=== PATIENT | male | born 1950 | race Two or more races ===

== ENCOUNTER → 2017-07-25 | Outpatient (CLI) | payer MEDICARE, BC ==
--- NOTE | 2017-07-25 09:05 | US ---
EXAMINATION TYPE: US abdomen limited DATE OF EXAM: 07/25/2017 COMPARISON: US 07/22/2008, CT 07/21/2015 CLINICAL HISTORY: R74.8 ABN Levels Of Other Serum Enzymes. Difficult and limited exam due to overlyin g bowel gas and patient body habitus EXAM MEASUREMENTS: Liver Length: 13.6 cm Gallbladder Wall: 0.2 cm CBD: 0.4 cm Right Kidney: 12.3 x 5.5 x 4.9 cm Pancreas: Obscured by bowel gas Liver: Limited visualization due to overlying bowel gas. Visualized portions are heterogeneous Gallbladder: wnl Evidence for sonographic Ferrara's sign: No CBD: wnl as visualized, distal portion obscured by bowel gas Right Kidney: No hydronephrosis or masses seen IMPRESSION: 1. Visualized right upper quadrant ultrasound is unremarkable. There is some limitation due to bowel gas and body habitus.
== END | disposition home or self-care (01) ==
LOC: RADUSWWP 08:16
PROVIDERS: ATTEND Family Medicine
DX: R74.8 Abnormal levels of other serum enzymes (principal)
CPT/HCPCS: 76705

== ENCOUNTER 2018-11-01 20:29 | Emergency (ER) | payer BC, MEDICARE ==
[2018-11-01] MEDS ORDERED: DEXAMETHASONE SOD PHOSPHATE 10 MG/ML 1 ML VIAL IM STA (21:55)
--- NOTE | 2018-11-01 22:20 | ED ---
General Adult HPI - General Source: patient, EMS, RN notes reviewed, old records reviewed Mode of arrival: EMS <Alejo Araujo - Last Filed: 11/01/18 23:21> <Iris Gaines - Last Filed: 11/02/18 21:18> - General Chief complaint: Weakness Stated complaint: Weakness Time Seen by Provider: 11/01/18 21:47 - History of Present Illness Initial comments: 67-year-old male patient with no pertinent past history presents ED chief complaint of back strain and decreased sensation and strength in lower extremities. Patient reports that he is very active today, moved a heavy stove. Denies any falls or trauma. Patient was that he was having back pain earlier. Patient reports that he sat down, and then experienced bouts of left paralumbar back pain. Patient now reports that he has loss of sensation in lower extremities, general region, significant weakness in his left lower extremity, moderate weakness in his right lower extremity. Patient denies any loss of bowel or bladder control. Patient denies any other complaints at this time. Systemic: Pt denies fatigue, fever/chills, rash. Pt denies weakness, night sweats, weight loss. Neuro: Pt denies headache, visual disturbances, syncope or pre-syncope. HEENT: Pt denies ocular discharge or irritation, otalgia, rhinorrhea, pharyngitis or notable lymphadenopathy. Cardiopulmonary: Pt denies chest pain, SOB, heart palpitations, dyspnea on exertion. Abdominal/GI: Pt denies abdominal pain, n/v/d. : Pt denies dysuria, burning w/ urination, frequency/urgency. Denies new onset urinary or bowel incontinence. MSK: Pt denies myalgia Neuro: Pt denies new onset weakness. (Alejo Araujo) - Related Data Home Medications Medication Instructions Recorded Confirmed Doxazosin Mesylate 4 mg PO HS 12/11/15 11/01/18 Felodipine [Felodipine ER] 10 mg PO DAILY 12/11/15 11/01/18 Hydrochlorothiazide 25 mg PO DAILY 12/11/15 11/01/18 Losartan Potassium 100 mg PO DAILY 12/11/15 11/01/18 Potassium Chloride ER [K-Dur 10] 10 meq PO DAILY 12/11/15 11/01/18 Allergies Allergy/AdvReac Type Severity Reaction Status Date / Time No Known Allergies Allergy Verified 11/01/18 21:43 Review of Systems ROS Other: All systems not noted in ROS Statement are negative. <Alejo Araujo - Last Filed: 11/01/18 23:21> ROS Other: All systems not noted in ROS Statement are negative. <Iris Gaines Lj - Last Filed: 11/02/18 21:18> ROS Statement: Those systems with pertinent positive or pertinent negative responses have been documented in the HPI. Past Medical History Past Medical History: Hypertension 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 Past Surgical History: No Surgical Hx Reported Past Psychological History: No Psychological Hx Reported Smoking Status: Never smoker Past Alcohol Use History: None Reported Past Drug Use History: None Reported <Alejo Araujo - Last Filed: 11/01/18 23:21> General Exam <Alejo Araujo - Last Filed: 11/01/18 23:21> - General Exam Comments Initial Comments: Constitutional: NAD, AOX3, Pt has pleasant affect. HEENT: NC/AT, trachea midline, neck supple, no lymphadenopathy. Posterior pharynx non erythematous, without exudates. External ears appear normal, without discharge. Mucous membranes moist. Eyes PERRLA, EOM intact. There is no scleral icterus. No pallor noted. Cardiopulmonary: RRR, no murmurs, rubs or gallops, no JVD noted. Lungs CTAB in anterior and posterior moore. No peripheral edema. Abdominal exam: Abdomen soft and non-distended. Abdomen non-tender to palpation in all 4 quadrants. Bowel sounds active in LLQ. No hepatosplenomegaly. No ecchymosis Neuro: CN II-XII grossly intact. No nuchal rigidity. No raccon eyes, no green sign, no hemotympanum. No cervical spinal tenderness. MSK: Significant decreased strength range of motion in lower extremities bilaterally. Sensation intact. 2/5 bilaterally. Rectal: Rectal tone diminished (Alejo Araujo) Course Vital Signs 11/01/18 11/01/18 11/01/18 20:52 22:28 23:31 Temperature 97.1 F L 98 F Pulse Rate 76 62 82 Respiratory 16 18 18 Rate Blood Pressure 143/90 124/94 153/95 O2 Sat by Pulse 98 96 98 Oximetry 11/02/18 00:06 Temperature Pulse Rate 82 Respiratory 17 Rate Blood Pressure 142/92 O2 Sat by Pulse 96 Oximetry Medical Decision Making - Lab Data Result diagrams: 11/01/18 22:05 11/01/18 22:05 <Alejo Araujo - Last Filed: 11/01/18 23:21> - Lab Data Result diagrams: 11/01/18 22:05 11/01/18 22:05 <Iris Gaines - Last Filed: 11/02/18 21:18> - Medical Decision Making 67-year-old male patient with no pertinent past history presents ED chief complaint of back strain and decreased sensation and strength in lower extremities. Patient reports that he is very active today, moved a heavy stove. Denies any falls or trauma. Patient was that he was having back pain earlier. Patient reports that he sat down, and then experienced bouts of left paralumbar back pain. Patient now reports that he has loss of sensation in lower extremities, general region, significant weakness in his left lower extremity, moderate weakness in his right lower extremity. Patient denies any loss of bowel or bladder control. Patient denies any other complaints at this time. Pt VSS, afebrile. Physical exam displayed: Significant decreased strength range of motion in lower extremities bilaterally. 2/5 bilaterally. Sensation intact. Rectal tone diminished. CT lumbar spine did not display process. Patient labs investigations unremarkable. Patient administered 10 mg Decadron. Bladder scan displayed >500, straight catheter performed. Patient will be transferred to [facility] for emergent MRI and neurosurgery. Case discussed and pt seen by Dr. Gaines. (Alejo Araujo) I personally saw and evaluated this patient. This is a 67-year-old gentleman who is ambulating in helping move a stove earlier today, sat down and became weak in his lower extremities. At this time the patient has decreased sensation in his bilateral lower extremities, near complete paralysis of his left lower extremity, he is able to move his right hip but paralysis distal to the knee. In addition the patient has acute urinary retention and reports loss of sensatio n in his groin and testicles. At this time I feel the patient requires further workup with an emergent MRI and consultation with neurosurgery. Patient care was discussed with transfer team at [facility], patient was accepted to the ER as a transfer by Dr. Lutz. (Iris Gaines) - Lab Data Lab Results 11/01/18 11/01/18 Range/Units 22:05 22:05 WBC 8.2 (3.8-10.6) k/uL RBC 4.71 (4.30-5.90) m/uL Hgb 14.7 (13.0-17.5) gm/dL Hct 43.5 (39.0-53.0) % MCV 92.4 (80.0-100.0) fL MCH 31.2 (25.0-35.0) pg MCHC 33.7 (31.0-37.0) g/dL RDW 14.5 (11.5-15.5) % Plt Count 233 (150-450) k/uL Neutrophils % 84 % Lymphocytes % 10 % Monocytes % 4 % Eosinophils % 1 % Basophils % 0 % Neutrophils # 6.9 (1.3-7.7) k/uL Lymphocytes # 0.9 L (1.0-4.8) k/uL Monocytes # 0.3 (0-1.0) k/uL Eosinophils # 0.1 (0-0.7) k/uL Basophils # 0.0 (0-0.2) k/uL Sodium 139 (137-145) mmol/L Potassium 3.3 L (3.5-5.1) mmol/L Chloride 102 (98-107) mmol/L Carbon Dioxide 26 (22-30) mmol/L Anion Gap 11 mmol/L BUN 17 (9-20) mg/dL Creatinine 0.61 L (0.66-1.25) mg/dL Est GFR (CKD-EPI)AfAm >90 (>60 ml/min/1.73 sqM) Est GFR (CKD-EPI)NonAf >90 (>60 ml/min/1.73 sqM) Glucose 125 H (74-99) mg/dL Calcium 9.8 (8.4-10.2) mg/dL Total Bilirubin 0.5 (0.2-1.3) mg/dL AST 41 (17-59) U/L ALT 57 (21-72) U/L Alkaline Phosphatase 100 (38-126) U/L Total Protein 7.7 (6.3-8.2) g/dL Albumin 4.5 (3.5-5.0) g/dL Disposition Is patient prescribed a controlled substance at d/c from ED?: No - Out of Hospital Transfer - Req. Specs Out of Hospital Transfer - Requested Specifics: Other Emergency Center ([facility]) <Alejo Araujo - Last Filed: 11/01/18 23:21> <Iris Gaines - Last Filed: 11/02/18 21:18> Clinical Impression: Lower extremity weakness Disposition: OTHER INSTITUTION NOT DEFINED Condition: Serious Referrals: Rip Baez DO [Primary Care Provider] - 1-2 days
[2018-11-01] MEDS ORDERED: ONDANSETRON 4 MG/2 ML VIAL IVP STA (22:31)
[2018-11-01 22:35] LABS: Basophils % (A) 0 %; Eosinophils # (A) 0.1 k/uL (0-0.7); Eosinophils % (A) 1 %; HCT 43.5 % (39.0-53.0); HGB 14.7 gm/dL (13.0-17.5); Lymphocytes # (A) 0.9 k/uL (1.0-4.8); Lymphocytes % (A) 10 %; MCH 31.2 pg (25.0-35.0); MCHC 33.7 g/dL (31.0-37.0); MCV 92.4 fL (80.0-100.0); Mean Platelet Volume 7.3; Monocytes # (A) 0.3 k/uL (0-1.0); Monocytes % (A) 4 %; Neutrophils # (A) 6.9 k/uL (1.3-7.7); Neutrophils % (A) 84 %; Platelet Count 233 k/uL (150-450); RBC 4.71 m/uL (4.30-5.90); RDW 14.5 % (11.5-15.5); WBC 8.2 k/uL (3.8-10.6)
[2018-11-01 22:52] LABS: ALT 57 U/L (21-72); AST 41 U/L (17-59); African American GFR (CKD) >90 (>60 ml/min/1.73 sqM); Albumin 4.5 g/dL (3.5-5.0); Alkaline Phosphatase 100 U/L (38-126); Anion Gap 11 mmol/L; Blood Urea Nitrogen 17 mg/dL (9-20); Calcium 9.8 mg/dL (8.4-10.2); Carbon Dioxide 26 mmol/L (22-30); Chloride 102 mmol/L (98-107); Glucose 125 mg/dL (74-99); Potassium 3.3 mmol/L (3.5-5.1); Sodium 139 mmol/L (137-145); Total Bilirubin 0.5 mg/dL (0.2-1.3); Total Protein 7.7 g/dL (6.3-8.2)
--- NOTE | 2018-11-01 23:03 | CT ---
EXAM: CT Lumbar Spine Without Intravenous Contrast CLINICAL HISTORY: Low back pain after moving appliances. TECHNIQUE: Axial computed tomography images of the lumbar spine without intravenous contrast. DLP is 1238 mGy-cm. This CT exam was performed using one or more of the following dose reduction techniques: automated exposure control, adjustment of the mA and/or kV according to patient size, and/or use of iterative reconstruction technique. Coronal and sagittal reconstructions are performed COMPARISON: No relevant prior studies available. FINDINGS: Vertebrae: Normal alignment. No fracture. Discs/spinal canal/neural foramina: Moderate degenerative disc disease, characterized by disc space narrowing, circumferential disc bulge/osteophyte complex, ligamentum flavum thickening, and hypertrophic facet arthropathy, causing various degrees of mild thecal sac compression and mild to moderate neural foraminal narrowing, worse in lower lumbar spine especially on the right. Soft tissues: Unremarkable. Kidneys and ureters: 3 mm nonobstructing midpole right renal stone. IMPRESSION: No acute findings. Moderate degenerative disc disease
[2018-11-01 23:32] VITALS: PULSE 82; TEMP 98
[2018-11-01] MEDS ORDERED: KETOROLAC 30 MG/ML 1 ML VIAL IVP STA (23:46)
[2018-11-02 00:07] VITALS: BP 142/92; RESP 17
== END 2018-11-02 00:10 | disposition short-term general hospital (02) ==
LOC: EC 20:29
DX: R29.898 Other symptoms and signs involving the musculoskeletal system (principal); K62.89 Other specified diseases of anus and rectum; G83.14 Monoplegia of lower limb affecting left nondominant side; G83.11 Monoplegia of lower limb affecting right dominant side; R33.9 Retention of urine, unspecified; N50.89 Other specified disorders of the male genital organs; M54.5 Low back pain; I10 Essential (primary) hypertension; Z79.899 Other long term (current) drug therapy; X50.0XXA Overexertion from strenuous movement or load, initial encounter
CPT/HCPCS: 99285; 51701; 96374; 96375; 96372; 36415; 80053; 85025; 72131; J1100; J2405; J1885

== ENCOUNTER 2019-01-05 12:25 | Emergency (ER) | payer MEDICARE, BC ==
[2019-01-05 12:41] VITALS: RESP 18; TEMP 98.4
--- NOTE | 2019-01-05 13:57 | ED ---
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 He has to straight cath himself and is incontinent of stool. Patient reports that he has of yesterday evening into today started at 7 hematuria, lower pelvic pain and pressure. He reports that when he Himself he noticed some bloody urine. He also states that he's been having irregular stools and has had a hard time with bowel "training". - Related Data Home Medications Medication Instructions Recorded Confirmed Doxazosin Mesylate 4 mg PO HS 12/11/15 11/01/18 Felodipine [Felodipine ER] 10 mg PO DAILY 12/11/15 11/01/18 Hydrochlorothiazide 25 mg PO DAILY 12/11/15 11/01/18 Losartan Potassium 100 mg PO DAILY 12/11/15 11/01/18 Potassium Chloride ER [K-Dur 10] 10 meq PO DAILY 12/11/15 11/01/18 Previous Rx's Medication Instructions Recorded Ciprofloxacin HCl [Cipro] 500 mg PO Q12HR 10 Days #20 tab 01/05/19 Allergies Allergy/AdvReac Type Severity Reaction Status Date / Time No Known Allergies Allergy Verified 01/05/19 12:41 Review of Systems ROS Statement: Those systems with pertinent positive or pertinent negative responses have been documented in the HPI. ROS Other: All systems not noted in ROS Statement are negative. Past Medical History Past Medical History: CVA/TIA, Hypertension 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 Past Surgical History: No Surgical Hx Reported Past Psychological History: No Psychological Hx Reported Smoking Status: Never smoker Past Alcohol Use History: None Reported Past Drug Use History: None Reported General Exam Limitations: physical limitation General appearance: alert, in no apparent distress Head exam: Present: atraumatic, normocephalic, normal inspection Eye exam: Present: normal appearance, PERRL, EOMI. Absent: scleral icterus, conjunctival injection, periorbital swelling ENT exam: Present: normal exam, mucous membranes moist Neck exam: Present: normal inspection. Absent: tenderness, meningismus, lymphadenopathy Respiratory exam: Present: normal lung sounds bilaterally. Absent: respiratory distress, wheezes, rales, rhonchi, stridor Cardiovascular Exam: Present: regular rate, normal rhythm, normal heart sounds. Absent: systolic murmur, diastolic murmur, rubs, gallop, clicks GI/Abdominal exam: Present: soft, tenderness (suprapubic), normal bowel sounds. Absent: distended, guarding, rebound, rigid Extremities exam: Present: normal inspection, full ROM, normal capillary refill, other (paralysis lower extremity). Absent: tenderness, pedal edema, joint swelling, calf tenderness Back exam: Present: normal inspection Neurological exam: Present: alert, oriented X3, CN II-XII intact Course Vital Signs 01/05/19 01/05/19 12:37 15:59 Temperature 98.4 F Pulse Rate 77 74 Respiratory 18 18 Rate Blood Pressure 158/98 143/98 O2 Sat by Pulse 98 97 Oximetry Medical Decision Making - Medical Decision Making 60-year-old male presents today with a history of paralysis and lower sternum is due to spinal cord stroke. He has a straight cath himself. Patient complains of some hematuria, lower pelvic pressure. At this time patient's labwork was reviewed to show evidence of a urinary tract infection. Patient was given 1 dose of IV Rocephin, and urine culture completed. We'll put the Patient on Cipro for discharge. Discussed the importance of sterile technique with straight cathing. Discussed return parameters. - Lab Data Result diagrams: 01/05/19 14:24 01/05/19 14:24 Lab Results 01/05/19 01/05/19 01/05/19 Range/Units 14:10 14:24 14:24 WBC 5.1 (3.8-10.6) k/uL RBC 4.46 (4.30-5.90) m/uL Hgb 14.2 (13.0-17.5) gm/dL Hct 41.8 (39.0-53.0) % MCV 93.8 (80.0-100.0) fL MCH 31.9 (25.0-35.0) pg MCHC 34.1 (31.0-37.0) g/dL RDW 13.6 (11.5-15.5) % Plt Count 279 (150-450) k/uL Neutrophils % 59 % Lymphocytes % 20 % Monocytes % 11 % Eosinophils % 5 % Basophils % 1 % Neutrophils # 3.0 (1.3-7.7) k/uL Lymphocytes # 1.0 (1.0-4.8) k/uL Monocytes # 0.6 (0-1.0) k/uL Eosinophils # 0.3 (0-0.7) k/uL Basophils # 0.1 (0-0.2) k/uL Sodium 139 (137-145) mmol/L Potassium 4.1 (3.5-5.1) mmol/L Chloride 105 (98-107) mmol/L Carbon Dioxide 27 (22-30) mmol/L Anion Gap 7 mmol/L BUN 16 (9-20) mg/dL Creatinine 0.52 L (0.66-1.25) mg/dL Est GFR (CKD-EPI)AfAm >90 (>60 ml/min/1.73 sqM) Est GFR (CKD-EPI)NonAf >90 (>60 ml/min/1.73 sqM) Glucose 111 H (74-99) mg/dL Calcium 9.3 (8.4-10.2) mg/dL Total Bilirubin 0.4 (0.2-1.3) mg/dL AST 19 (17-59) U/L ALT 24 (21-72) U/L Alkaline Phosphatase 108 (38-126) U/L Total Protein 6.4 (6.3-8.2) g/dL Albumin 3.6 (3.5-5.0) g/dL Urine Color Yellow Urine Appearance Turbid (Clear) Urine pH 6.0 (5.0-8.0) Ur Specific [place] 1.019 (1.001-1.035) Urine Protein 1+ H (Negative) Urine Glucose (UA) Negative (Negative) Urine Ketones Negative (Negative) Urine Blood Moderate H (Negative) Urine Nitrite Positive (Negative) Urine Bilirubin Negative (Negative) Urine Urobilinogen <2.0 (<2.0) mg/dL Ur Leukocyte Esterase Large H (Negative) Urine RBC 70 H (0-5) /hpf Urine WBC >182 H (0-5) /hpf Urine WBC Clumps Many H (None) /hpf Urine Bacteria Few H (None) /hpf Disposition Clinical Impression: UTI (urinary tract infection), Cystitis Disposition: HOME SELF-CARE Condition: Good Instructions (If sedation given, give patient instructions): Catheter- associated Urinary Tract Infection (ED) Additional Instructions: Patient advised to take antibiotics as prescribed. Patient should use proper technique with self cathing. Return to the emergency department if any alarming signs or symptoms occur. Prescriptions: Ciprofloxacin HCl [Cipro] 500 mg PO Q12HR 10 Days #20 tab Is patient prescribed a controlled substance at d/c from ED?: No Referrals: Rip Baez DO [Primary Care Provider] - 1-2 days Time of Disposition: 15:12
[2019-01-05 14:40] LABS: Appearance,Urine Turbid (Clear); Bacteria,Urine Few /hpf; Bilirubin,Urine Negative (Negative); Blood,Urine Moderate (Negative); Color,Urine Yellow; Glucose,Urine (UA) Negative (Negative); Ketones,Urine Negative (Negative); Leukocyte Esterase,Urine Large (Negative); Nitrite,Urine Positive (Negative); Protein,Urine 1+ (Negative); RBC,Urine 70 /hpf (0-5); Specific Gravity,Urine 1.019 (1.001-1.035); Urobilinogen,Urine <2.0 mg/dL (<2.0)
[2019-01-05 14:48] LABS: ALT 24 U/L (21-72); AST 19 U/L (17-59); African American GFR (CKD) >90 (>60 ml/min/1.73 sqM); Albumin 3.6 g/dL (3.5-5.0); Alkaline Phosphatase 108 U/L (38-126); Anion Gap 7 mmol/L; Blood Urea Nitrogen 16 mg/dL (9-20); Calcium 9.3 mg/dL (8.4-10.2); Carbon Dioxide 27 mmol/L (22-30); Chloride 105 mmol/L (98-107); Glucose 111 mg/dL (74-99); Potassium 4.1 mmol/L (3.5-5.1); Sodium 139 mmol/L (137-145); Total Bilirubin 0.4 mg/dL (0.2-1.3); Total Protein 6.4 g/dL (6.3-8.2)
[2019-01-05 14:58] LABS: Basophils # (A) 0.1 k/uL (0-0.2); Basophils % (A) 1 %; Eosinophils # (A) 0.3 k/uL (0-0.7); Eosinophils % (A) 5 %; HCT 41.8 % (39.0-53.0); HGB 14.2 gm/dL (13.0-17.5); Lymphocytes % (A) 20 %; MCH 31.9 pg (25.0-35.0); MCHC 34.1 g/dL (31.0-37.0); MCV 93.8 fL (80.0-100.0); Mean Platelet Volume 5.9; Monocytes # (A) 0.6 k/uL (0-1.0); Monocytes % (A) 11 %; Neutrophils % (A) 59 %; Platelet Count 279 k/uL (150-450); RBC 4.46 m/uL (4.30-5.90); RDW 13.6 % (11.5-15.5); WBC 5.1 k/uL (3.8-10.6)
[2019-01-05 16:00] VITALS: BP 143/98; PULSE 74
== END 2019-01-05 16:13 | disposition home or self-care (01) ==
LOC: EC 12:25
DX: N30.91 Cystitis, unspecified with hematuria (principal); G83.89 Other specified paralytic syndromes; R15.9 Full incontinence of feces; I10 Essential (primary) hypertension; Z79.899 Other long term (current) drug therapy; Z86.73 Personal history of transient ischemic attack (TIA), and cerebral infarction without residual deficits
CPT/HCPCS: 36415; 80053; 85025; 81001; 87086; 99284; 51701; 96365; J0696; 87077; 87186

== ENCOUNTER 2019-01-18 07:34 | Emergency (ER) | payer MEDICARE, BC ==
[2019-01-18 07:40] VITALS: TEMP 97.9
--- NOTE | 2019-01-18 08:22 | ED ---
Male Urogenital HPI - General Chief complaint: Urogenital Stated complaint: catheter problems Time Seen by Provider: 01/18/19 07:42 Source: patient Mode of arrival: wheelchair Limitations: physical limitation - History of Present Illness Initial comments: 68-year-old male with history of spinal stroke presents emergency department for chief complaint of inability to pass catheter.patient states he recently had a spinal stroke and was at a rehabilitation center, where he was taught how to self catheterize due to urinary retention from residual spinal injury. Patient states today around 5:30 AM he was unable to pass the catheter fully into his bladder. He states he is unable to get urinary return. Patient states he feels like he is blocked by in origin. Patient denies any significant abdominal pain elicited by pressure. Patient denies any chest pain, testicular pain or shortness of breath, headache dizziness. Patient states he has an appointment tomorrow to address elevated BP reading with PCP. Pt states he recently was being treated with ABX for UTI. Denies urologic care. Denies fevers. Remaining ROS (-). Upon arrival bP elevated, pt afebrile. Wheel care bound appears nontoxic/well. No distress. - Related Data Home Medications Medication Instructions Recorded Confirmed Doxazosin Mesylate 4 mg PO HS 12/11/15 11/01/18 Felodipine [Felodipine ER] 10 mg PO DAILY 12/11/15 11/01/18 Hydrochlorothiazide 25 mg PO DAILY 12/11/15 11/01/18 Losartan Potassium 100 mg PO DAILY 12/11/15 11/01/18 Potassium Chloride ER [K-Dur 10] 10 meq PO DAILY 12/11/15 11/01/18 Previous Rx's Medication Instructions Recorded Ciprofloxacin HCl [Cipro] 500 mg PO Q12HR 10 Days #20 tab 01/05/19 Allergies Allergy/AdvReac Type Severity Reaction Status Date / Time No Known Allergies Allergy Verified 01/18/19 07:35 Review of Systems ROS Statement: Those systems with pertinent positive or pertinent negative responses have been documented in the HPI. ROS Other: All systems not noted in ROS Statement are negative. Past Medical History Past Medical History: CVA/TIA, Hypertension 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 Past Surgical History: No Surgical Hx Reported Past Psychological History: No Psychological Hx Reported Smoking Status: Never smoker Past Alcohol Use History: None Reported Past Drug Use History: None Reported General Exam - General Exam Comments Initial Comments: General: The patient is awake and alert, in no distress, and does not appear acutely ill. Eye: +3 mm pupils are equal, round and reactive to light, extra-ocular movements are intact. No nystagmus. There is normal conjunctiva bilaterally. No signs of icterus. Cardiovascular: There is a regular rate and rhythm. No murmur, rub or gallop is appreciated. Respiratory: Lungs are clear to auscultation, respirations are non-labored, breath sounds are equal. No wheezes, stridor, rales, or rhonchi. Gastrointestinal: Soft, non-distended, non-tender abdomen without masses or organomegaly noted. There is no rebound or guarding present. Musculoskeletal: Normal ROM, no tenderness. Strength 5/5. Sensation intact. Radidal pulses equal bilaterally 2+. Neurological: A&O x 3. CN II-XII intact grossly, wheelchair bound. Coordination appears grossly intact. Speech is normal. Skin: Skin is warm and dry and no rashes or lesions are noted. Psychiatric: Cooperative, appropriate mood & affect, normal judgment. Limitations: physical limitation Course Vital Signs 01/18/19 07:35 Temperature 97.9 F Pulse Rate 74 Respiratory 18 Rate Blood Pressure 186/104 O2 Sat by Pulse 98 Oximetry Medical Decision Making - Medical Decision Making 68-year-old male presenting to the emergency department for evaluation of unable to pass self-catheterization. No fevers no flank pain. Abdominal exam benign.Urinary catheter was placed without difficulty. Urinalysis unremarkable for infection. Patient's catheter was left in place. Patient has primary care provider appointment tomorrow where I recommended attempt at removal. Patient given urological f/u. Return parameters discussed, pateint discharged appearing well. case discussed with attending provider who is agreeable care plan discharge at this time. Patient was agreeable. - Lab Data Lab Results 01/18/19 Range/Units 08:25 Urine Color Yellow Urine Appearance Clear (Clear) Urine pH 6.5 (5.0-8.0) Ur Specific [place] 1.014 (1.001-1.035) Urine Protein Negative (Negative) Urine Glucose (UA) Negative (Negative) Urine Ketones Negative (Negative) Urine Blood Negative (Negative) Urine Nitrite Negative (Negative) Urine Bilirubin Negative (Negative) Urine Urobilinogen <2.0 (<2.0) mg/dL Ur Leukocyte Esterase Small H (Negative) Disposition Clinical Impression: Urinary retention Disposition: HOME SELF-CARE Condition: Good Additional Instructions: Please use medication as discussed. Please follow-up with family doctor in the next 2 days, and urology as discussed. Can attempt catheter removal with PCP tomorrow. Please return to emergency room if the symptoms increase or worsen or for any other concerns-fevers. Is patient prescribed a controlled substance at d/c from ED?: No Referrals: Rip Baez DO [Primary Care Provider] - 1-2 days Eb Kelley MD [STAFF PHYSICIAN] - 1-2 days Time of Disposition: 08:37
[2019-01-18 09:01] LABS: Appearance,Urine Clear (Clear); Bilirubin,Urine Negative (Negative); Blood,Urine Negative (Negative); Color,Urine Yellow; Glucose,Urine (UA) Negative (Negative); Ketones,Urine Negative (Negative); Leukocyte Esterase,Urine Small (Negative); Nitrite,Urine Negative (Negative); PH, Urine 6.5 (5.0-8.0); Protein,Urine Negative (Negative); Specific Gravity,Urine 1.014 (1.001-1.035); Urobilinogen,Urine <2.0 mg/dL (<2.0)
[2019-01-18 09:05] VITALS: BP 180/88; PULSE 70; RESP 16
[2019-01-18 09:50] LABS: Amorphous Sediment,Urine Few /hpf
== END 2019-01-18 08:41 | disposition home or self-care (01) ==
LOC: EC 07:34
DX: R33.9 Retention of urine, unspecified (principal); I10 Essential (primary) hypertension; Z79.899 Other long term (current) drug therapy; Z99.3 Dependence on wheelchair; Z86.73 Personal history of transient ischemic attack (TIA), and cerebral infarction without residual deficits
CPT/HCPCS: 51702; 81001; 99283

== ENCOUNTER 2019-02-12 16:44 | Emergency (ER) | payer MEDICARE ==
--- NOTE | 2019-02-12 17:25 | ED ---
Male Urogenital HPI - General Chief complaint: Urogenital Stated complaint: UTI Time Seen by Provider: 02/12/19 17:05 Source: patient Mode of arrival: wheelchair Limitations: physical limitation - History of Present Illness Initial comments: patient is a 68-year-old male presenting to the emergency department with a chief complaint of testicular tenderness or swelling. Patient reports he developed some swelling over the last few days. 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 He went to his primary care who present to come to the ED for further evaluation. Patient reports testicular tenderness and swelling particularly on the right side. Patient has a nausea vomiting diarrhea abdominal pain. Denies taking any medication to alleviate the symptoms. - Related Data Home Medications Medication Instructions Recorded Confirmed Doxazosin Mesylate 4 mg PO HS 12/11/15 11/01/18 Felodipine [Felodipine ER] 10 mg PO DAILY 12/11/15 11/01/18 Hydrochlorothiazide 25 mg PO DAILY 12/11/15 11/01/18 Losartan Potassium 100 mg PO DAILY 12/11/15 11/01/18 Potassium Chloride ER [K-Dur 10] 10 meq PO DAILY 12/11/15 11/01/18 Previous Rx's Medication Instructions Recorded Ciprofloxacin HCl [Cipro] 500 mg PO Q12HR 10 Days #20 tab 01/05/19 Ciprofloxacin HCl [Cipro] 500 mg PO Q12HR #28 tablet 02/12/19 Allergies Allergy/AdvReac Type Severity Reaction Status Date / Time No Known Allergies Allergy Verified 02/12/19 17:04 Review of Systems ROS Statement: Those systems with pertinent positive or pertinent negative responses have been documented in the HPI. ROS Other: All systems not noted in ROS Statement are negative. Past Medical History Past Medical History: CVA/TIA, Hypertension 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 Past Surgical History: No Surgical Hx Reported Past Psychological History: No Psychological Hx Reported Smoking Status: Never smoker Past Alcohol Use History: None Reported Past Drug Use History: None Reported General Exam Limitations: physical limitation General appearance: alert, in no apparent distress Head exam: Present: atraumatic, normocephalic, normal inspection Eye exam: Present: normal appearance Pupils: Present: normal accommodation ENT exam: Present: normal exam, mucous membranes moist Neck exam: Present: normal inspection Respiratory exam: Present: normal lung sounds bilaterally Cardiovascular Exam: Present: regular rate, normal rhythm, normal heart sounds exam: Present: testicular tenderness (right-sided), scrotal swelling (right- sided). Absent: urethral discharge, vertical testicular lie, circumcision Extremities exam: Present: normal inspection Back exam: Present: normal inspection Neurological exam: Present: alert, oriented X3 Psychiatric exam: Present: normal affect, normal mood Skin exam: Present: warm, dry, intact, normal color Course Vital Signs 02/12/19 02/12/19 17:01 18:46 Temperature 99.2 F 98.1 F Pulse Rate 102 H 82 Respiratory 16 18 Rate Blood Pressure 134/85 139/86 O2 Sat by Pulse 99 97 Oximetry Medical Decision Making - Medical Decision Making patient is 68-year-old female resenting to the emergency department with a chief complaint of testicular pain. Patient history Himself because he is paralyzed below the pelvis. He is prone to frequent UTIs. Urine shows no sign of acute urinary tract infection at this time. Scrotal ultrasound shows orchitis and epididymitis. Patient does have positive cremasterics reflex. Patient will be treated with a single dose of Cipro in the ED and discharged with a 14 day course of the medication. Patient was about the possible side effects of the medication. Should return parameters were thoroughly discussed with patient was understanding and agreeable. Case discussed with physician. - Lab Data Lab Results 02/12/19 Range/Units 17:35 Urine Color Yellow Urine Appearance Clear (Clear) Urine pH 6.5 (5.0-8.0) Ur Specific [place] 1.023 (1.001-1.035) Urine Protein 1+ H (Negative) Urine Glucose (UA) Negative (Negative) Urine Ketones Negative (Negative) Urine Blood Negative (Negative) Urine Nitrite Negative (Negative) Urine Bilirubin Negative (Negative) Urine Urobilinogen 3.0 (<2.0) mg/dL Ur Leukocyte Esterase Small H (Negative) Urine RBC 2 (0-5) /hpf Urine WBC 13 H (0-5) /hpf Ur Squamous Epith Cells <1 (0-4) /hpf Urine Bacteria Occasional H (None) /hpf Urine Mucus Rare H (None) /hpf Disposition Clinical Impression: Orchitis and epididymitis Disposition: HOME SELF-CARE Condition: Stable Instructions (If sedation given, give patient instructions): Epididymo-Orchitis (ED) Additional Instructions: Please take prescribed medication as directed. Please follow with urology. Please return to emergency department if symptoms worsen. Prescriptions: Ciprofloxacin HCl [Cipro] 500 mg PO Q12HR #28 tablet Is patient prescribed a controlled substance at d/c from ED?: No Referrals: Rip Baez DO [Primary Care Provider] - 1-2 days Time of Disposition: 19:07
--- NOTE | 2019-02-12 18:42 | US ---
EXAMINATION TYPE: US scrotum with doppler. Grayscale and color Doppler Duplex imaging performed of t he scrotum. DATE OF EXAM: 02/12/2019 COMPARISON: NONE CLINICAL HISTORY: testicular pain. UTI, patient has h/o spinal stroke in Nov 2018, swelling in right testicle today EXAM MEASUREMENTS: TESTICLES: Right Testicle: 5.1 x 4.7 x 3.5 cm Left Testicle: 4.9 x 2.4 x 3.0 cm EPIDIDYMIS HEAD: Right Epididymis: 0.9 cm Left Epididymis: 0.6 cm Doppler performed to assess for testicular vascularity; good bilateral color flow and waveforms are s een. There is no evidence of testicular torsion. 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 No testicular torsion or m ass.
[2019-02-12 18:49] VITALS: BP 139/86; PULSE 82; RESP 18; TEMP 98.1
[2019-02-12 18:55] LABS: Appearance,Urine Clear (Clear); Bacteria,Urine Occasional /hpf; Bilirubin,Urine Negative (Negative); Blood,Urine Negative (Negative); Color,Urine Yellow; Glucose,Urine (UA) Negative (Negative); Ketones,Urine Negative (Negative); Leukocyte Esterase,Urine Small (Negative); Mucus,Urine Rare /hpf; Nitrite,Urine Negative (Negative); PH, Urine 6.5 (5.0-8.0); Protein,Urine 1+ (Negative); RBC,Urine 2 /hpf (0-5); Specific Gravity,Urine 1.023 (1.001-1.035); Squamous Epithelial Cell,Urine <1 /hpf (0-4)
[2019-02-12] MEDS ORDERED: LEVOFLOXACIN 500 MG TAB PO STA (19:00)
[2019-02-12] MEDS ORDERED: CIPROFLOXACIN HCL 500 MG TAB PO STA (19:01)
== END 2019-02-12 19:24 | disposition home or self-care (01) ==
LOC: EC 16:44
DX: N45.3 Epididymo-orchitis (principal); I10 Essential (primary) hypertension; Z79.899 Other long term (current) drug therapy; Z86.73 Personal history of transient ischemic attack (TIA), and cerebral infarction without residual deficits
CPT/HCPCS: 76870; 81001; 93975; 99284

== ENCOUNTER 2019-12-08 17:27 | Inpatient (IN) | payer BC, MEDICARE ==
[2019-12-08] MEDS ORDERED: ACETAMINOPHEN TAB 500 MG TAB PO STA (18:06)
--- NOTE | 2019-12-08 18:17 | ED ---
General Adult HPI - General Chief complaint: Fever Stated complaint: fever Time Seen by Provider: 12/08/19 18:04 Source: patient, family, RN notes reviewed Mode of arrival: wheelchair Limitations: physical limitation - History of Present Illness Initial comments: Patient is a pleasant 60-year-old male presenting to the emergency department with fever. Patient has history of 2 recent urinary tract infections. Patient has been on antibiotics twice, one time was Cipro, unclear the other time. Patient did follow-up with his urologist and had x-ray and ultrasound done today. Ultrasound was concerning for kidney stone and hydronephrosis. Patient then developed fever following those tests. Patient has no flank pain at this time however was having flank pain previously. No abdominal pain. No cough or dyspnea. No leg pain or leg swelling. Patient is wheelchair bound secondary to history of spinal stroke. - Related Data Home Medications Medication Instructions Recorded Confirmed Doxazosin Mesylate 4 mg PO HS 12/11/15 11/01/18 Felodipine [Felodipine ER] 10 mg PO DAILY 12/11/15 11/01/18 Hydrochlorothiazide 25 mg PO DAILY 12/11/15 11/01/18 Losartan Potassium 100 mg PO DAILY 12/11/15 11/01/18 Potassium Chloride ER [K-Dur 10] 10 meq PO DAILY 12/11/15 11/01/18 Previous Rx's Medication Instructions Recorded Ciprofloxacin HCl [Cipro] 500 mg PO Q12HR 10 Days #20 tab 01/05/19 Ciprofloxacin HCl [Cipro] 500 mg PO Q12HR #28 tablet 02/12/19 Allergies Allergy/AdvReac Type Severity Reaction Status Date / Time morphine AdvReac Nausea & Verified 12/08/19 17:55 Vomiting Review of Systems ROS Statement: Those systems with pertinent positive or pertinent negative responses have been documented in the HPI. ROS Other: All systems not noted in ROS Statement are negative. Constitutional: Denies: fever Eyes: Denies: eye pain ENT: Denies: ear pain Respiratory: Denies: cough, dyspnea Cardiovascular: Denies: chest pain Endocrine: Reports: fatigue Gastrointestinal: Reports: as per HPI Genitourinary: Reports: other (Patient does self catheterize) Musculoskeletal: Denies: back pain Skin: Denies: rash Neurological: Reports: as per HPI (Chronic, no acute changes) Past Medical History Past Medical History: CVA/TIA, Hypertension 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 Past Surgical History: No Surgical Hx Reported Past Psychological History: No Psychological Hx Reported Smoking Status: Never smoker Past Alcohol Use History: None Reported Past Drug Use History: None Reported General Exam Limitations: physical limitation General appearance: alert, in no apparent distress Head exam: Present: normocephalic Eye exam: Present: normal appearance Neck exam: Present: normal inspection Respiratory exam: Present: normal lung sounds bilaterally Cardiovascular Exam: Present: regular rate, normal rhythm GI/Abdominal exam: Present: soft. Absent: tenderness Extremities exam: Present: normal inspection Neurological exam: Present: alert Psychiatric exam: Present: normal affect, normal mood Skin exam: Present: normal color Course Vital Signs 12/08/19 12/08/19 17:51 20:07 Temperature 101.9 F H Pulse Rate 108 H 88 Respiratory 20 18 Rate Blood Pressure 144/82 112/77 O2 Sat by Pulse 99 95 Oximetry - Reevaluation(s) Reevaluation #1: 12/08/19 20:53 Patient does meet sepsis criteria diagnosed at 2049. Blood culture and lactic acid have been ordered. IV and about X will be ordered. Medical Decision Making - Medical Decision Making Case was discussed with Dr. Linn who will admit patient for observation and recommends Unasyn and gent. Patient and family updated. - Lab Data Result diagrams: 12/08/19 18:24 12/08/19 18:24 Lab Results 12/08/19 12/08/19 12/08/19 Range/Units 18:24 18:24 18:24 WBC 11.4 H (3.8-10.6) k/uL RBC 4.73 (4.30-5.90) m/uL Hgb 14.3 (13.0-17.5) gm/dL Hct 43.3 (39.0-53.0) % MCV 91.4 (80.0-100.0) fL MCH 30.2 (25.0-35.0) pg MCHC 33.0 (31.0-37.0) g/dL RDW 13.4 (11.5-15.5) % Plt Count 274 (150-450) k/uL Neutrophils % 81 % Lymphocytes % 11 % Monocytes % 5 % Eosinophils % 1 % Basophils % 0 % Neutrophils # 9.2 H (1.3-7.7) k/uL Lymphocytes # 1.3 (1.0-4.8) k/uL Monocytes # 0.6 (0-1.0) k/uL Eosinophils # 0.2 (0-0.7) k/uL Basophils # 0.0 (0-0.2) k/uL PT 10.1 (9.0-12.0) sec INR 1.0 (<1.2) APTT 27.2 (22.0-30.0) sec Sodium (137-145) mmol/L Potassium (3.5-5.1) mmol/L Chloride (98-107) mmol/L Carbon Dioxide (22-30) mmol/L Anion Gap mmol/L BUN (9-20) mg/dL Creatinine (0.66-1.25) mg/dL Est GFR (CKD-EPI)AfAm (>60 ml/min/1.73 sqM) Est GFR (CKD-EPI)NonAf (>60 ml/min/1.73 sqM) Glucose (74-99) mg/dL Plasma Lactic Acid [place] (0.7-2.0) mmol/L Calcium (8.4-10.2) mg/dL Total Bilirubin (0.2-1.3) mg/dL AST (17-59) U/L ALT (4-49) U/L Alkaline Phosphatase (38-126) U/L Total Protein (6.3-8.2) g/dL Albumin (3.5-5.0) g/dL Urine Color Yellow Urine Appearance Cloudy (Clear) Urine pH 6.0 (5.0-8.0) Ur Specific [place] 1.018 (1.001-1.035) Urine Protein 1+ H (Negative) Urine Glucose (UA) Negative (Negative) Urine Ketones Negative (Negative) Urine Blood Moderate H (Negative) Urine Nitrite Negative (Negative) Urine Bilirubin Negative (Negative) Urine Urobilinogen 2.0 (<2.0) mg/dL Ur Leukocyte Esterase Large H (Negative) Urine RBC 98 H (0-5) /hpf Urine WBC >182 H (0-5) /hpf Urine WBC Clumps Few H (None) /hpf Ur Squamous Epith Cells <1 (0-4) /hpf Urine Bacteria Few H (None) /hpf Urine Mucus Rare H (None) /hpf Urine Yeast (Budding) Occasional H (None) /hpf 10/07/20 10/07/20 Range/Units 18:24 18:24 WBC (3.8-10.6) k/uL RBC (4.30-5.90) m/uL Hgb (13.0-17.5) gm/dL Hct (39.0-53.0) % MCV (80.0-100.0) fL MCH (25.0-35.0) pg MCHC (31.0-37.0) g/dL RDW (11.5-15.5) % Plt Count (150-450) k/uL Neutrophils % % Lymphocytes % % Monocytes % % Eosinophils % % Basophils % % Neutrophils # (1.3-7.7) k/uL Lymphocytes # (1.0-4.8) k/uL Monocytes # (0-1.0) k/uL Eosinophils # (0-0.7) k/uL Basophils # (0-0.2) k/uL PT (9.0-12.0) sec INR (<1.2) APTT (22.0-30.0) sec Sodium 136 L (137-145) mmol/L Potassium 3.8 (3.5-5.1) mmol/L Chloride 102 (98-107) mmol/L Carbon Dioxide 26 (22-30) mmol/L Anion Gap 8 mmol/L BUN 16 (9-20) mg/dL Creatinine 0.52 L (0.66-1.25) mg/dL Est GFR (CKD-EPI)AfAm >90 (>60 ml/min/1.73 sqM) Est GFR (CKD-EPI)NonAf >90 (>60 ml/min/1.73 sqM) Glucose 173 H (74-99) mg/dL Plasma Lactic Acid [place] 1.3 (0.7-2.0) mmol/L Calcium 9.3 (8.4-10.2) mg/dL Total Bilirubin 0.9 (0.2-1.3) mg/dL AST 26 (17-59) U/L ALT 35 (4-49) U/L Alkaline Phosphatase 141 H (38-126) U/L Total Protein 6.8 (6.3-8.2) g/dL Albumin 3.9 (3.5-5.0) g/dL Urine Color Urine Appearance (Clear) Urine pH (5.0-8.0) Ur Specific [place] (1.001-1.035) Urine Protein (Negative) Urine Glucose (UA) (Negative) Urine Ketones (Negative) Urine Blood (Negative) Urine Nitrite (Negative) Urine Bilirubin (Negative) Urine Urobilinogen (<2.0) mg/dL Ur Leukocyte Esterase (Negative) Urine RBC (0-5) /hpf Urine WBC (0-5) /hpf Urine WBC Clumps (None) /hpf Ur Squamous Epith Cells (0-4) /hpf Urine Bacteria (None) /hpf Urine Mucus (None) /hpf Urine Yeast (Budding) (None) /hpf - Radiology Data Radiology results: image reviewed (Chest x-ray shows no acute process) Critical Care Time Critical Care Time: Yes Total Critical Care Time: 31 Disposition Clinical Impression: Bladder stone, Urinary tract infection Disposition: ADMITTED IP TO THIS HOSP Is patient prescribed a controlled substance at d/c from ED?: No Referrals: Rip Baez DO [Primary Care Provider] - 1-2 days Decision Time: 20:53
[2019-12-08] MEDS: SODIUM CHLORIDE 0.9% 1,000 ML IV SCH (18:51)
[2019-12-08 18:59] LABS: Basophils % (A) 0 %; Eosinophils # (A) 0.2 k/uL (0-0.7); Eosinophils % (A) 1 %; HCT 43.3 % (39.0-53.0); HGB 14.3 gm/dL (13.0-17.5); Lymphocytes # (A) 1.3 k/uL (1.0-4.8); Lymphocytes % (A) 11 %; MCH 30.2 pg (25.0-35.0); MCV 91.4 fL (80.0-100.0); Mean Platelet Volume 6.7; Monocytes # (A) 0.6 k/uL (0-1.0); Monocytes % (A) 5 %; Neutrophils # (A) 9.2 k/uL (1.3-7.7); Neutrophils % (A) 81 %; Platelet Count 274 k/uL (150-450); RBC 4.73 m/uL (4.30-5.90); RDW 13.4 % (11.5-15.5); WBC 11.4 k/uL (3.8-10.6)
[2019-12-08 19:09] LABS: ALT 35 U/L (4-49); AST 26 U/L (17-59); African American GFR (CKD) >90 (>60 ml/min/1.73 sqM); Albumin 3.9 g/dL (3.5-5.0); Alkaline Phosphatase 141 U/L (38-126); Anion Gap 8 mmol/L; Blood Urea Nitrogen 16 mg/dL (9-20); Calcium 9.3 mg/dL (8.4-10.2); Carbon Dioxide 26 mmol/L (22-30); Chloride 102 mmol/L (98-107); Glucose 173 mg/dL (74-99); Non-African American GFR(CKD) >90 (>60 ml/min/1.73 sqM); Potassium 3.8 mmol/L (3.5-5.1); Sodium 136 mmol/L (137-145); Total Bilirubin 0.9 mg/dL (0.2-1.3); Total Protein 6.8 g/dL (6.3-8.2)
--- NOTE | 2019-12-08 19:20 | XR ---
EXAMINATION TYPE: XR chest 2V DATE OF EXAM: 12/08/2019 CLINICAL HISTORY: Fever. Kidney stones, hydronephrosis, UTI. TECHNIQUE: Frontal and lateral views of the chest are obtained. COMPARISON: None FINDINGS: The cardiomediastinal silhouette is within normal limits for size. Pulmonary vasculature i s normal. There is no focal air space opacity, pleural effusion, or pneumothorax seen. Degenerative c hanges of the spine. IMPRESSION: No acute cardiopulmonary process.
[2019-12-08 19:43] LABS: Partial Thromboplastin Time 27.2 sec (22.0-30.0); Prothrombin Time 10.1 sec (9.0-12.0)
[2019-12-08 20:08] LABS: Appearance,Urine Cloudy (Clear); Bacteria,Urine Few /hpf; Bilirubin,Urine Negative (Negative); Blood,Urine Moderate (Negative); Budding Yeast,Urine Occasional /hpf; Color,Urine Yellow; Glucose,Urine (UA) Negative (Negative); Ketones,Urine Negative (Negative); Leukocyte Esterase,Urine Large (Negative); Mucus,Urine Rare /hpf; Nitrite,Urine Negative (Negative); Protein,Urine 1+ (Negative); RBC,Urine 98 /hpf (0-5); Specific Gravity,Urine 1.018 (1.001-1.035); Squamous Epithelial Cell,Urine <1 /hpf (0-4); WBC,Urine >182 /hpf (0-5)
[2019-12-08] MEDS ORDERED: NALOXONE 0.4 MG/ML 1 ML VIAL IV PRN (20:54)
[2019-12-08] MEDS ORDERED: AMPICILLIN-SULBACTAM 1.5 GM in SODIUM CHLORIDE 0.9% 50 ML IVPB STA (20:55)
[2019-12-08] MEDS ORDERED: GENTAMICIN PER PHARMACY MISCELLANE SCH (21:00)
[2019-12-08] MEDS ORDERED: GENTAMICIN 400 MG in SODIUM CHLORIDE 0.9% 100 ML IVPB ONE (21:00)
--- NOTE | 2019-12-08 22:12 | CT ---
EXAMINATION TYPE: CT abdomen pelvis wo con DATE OF EXAM: 12/08/2019 COMPARISON: None HISTORY: Right Hydronephrosis CT DLP: 910.6 mGycm Automated exposure control for dose reduction was used. Images were obtained from the diaphragm to the floor the pelvis with no contrast. Lung bases are clear. There is no pleural effusion. Heart size is normal. There is no pericardial eff usion. There is coronary artery calcification. Liver spleen pancreas stomach gallbladder appear normal. Bile ducts are not dilated. There is no adrenal mass. Kidneys have normal size. There is moderate right-sided hydronephrosis and perinephric edema. There is right-sided hydroureter. There is periureteral edema. There is 7 mm calcu kandis in the distal right ureter. There are bilateral calculi in the urinary bladder that measure up to 6 mm. There is prostatic calcification. There is right inguinal hernia that contains fat. There is r etained fecal material in the rectum that measures 8 cm. There is no retroperitoneal adenopathy. Ther e is 1 mm calculus lateral left kidney. There is no mesenteric edema. There is no ascites or free air. There is no evidence of a bowel obstru ction. Appendix is posterior and medial and appears normal. Lumbar vertebra have normal alignment. There is no compression fracture. Posterior elements are intac t. Bony pelvis is intact. Hip joints are intact. IMPRESSION: Obstructing calculus distal right ureter with moderate right-sided hydronephrosis and hydroureter. Multiple bladder calculi. Tiny calculus left kidney. Rectal fecal impaction. Mild sigmoid diverticulosis without diverticulitis.
[2019-12-09] MEDS: SODIUM CHLORIDE 0.9% 1,000 ML IV SCH ×3 (02:35→20:21)
[2019-12-09] MEDS: AMPICILLIN-SULBACTAM 1.5 GM in SODIUM CHLORIDE 0.9% 50 ML IVPB SCH ×3 (04:44→20:21)
[2019-12-09] MEDS ORDERED: KETOROLAC 15 MG/ML 1 ML VIAL IVP STA (11:06)
--- NOTE | 2019-12-09 12:06 | P.GSHP ---
History of Present Illness H&P Date: 12/09/19 Chief Complaint: Febrile urinary tract infection associated with right hydro nephrosis The patient is a 68-year-old male admitted through the emergency room last night for evaluation of a febrile urinary tract infection associated with right hydronephrosis. 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 He has been managed with self-catheterization every 3 hours. He has had interm ittent E. coli urinary tract infections. Cystoscopy was performed by Dr. Felder in 07/20 and several tiny bladder stones were present which were too small at that time for treatment. Over the last 3 or 4 weeks the patient has had intermittent right flank pain and a low-grade fever. He was recently treated with Bactrim and finished this several days ago. he underwent renal ultrasound and KUB on 12/07 and right hydronephrosis and a bladder calculus was identified. His called me in the afternoon and said that he had a temperature of 101.9. I recommended that he go to the emergency room where he was evaluated and noted to have a white blood count of 11,400. Chest x-ray was unremarkable. It was elected to admit the patient for IV antibiotic treatment and he was started on Unasyn and gentamicin. Computed tomography scan of the abdomen and pelvis without IV contrast was obtained for further evaluation of the right hydronephrosis and this identified a 7 mm distal right ureteral calculus with secondary hydronephrosis. - Constitutional Constitutional: Reports chills, Reports fever, Reports lethargy - Cardiovascular Cardiovascular: Denies chest pain, Denies edema, Denies shortness of breath - Respiratory Respiratory: Denies cough, Denies wheezing - Gastrointestinal Gastrointestinal: Reports abdominal pain (right lower quadrant) - Genitourinary (Male) Genitourinary: Reports flank pain (right), Reports urinary frequency, Denies hematuria Past Medical History Past Medical History: CVA/TIA (spinal cord with secondary paraplegia), Hypertension 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 Past Surgical History: No Surgical Hx Reported Past Anesthesia/Blood Transfusion Reactions: No Reported Reaction Past Psychological History: No Psychological Hx Reported Smoking Status: Never smoker Past Alcohol Use History: None Reported Past Drug Use History: None Reported Medications and Allergies Home Medications Medication Instructions Recorded Confirmed Type Losartan Potassium 100 mg PO DAILY 12/11/15 12/08/19 History ALPRAZolam [Xanax] 0.25 mg PO TID PRN 12/08/19 12/08/19 History Aspirin 325 mg PO DAILY 12/08/19 12/08/19 History Atorvastatin Calcium [Lipitor] 80 mg PO HS 12/08/19 12/08/19 History Gabapentin [Neurontin] 400 mg PO TID 12/08/19 12/08/19 History Multivitamins, Thera [Multivitamin 1 tab PO DAILY 12/08/19 12/08/19 History (formulary)] Naproxen 250 mg PO BID 12/08/19 12/08/19 History Pantoprazole Sodium 40 mg PO DAILY 12/08/19 12/08/19 History Tamsulosin HCl [Flomax] 0.4 mg PO DAILY 12/08/19 12/08/19 History amLODIPine [Norvasc] 5 mg PO BID 12/08/19 12/08/19 History Allergies Allergy/AdvReac Type Severity Reaction Status Date / Time morphine AdvReac Nausea & Verified 12/08/19 21:15 Vomiting Surgical - Exam Vital Signs Temp Pulse Resp BP Pulse Ox 101.9 F H 108 H 20 144/82 99 12/08/19 17:51 12/08/19 17:51 12/08/19 17:51 12/08/19 17:51 12/08/19 17:51 - General well developed, well nourished - ENT no hearing loss - Neck no masses, no lymphadectomy - Respiratory normal respiratory effort - Abdomen Abdomen: soft, tender (suprapubic region), no organomegaly Hernia: none - Genitourinary normal penis with no external lesions, testicles non-tender Results - Labs 12/08/19 18:24 12/08/19 18:24 Abnormal Lab Results - Last 24 Hours (Table) 12/08/19 12/08/19 12/08/19 Range/Units 18:24 18:24 18:24 WBC 11.4 H (3.8-10.6) k/uL Neutrophils # 9.2 H (1.3-7.7) k/uL Sodium 136 L (137-145) mmol/L Creatinine 0.52 L (0.66-1.25) mg/dL Glucose 173 H (74-99) mg/dL Alkaline Phosphatase 141 H (38-126) U/L Urine Protein 1+ H (Negative) Urine Blood Moderate H (Negative) Ur Leukocyte Esterase Large H (Negative) Urine RBC 98 H (0-5) /hpf Urine WBC >182 H (0-5) /hpf Urine WBC Clumps Few H (None) /hpf Urine Bacteria Few H (None) /hpf Urine Mucus Rare H (None) /hpf Urine Yeast (Budding) Occasional H (None) /hpf Microbiology - Last 24 Hours (Table) 12/08/19 18:24 Urine Culture - Preliminary Urine,Voided Diabetes panel 12/08/19 Range/Units 18:24 Sodium 136 L (137-145) mmol/L Potassium 3.8 (3.5-5.1) mmol/L Chloride 102 (98-107) mmol/L Carbon Dioxide 26 (22-30) mmol/L BUN 16 (9-20) mg/dL Creatinine 0.52 L (0.66-1.25) mg/dL Glucose 173 H (74-99) mg/dL Calcium 9.3 (8.4-10.2) mg/dL AST 26 (17-59) U/L ALT 35 (4-49) U/L Alkaline Phosphatase 141 H (38-126) U/L Total Protein 6.8 (6.3-8.2) g/dL Albumin 3.9 (3.5-5.0) g/dL Calcium panel 12/08/19 Range/Units 18:24 Calcium 9.3 (8.4-10.2) mg/dL Albumin 3.9 (3.5-5.0) g/dL Pituitary panel 12/08/19 Range/Units 18:24 Sodium 136 L (137-145) mmol/L Potassium 3.8 (3.5-5.1) mmol/L Chloride 102 (98-107) mmol/L Carbon Dioxide 26 (22-30) mmol/L BUN 16 (9-20) mg/dL Creatinine 0.52 L (0.66-1.25) mg/dL Glucose 173 H (74-99) mg/dL Calcium 9.3 (8.4-10.2) mg/dL Adrenal panel 12/08/19 Range/Units 18:24 Sodium 136 L (137-145) mmol/L Potassium 3.8 (3.5-5.1) mmol/L Chloride 102 (98-107) mmol/L Carbon Dioxide 26 (22-30) mmol/L BUN 16 (9-20) mg/dL Creatinine 0.52 L (0.66-1.25) mg/dL Glucose 173 H (74-99) mg/dL Calcium 9.3 (8.4-10.2) mg/dL Total Bilirubin 0.9 (0.2-1.3) mg/dL AST 26 (17-59) U/L ALT 35 (4-49) U/L Alkaline Phosphatase 141 H (38-126) U/L Total Protein 6.8 (6.3-8.2) g/dL Albumin 3.9 (3.5-5.0) g/dL Assessment and Plan Assessment: The patient has a febrile urinary tract infection with possible early sepsis which is complicated by right hydronephrosis from a distal right ureteral calculus. The patient has been started on Unasyn and gentamicin pending results of his urine culture. Cystoscopy with placement of a right double-J catheter will be performed under anesthesia later in the day to ensure good drainage from the right kidney which will allow better antibiotic penetration to the kidney. Elective right ureteroscopy with lithotripsy and cystoscopy lithotripsy will be set up later in the month. (1) Urinary tract infection Current Visit: Yes Status: Acute Code(s): N39.0 - URINARY TRACT INFECTION, SITE NOT SPECIFIED SNOMED Code(s): 03860169
[2019-12-09] MEDS ORDERED: IV FLUID CONTINUATION 425 ML IV ONE (15:57)
[2019-12-09] MEDS ORDERED: DEXAMETHASONE SOD PHOSPHATE 10 MG/ML 1 ML VIAL IV ONE (16:09)
[2019-12-09] MEDS ORDERED: ONDANSETRON 4 MG/2 ML VIAL IVP ONE (16:09)
[2019-12-09] MEDS ORDERED: ONDANSETRON 4 MG/2 ML VIAL ONE (16:12)
[2019-12-09] MEDS ORDERED: fentaNYL (PF) 50 MCG/ML 2 ML AMP ONE (16:49)
[2019-12-09] MEDS ORDERED: PROPOFOL 10 MG/ML 20 ML VIAL IV ONE (16:49)
[2019-12-09] MEDS ORDERED: LIDOCAINE 1% INJ 10MG/ML (20 ML MDV) ONE (16:49)
[2019-12-09] MEDS ORDERED: MIDAZOLAM 2 MG/2 ML VIAL ONE (16:49)
--- NOTE | 2019-12-09 17:34 | P.OP ---
Date of Procedure: 12/09/19 Preoperative Diagnosis: Febrile urinary tract infection complicated by right hydronephrosis from distal right ureteral calculus Postoperative Diagnosis: Febrile urinary tract infection complicated by right hydronephrosis from distal right ureteral calculus Procedure(s) Performed: Cystoscopy with placement of right double-J catheter and removal of bladder calculi Anesthesia: BESS Surgeon: Shekhar Linn Estimated Blood Loss (ml): 0 Pathology: other (Bladder calculi) Condition: stable Disposition: PACU Indications for Procedure: The patient is a 68-year-old male with a neurogenic bladder who has performed intermittent catheterization and has had recurrent urinary tract infections and more recently right flank pain. Renal ultrasound performed yesterday showed right hydronephrosis and later in the day the patient was noted have a temperature of 101.9 associated with urinary tract infection. Computed tomography scan has identified a 7 mm distal right ureteral calculus which is the source of the hydronephrosis. Placement of a right double-J catheter is planned to ensure adequate drainage of the kidney for antibiotic treatment. Description of Procedure: The patient was taken the operative suite where adequate general anesthesia via LMA was instituted. He was placed in the dorsal lithotomy position with his legs suspended from padded Po stirrups. Pneumatic compression stockings were applied to the lower legs. The genitalia was prepped with Betadine solution and draped in sterile fashion. The penile and prostatic urethra traversed under direct vision using the 22-Gabonese cystoscope sheath and 30 lens. There is no evidence of inflammatory lesion tumor or stricture noted in the anterior urethra prostatic urethra showed evidence of moderate lateral lobe enlargement. The bladder was examined. On the floor of the bladder were 3 calculi each measuring between 4 and 5 mm in diameter. The calculi were irrigated out of the bladder through the cystoscope. The remainder of the bladder was unremarkable. Both ureteral orifices were of normal location and configuration. A straight 0.35 Glidewire was advanced through the right ureteral orifice and under fluoroscopic guidance the Glidewire was positioned so that it coiled in the renal pelvis. A 26 cm x 6-Gabonese double-J catheter was then advanced over the Glidewire and positioned fluoroscopically so that the proximal end coiled in the region of the renal pelvis and the distal end coiled in the bladder bladder was drained and the cystoscope was withdrawn The patient tolerated the procedure well and left the operative room awake and in satisfactory condition. There was no blood loss. The patient will be treated with antibiotics and elective right ureteroscopy with lithotripsy will be set up later in the month.
[2019-12-09 19:33] VITALS: RESP 16
[2019-12-09] MEDS ORDERED: ALPRAZolam 0.25 MG TAB PO PRN (19:34)
[2019-12-09] MEDS ORDERED: NAPROXEN 250 MG TAB PO PRN (19:38)
[2019-12-09] MEDS: amLODIPine 5 MG TAB PO SCH (20:21)
[2019-12-09] MEDS ORDERED: GENTAMICIN 400 MG in SODIUM CHLORIDE 0.9% 100 ML IVPB SCH (21:00)
[2019-12-09] MEDS ORDERED: ATORVASTATIN 80 MG TAB PO SCH (21:00)
[2019-12-09] MEDS: GABAPENTIN 400 MG CAP PO SCH (21:35)
[2019-12-10] MEDS: SODIUM CHLORIDE 0.9% 1,000 ML IV SCH (00:46)
[2019-12-10 04:23] VITALS: BP 113/72; PULSE 61; TEMP 97.9
[2019-12-10] MEDS: AMPICILLIN-SULBACTAM 1.5 GM in SODIUM CHLORIDE 0.9% 50 ML IVPB SCH (05:06)
--- NOTE | 2019-12-10 06:33 | FL ---
EXAMINATION TYPE: FL guidance operating room DATE OF EXAM: 12/09/2019 CLINICAL HISTORY: Kidney stones TECHNIQUE: Fluoroscopy. COMPARISON: CT one day earlier. FINDINGS: Fluoroscopic guidance was provided during cystoscopy with catheter insertion and bladder s tone removal procedure performed by Dr. Linn. A total of 8 seconds of fluoroscopic time was utilize d during the procedure and single spot fluoroscopic intraoperative image is acquired. Single image acquired shows proximal portion of the double-J ureter stent in the right kidney. IMPRESSION: As Above.
[2019-12-10] MEDS ORDERED: PANTOPRAZOLE 40 MG TABLET PO SCH (07:30)
--- NOTE | 2019-12-10 07:46 | P.DS ---
Providers Date of admission: 12/09/19 09:02 Expected date of discharge: 12/10/19 Attending physician: Shekhar Linn Primary care physician: Rip Baez - Discharge Diagnosis(es) (1) Urinary tract infection The patient was admitted for treatment of a febrile urinary tract infection associated with right hydronephrosis from a distal right ureteral calculus. He was started on Unasyn and gentamicin and had no fever after he left the emergency room. A right double-J catheter was placed on 12/08 and the patient's previous right flank pain resolved. Blood cultures showed no growth. Urine culture was pending at the time of discharge. The patient was discharged on 12/09. He was given a dose of Rocephin and will be contacted later in the day or in the morning once his urine culture has been finalized. He will be treated with antibiotics for an additional 10 days. He will follow-up with Dr. Felder in 1-2 weeks. Current Visit: Yes Status: Acute Patient Condition at Discharge: Good Plan - Discharge Summary Discharge Rx Participant: No New Discharge Prescriptions: No Action Losartan Potassium 100 mg PO DAILY Naproxen 250 mg PO BID Multivitamins, Thera [Multivitamin (formulary)] 1 tab PO DAILY Aspirin 325 mg PO DAILY ALPRAZolam [Xanax] 0.25 mg PO TID PRN PRN Reason: Anxiety Tamsulosin HCl [Flomax] 0.4 mg PO DAILY Pantoprazole Sodium 40 mg PO DAILY Gabapentin [Neurontin] 400 mg PO TID amLODIPine [Norvasc] 5 mg PO BID Atorvastatin Calcium [Lipitor] 80 mg PO HS Discharge Medication List Losartan Potassium 100 mg PO DAILY 12/11/15 [History] ALPRAZolam [Xanax] 0.25 mg PO TID PRN 12/08/19 [History] Aspirin 325 mg PO DAILY 12/08/19 [History] Atorvastatin Calcium [Lipitor] 80 mg PO HS 12/08/19 [History] Gabapentin [Neurontin] 400 mg PO TID 12/08/19 [History] Multivitamins, Thera [Multivitamin (formulary)] 1 tab PO DAILY 12/08/19 [History] Naproxen 250 mg PO BID 12/08/19 [History] Pantoprazole Sodium 40 mg PO DAILY 12/08/19 [History] Tamsulosin HCl [Flomax] 0.4 mg PO DAILY 12/08/19 [History] amLODIPine [Norvasc] 5 mg PO BID 12/08/19 [History] Follow up Appointment(s)/Referral(s): Rip Baez DO [Primary Care Provider] - As Needed Johnny Felder MD [STAFF PHYSICIAN] - 10 Days
[2019-12-10] MEDS ORDERED: TAMSULOSIN 0.4 MG CAP.ER.24H PO SCH (09:00)
[2019-12-10] MEDS ORDERED: ASPIRIN 325 MG TAB PO SCH (09:00)
[2019-12-10] MEDS ORDERED: LOSARTAN 50 MG TAB PO SCH (09:00)
[2019-12-10] MEDS ORDERED: MULTIVITAMINS, THERA 1 EACH TAB PO SCH (09:00)
[2019-12-10] MEDS ORDERED: INFLUENZA VACCINE (6 MOS+) 60 MCG/0.5 ML SYRINGE IM ONE (09:28)
[2019-12-10] MEDS: amLODIPine 5 MG TAB PO SCH (09:34)
[2019-12-10] MEDS: GABAPENTIN 400 MG CAP PO SCH (09:34)
[2019-12-10 10:14] LABS: African American GFR (CKD) 129.1 (60.0-200.0); Anion Gap 8.3 mmol/L (4.00-12.00); Calcium 8.8 mg/dL (8.7-10.3); Carbon Dioxide 24.7 mmol/L (21.6-31.8); Non-African American GFR(CKD) 111.3 (60.0-200.0); Potassium 4.5 mmol/L (3.5-5.5)
== END 2019-12-10 13:50 | disposition home or self-care (01) | DRG 690 ==
LOC: EC 17:27 → 6NMEDSUR 20:55 → OBSVTOIN 12-09 09:02
PROVIDERS: ADMIT Urology; ATTEND Urology
PROC: 0T9B8ZZ Drainage of Bladder, Via Natural or Artificial Opening Endoscopic (ICD-10-PCS; 2019-12-09)
PROC: 0TCB8ZZ Extirpation of Matter from Bladder, Via Natural or Artificial Opening Endoscopic (ICD-10-PCS; principal; 2019-12-09 17:00)
DX: N13.6 Pyonephrosis (principal); G82.20 Paraplegia, unspecified; I10 Essential (primary) hypertension; I69.398 Other sequelae of cerebral infarction; N21.0 Calculus in bladder; N31.9 Neuromuscular dysfunction of bladder, unspecified; Z79.82 Long term (current) use of aspirin; Z79.899 Other long term (current) drug therapy; Z99.3 Dependence on wheelchair; Z87.440 Personal history of urinary (tract) infections; Z87.442 Personal history of urinary calculi; Z88.5 Allergy status to narcotic agent
CPT/HCPCS: 36415; 71046; 74176; 80048; 80053; 80170; 81001; 82365; 83605; 85025; 85610; 85730; 87040; 87077; 87086; 87186; 90686; 99285

== ENCOUNTER → 2019-12-08 | Outpatient (CLI) | payer MEDICARE, BC ==
--- NOTE | 2019-12-08 13:03 | US ---
EXAMINATION TYPE: US kidneys/renal and bladder DATE OF EXAM: 12/08/2019 COMPARISON: NONE CLINICAL HISTORY: R10.9 Flank pain, right side. h/o renal and bladder stones EXAM MEASUREMENTS: Right Kidney: 13.1 x 5.4 x 6.5 cm Left Kidney: 13.0 x 4.3 x 6.6 cm Right Kidney: moderate hydronephrosis Left Kidney: No hydronephrosis or masses seen Bladder: 1.3cm bladder stone No nephrolithiasis is seen. No masses are identified. The urinary bladder is anechoic. Bilateral u reteral jets are seen. IMPRESSION: Moderate right-sided hydronephrosis noted.
--- NOTE | 2019-12-08 13:48 | XR ---
EXAMINATION TYPE: XR KUB DATE OF EXAM: 12/08/2019 COMPARISON: NONE HISTORY: Pain TECHNIQUE: Single supine KUB image of the abdomen is obtained FINDINGS: Small bowel demonstrates no evidence for dilatation or air fluid levels. Gas and fecal material is seen in non-distended colon. No convincing evidence for pneumoperitoneum. No unusual calcifications. The lung bases are clear. The osseous structures are intact. IMPRESSION: 1. Overall nonobstructive bowel gas pattern.
== END | disposition home or self-care (01) ==
LOC: RADUSWWP 12:06
PROVIDERS: ATTEND Urology
DX: N13.30 Unspecified hydronephrosis (principal); R10.9 Unspecified abdominal pain
CPT/HCPCS: 74018; 76770

== ENCOUNTER → 2019-12-31 | Outpatient (CLI) | payer MEDICARE ==
[2019-12-31 11:35] LABS: Basophils % (A) 0 %; Eosinophils # (A) 0.3 k/uL (0-0.7); Eosinophils % (A) 4 %; HCT 43.9 % (39.0-53.0); HGB 13.8 gm/dL (13.0-17.5); Lymphocytes # (A) 1.5 k/uL (1.0-4.8); Lymphocytes % (A) 20 %; MCHC 31.5 g/dL (31.0-37.0); MCV 95.2 fL (80.0-100.0); Mean Platelet Volume 6.8; Monocytes # (A) 0.5 k/uL (0-1.0); Monocytes % (A) 7 %; Neutrophils # (A) 5.1 k/uL (1.3-7.7); Neutrophils % (A) 67 %; Platelet Count 293 k/uL (150-450); RBC 4.61 m/uL (4.30-5.90); RDW 13.4 % (11.5-15.5); WBC 7.6 k/uL (3.8-10.6)
[2019-12-31 15:03] LABS: African American GFR (CKD) 128.1 (60.0-200.0); Calcium 9.4 mg/dL (8.7-10.3); Non-African American GFR(CKD) 110.6 (60.0-200.0)
== END | disposition home or self-care (01) ==
LOC: LABWHC1 10:32
PROVIDERS: ATTEND Urology
DX: Z01.818 Encounter for other preprocedural examination (principal); N20.1 Calculus of ureter; R31.29 Other microscopic hematuria
CPT/HCPCS: 36415; 80048; 85025

== ENCOUNTER 2020-01-05 10:50 | Observation (INO) | payer MEDICARE ==
[2020-01-05] MEDS ORDERED: GENTAMICIN PER PHARMACY MISCELLANE SCH (13:15)
[2020-01-05] MEDS: GENTAMICIN 400 MG in SODIUM CHLORIDE 0.9% 100 ML IVPB SCH (14:15)
[2020-01-05] MEDS ORDERED: GENTAMICIN IVPB SCH (16:00)
[2020-01-05] MEDS ORDERED: SODIUM CHLORIDE 0.9% IVPB SCH (16:00)
[2020-01-05] MEDS: ALPRAZolam 0.25 MG TAB PO PRN (21:28)
[2020-01-05] MEDS: GABAPENTIN 400 MG CAP PO SCH (21:28)
[2020-01-05] MEDS: amLODIPine 5 MG TAB PO SCH (21:28)
[2020-01-05] MEDS: ATORVASTATIN 80 MG TAB PO SCH (21:28)
[2020-01-06] MEDS: amLODIPine 5 MG TAB PO SCH ×2 (07:42→21:05)
[2020-01-06] MEDS: LOSARTAN 50 MG TAB PO SCH (07:42)
[2020-01-06] MEDS: GABAPENTIN 400 MG CAP PO SCH ×3 (07:42→21:05)
[2020-01-06] MEDS: PANTOPRAZOLE 40 MG TABLET PO SCH (07:42)
[2020-01-06 10:50] LABS: African American GFR (CKD) 118.9 (60.0-200.0); Non-African American GFR(CKD) 102.6 (60.0-200.0)
[2020-01-06] MEDS: GENTAMICIN 400 MG in SODIUM CHLORIDE 0.9% 100 ML IVPB SCH (13:29)
--- NOTE | 2020-01-06 14:49 | P.GSHP ---
History of Present Illness H&P Date: 01/06/20 Chief Complaint: UTI Mr Samaniego is 69 yo male with hx of right sided ureteral stone S/P right ureteral stent placement on 12/09. 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 he is also been complaining of cloudy, a foul smelling urine, He also has mild flank pain. Denies any fever/chills. Discussed with him given his VRE urine culture, I recommend he is gets preadmitted for IV abx prior to his surgery. Discussed with him given his hx of CIC, he is at increased risk of UTI. Discussed with him he is at increased risk of complication secondary to that - Constitutional Constitutional: Denies chills, Denies fever - EENT Ears, nose, mouth and throat: Denies headache, Denies sore throat - Cardiovascular Cardiovascular: Denies chest pain, Denies shortness of breath - Respiratory Respiratory: Denies cough, Denies 7 - Gastrointestinal Gastrointestinal: Denies abdominal pain, Denies diarrhea, Denies nausea, Denies vomiting - Genitourinary (Female) Genitourinary: Reports flank pain, Denies dysuria - Neurological Neurological: Denies numbness, Denies weakness 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 Date of last positivie culture/infection: 12/31/19 MDRO Source:: urine Past Surgical History: No Surgical Hx Reported Additional Past Surgical History / Comment(s): right stent placed by urology two weeks ago Past Anesthesia/Blood Transfusion Reactions: No Reported Reaction Past Psychological History: No Psychological Hx Reported Smoking Status: Never smoker Past Alcohol Use History: None Reported Past Drug Use History: None Reported - Past Family History Mother Family Medical History: Congestive Heart Failure (CHF) Father Family Medical History: Diabetes Mellitus Medications and Allergies Home Medications Medication Instructions Recorded Confirmed Type Losartan Potassium 100 mg PO DAILY 12/11/15 01/05/20 History ALPRAZolam [Xanax] 0.25 mg PO TID PRN 12/08/19 01/05/20 History Atorvastatin Calcium [Lipitor] 80 mg PO HS 12/08/19 01/05/20 History Gabapentin [Neurontin] 400 mg PO TID 12/08/19 01/05/20 History Pantoprazole Sodium 40 mg PO DAILY 12/08/19 01/05/20 History Tamsulosin HCl [Flomax] 0.4 mg PO DAILY 12/08/19 01/05/20 History amLODIPine [Norvasc] 5 mg PO BID 12/08/19 01/05/20 History Clotrimazole/Betameth Cream 1 applic TOPICAL DAILY PRN 01/05/20 01/05/20 History [Lotrisone] HYDROcodone/APAP 5-325MG [[place] 1 - 2 tab PO DAILY PRN 01/05/20 01/05/20 History 5-325] Tamsulosin [Flomax] 0.4 mg PO DAILY 01/05/20 01/05/20 History Allergies Allergy/AdvReac Type Severity Reaction Status Date / Time morphine AdvReac Nausea & Verified 01/05/20 13:04 Vomiting Surgical - Exam Vital Signs Temp Pulse Resp BP Pulse Ox 98.5 F 91 18 135/86 97 01/05/20 12:16 01/05/20 12:16 01/05/20 12:16 01/05/20 12:16 01/05/20 12:16 - General well developed, well nourished, no distress, no pain - Eyes PERRL, normal ocular movement - ENT normal nares, normal mucosa, no hearing loss - Respiratory normal expansion, normal respiratory effort - Abdomen Abdomen: soft, non tender - Psychiatric oriented to time, oriented to person, oriented to place Results - Labs 01/06/20 07:02 Diabetes panel 01/06/20 Range/Units 07:02 Creatinine 0.6 (0.6-1.5) mg/dL Pituitary panel 01/06/20 Range/Units 07:02 Creatinine 0.6 (0.6-1.5) mg/dL Adrenal panel 01/06/20 Range/Units 07:02 Creatinine 0.6 (0.6-1.5) mg/dL Assessment and Plan Assessment: 69 yo male with hx of right ureteral stone, preop culture showed VRE. Admitted for IV abx prior to his surgery -Continue Gentamiacin - NPO past MN -OR for right sided ureteroscopy with holmium laser
[2020-01-06] MEDS: traMADol 50 MG TAB PO PRN ×2 (15:58→21:08)
[2020-01-06] MEDS: ATORVASTATIN 80 MG TAB PO SCH (21:05)
[2020-01-06] MEDS: ALPRAZolam 0.25 MG TAB PO PRN (21:53)
[2020-01-07] MEDS: PANTOPRAZOLE 40 MG TABLET PO SCH (07:44)
[2020-01-07] MEDS: GABAPENTIN 400 MG CAP PO SCH ×3 (07:44→23:49)
[2020-01-07] MEDS: LOSARTAN 50 MG TAB PO SCH (07:44)
[2020-01-07] MEDS: amLODIPine 5 MG TAB PO SCH ×2 (07:45→23:49)
[2020-01-07] MEDS: traMADol 50 MG TAB PO PRN ×2 (07:45→23:50)
[2020-01-07 09:21] LABS: African American GFR (CKD) 118.9 (60.0-200.0); Non-African American GFR(CKD) 102.6 (60.0-200.0)
[2020-01-07] MEDS: GENTAMICIN 400 MG in SODIUM CHLORIDE 0.9% 100 ML IVPB SCH (14:59)
[2020-01-07] MEDS ORDERED: IV FLUID CONTINUATION 1,000 ML IV ONE (19:05)
--- NOTE | 2020-01-07 19:17 | P.PN ---
Subjective Progress Note Date: 01/07/20 No acute overnight event, pain is controlled. Objective - Vital Signs Vital signs: Vital Signs Temp 97.9 F 01/07/20 13:00 Pulse 78 01/07/20 19:06 Resp 16 01/07/20 19:06 BP 143/82 01/07/20 19:06 Pulse Ox 97 01/07/20 19:06 Intake & Output 01/07/20 01/07/20 01/08/20 06:59 18:59 06:59 Intake Total 590 0 Output Total 1675 Balance 590 -1675 Intake: Oral 590 0 Output: Urine 1675 Other: Voiding Method Self-Catheterization Self-Catheterization # Voids 1 - Constitutional General appearance: Present: no acute distress - Psychiatric Psychiatric: Present: A&O x's 3 - Labs CBC & Chem 7: 01/07/20 05:49
[2020-01-07] MEDS ORDERED: ONDANSETRON 4 MG/2 ML VIAL ONE (19:44)
[2020-01-07] MEDS ORDERED: LIDOCAINE 1% INJ 10MG/ML (20 ML MDV) ONE (19:44)
[2020-01-07] MEDS ORDERED: DEXAMETHASONE SOD PHOSPHATE 10 MG/ML 1 ML VIAL ONE (19:44)
[2020-01-07] MEDS ORDERED: PROPOFOL 10 MG/ML 20 ML VIAL IV ONE (19:44)
[2020-01-07] MEDS ORDERED: fentaNYL (PF) 50 MCG/ML 2 ML AMP ONE (19:44)
--- NOTE | 2020-01-07 20:51 | P.OP ---
Date of Procedure: 01/07/20 Preoperative Diagnosis: Right ureteral calculi Postoperative Diagnosis: Same Procedure(s) Performed: Cystoscopy, right ureteroscopy, holmium laser lithotripsy, stone basketing and stent exchange Implants: 6-[place] by 26 cm stent on a string and taped to the catheter Anesthesia: BESS Surgeon: Johnny Felder Estimated Blood Loss (ml): 5 Pathology: other (Right ureteral calculi) Condition: stable Disposition: PACU Indications for Procedure: Mr Samaniego is 69 yo male with hx of right sided ureteral stone S/P right ureteral stent placement on 12/09. His preoperative urine culture prior to his surgery showed VRE. Given his VRE he was preadmitted for IV abx. He presents today for right-sided ureteroscopy. Discussed with him the risk which includes but not limited to bleeding, infection, injury to the ureter. Discussed with him he is at increased risk of complication secondary to his VRE infection Operative Findings: Right distal stone Description of Procedure: Patient was brought to the operating room, general anesthesia was induced. He was prepped and draped so fashion a placement dorsal lithotomy position. Cystoscopy fitted with 21-[place] sheath was inserted per urethra. Cystoscopy was performed showed no abnormality within the bladder. She'll then carried to the right ureteral stent which was grasped using a stent grasper and pulled to the meatus. A sensor wire was advanced through the stent the stent was removed wire in place. Next a semirigid ureteroscope was advanced urethra and up the right ureteral orifice. Stone was encountered in distal ureter. Using the holmium laser stone was fragment and smaller fragments. Sizable fragments were removed using a stone basket. Repeat ureteroscopy demonstrated no additional stones or injury to the ureter. The ureteroscope was advanced all the way up to the renal pelvis . At this time the ureteroscope was withdrawn and the wire was advanced. Next a 6-[place] Island[place] by 26 cm stent was passed over the wire. The proximal curl was visualized on fluoroscopy and distal curl was visualized using the cystoscope. The stent was left on a string. A 16-[place] catheter was placed and the stent was taped to the catheter. Bladder was emptied and the case. Patient tolerated the procedure well was taken PACU in stable condition
[2020-01-07] MEDS ORDERED: SODIUM CHLORIDE 0.9% 1,000 ML IV ONE ×2 (21:15)
[2020-01-07] MEDS ORDERED: HYDROmorphone 0.5 MG/0.5 ML SYRINGE IVP ONE (21:15)
[2020-01-07] MEDS: ATORVASTATIN 80 MG TAB PO SCH (23:49)
[2020-01-08 04:52] VITALS: RESP 16; TEMP 98.3
[2020-01-08] MEDS: GABAPENTIN 400 MG CAP PO SCH (08:27)
[2020-01-08] MEDS: PANTOPRAZOLE 40 MG TABLET PO SCH (08:27)
[2020-01-08] MEDS: LOSARTAN 50 MG TAB PO SCH (08:27)
[2020-01-08] MEDS: amLODIPine 5 MG TAB PO SCH ×2 (08:27→08:29)
[2020-01-08 08:51] VITALS: BP 110/69; PULSE 71
[2020-01-08 09:28] LABS: African American GFR (CKD) 118.9 (60.0-200.0); Non-African American GFR(CKD) 102.6 (60.0-200.0)
--- NOTE | 2020-01-08 09:52 | P.DS ---
Providers Date of admission: 01/05/20 11:50 Expected date of discharge: 01/08/20 Attending physician: Johnny Felder MD Primary care physician: [facility] Course: Patient has a history of urolithiasis and recently was admitted with right pyelonephritis complicated by a distal right ureteral calculus with obstruction which was treated with placement of a double-J catheter and antibiotics. He was scheduled to undergo elective right ureteroscopy with lithotripsy on 01/06. Preop urine culture grew Enterococcus faecalis which was resistant to multiple antibiotics. He was admitted 2 days prior to the planned surgery for the purpose of IV gentamicin therapy. He remained afebrile during his hospital stay. He underwent elective right ureteroscopy with lithotripsy on the evening of 01/06. He remained afebrile following the surgery and was comfortable. He was discharged on 01/07 with a Neves catheter in place. He will be treated with Macrobid 100 mg twice a day until he is seen back in follow-up on 01/12. Procedures: Right ureteroscopy with lithotripsy 01/07/2020 Patient Condition at Discharge: Good Plan - Discharge Summary Discharge Rx Participant: No New Discharge Prescriptions: New Nitrofurantoin Monohyd/M-Cryst [Macrobid] 100 mg PO Q12HR #14 cap No Action Losartan Potassium 100 mg PO DAILY ALPRAZolam [Xanax] 0.25 mg PO TID PRN PRN Reason: Anxiety Tamsulosin HCl [Flomax] 0.4 mg PO DAILY Pantoprazole Sodium 40 mg PO DAILY Gabapentin [Neurontin] 400 mg PO TID amLODIPine [Norvasc] 5 mg PO BID Atorvastatin Calcium [Lipitor] 80 mg PO HS Tamsulosin [Flomax] 0.4 mg PO DAILY HYDROcodone/APAP 5-325MG [[place] 5-325] 1 - 2 tab PO DAILY PRN PRN Reason: Pain Clotrimazole/Betameth Cream [Lotrisone] 1 applic TOPICAL DAILY PRN PRN Reason: Itching Discharge Medication List Losartan Potassium 100 mg PO DAILY 12/11/15 [History] ALPRAZolam [Xanax] 0.25 mg PO TID PRN 12/08/19 [History] Atorvastatin Calcium [Lipitor] 80 mg PO HS 12/08/19 [History] Gabapentin [Neurontin] 400 mg PO TID 12/08/19 [History] Pantoprazole Sodium 40 mg PO DAILY 12/08/19 [History] Tamsulosin HCl [Flomax] 0.4 mg PO DAILY 12/08/19 [History] amLODIPine [Norvasc] 5 mg PO BID 12/08/19 [History] Clotrimazole/Betameth Cream [Lotrisone] 1 applic TOPICAL DAILY PRN 01/05/20 [History] HYDROcodone/APAP 5-325MG [[place] 5-325] 1 - 2 tab PO DAILY PRN 01/05/20 [History] Tamsulosin [Flomax] 0.4 mg PO DAILY 01/05/20 [History] Nitrofurantoin Monohyd/M-Cryst [Macrobid] 100 mg PO Q12HR #14 cap 01/08/20 [Rx] Follow up Appointment(s)/Referral(s): Johnny Felder MD [STAFF PHYSICIAN] - 01/13/20 Discharge Disposition: HOME SELF-CARE
--- NOTE | 2020-01-08 15:16 | FL ---
EXAMINATION TYPE: FL guidance operating room DATE OF EXAM: 01/07/2020 CLINICAL HISTORY: Cystoscopy and right ureteral stent placement TECHNIQUE: Fluoroscopy. COMPARISON: None. FINDINGS: Fluoroscopic guidance was provided during procedure for performing physician. A total of 4 seconds of fluoroscopic time was utilized during the procedure and 2 spot images was acquired. IMPRESSION: As Above.
== END 2020-01-08 11:10 | disposition home or self-care (01) ==
LOC: 6NMEDSUR 11:50 → INTOOBSV 11:50 → UNDODISIN 01-08 11:10
PROVIDERS: ADMIT Urology; ATTEND Urology
DX: N20.1 Calculus of ureter (principal); Z16.21 Resistance to vancomycin; R82.79 Other abnormal findings on microbiological examination of urine; I10 Essential (primary) hypertension; G95.89 Other specified diseases of spinal cord; G82.22 Paraplegia, incomplete; E78.5 Hyperlipidemia, unspecified; K21.9 Gastro-esophageal reflux disease without esophagitis; Z96.0 Presence of urogenital implants; Z86.73 Personal history of transient ischemic attack (TIA), and cerebral infarction without residual deficits; Z86.19 Personal history of other infectious and parasitic diseases; Z79.899 Other long term (current) drug therapy; Z88.5 Allergy status to narcotic agent; Z82.49 Family history of ischemic heart disease and other diseases of the circulatory system; Z83.3 Family history of diabetes mellitus
CPT/HCPCS: 82565 ×3; 80170; 82365; 52356; G0379; G0378 ×4; C2625; C1758; C1769; J1580 ×3; J1100; J2405; J2001; J3010; J2704; J1170

== ENCOUNTER → 2020-04-07 | Outpatient (CLI) | payer MEDICARE ==
--- NOTE | 2020-04-07 07:46 | CT ---
EXAMINATION TYPE: CT abdomen pelvis wo con DATE OF EXAM: 04/07/2020 HISTORY: Calculus of Kidney, history of recent renal stent removal. CT DLP: 949.7 mGycm. Automated Exposure Control for Dose Reduction was Utilized. TECHNIQUE: CT scan of the abdomen and pelvis is performed without oral or IV contrast. COMPARISON: CT abdomen and pelvis December 08, 2019 FINDINGS: Within the limitations of a non-contrast study, the following observations are made. LUNG BASES: Mild anterior right basilar linear scarring redemonstrated. Moderate three-vessel coronar y artery calcification. LIVER/GB: No significant abnormality is appreciated. PANCREAS: Moderate generalized fat replaced atrophy. SPLEEN: No significant abnormality is seen. ADRENALS: No significant abnormality is seen. KIDNEYS: Several small dependent calculi in the bladder, roughly 5-6 calculi all measuring 5 mm or sm aller in size. No renal calculi or hydronephrosis seen bilaterally. BOWEL: Some diverticula in the sigmoid colon. No CT evidence for acute diverticulitis. No suspicious small or large bowel dilatation. Persistent moderate rectal colonic fecal prominence though is left p rominent than prior study GENITAL ORGANS: Enlarged prostate consistent with BPH. Central calcifications.. LYMPH NODES: No greater than 1cm abdominal or pelvic lymph nodes are appreciated. OSSEOUS STRUCTURES: Spine is straightened. OTHER: Small fat-containing right inguinal hernia. Mild to moderate calcified plaque of the aorta ext ends into branch vessels IMPRESSION: Roughly 5-6 small intraluminal calculi and bladder. No renal calculi or hydronephrosis cu rrently. Overall nonobstructive bowel gas pattern. Moderate rectal fecal stasis remains present sligh tly improved from prior.
== END | disposition home or self-care (01) ==
LOC: RADCTMAIN 06:34
PROVIDERS: ATTEND Urology
DX: N20.1 Calculus of ureter (principal); K59.89 Other specified functional intestinal disorders
CPT/HCPCS: 74176

== ENCOUNTER 2020-12-03 13:49 | Inpatient (IN) | payer MEDICARE ==
[2020-12-03] MEDS ORDERED: ACETAMINOPHEN TAB 500 MG TAB PO STA (14:39)
[2020-12-03] MEDS ORDERED: IBUPROFEN 600 MG TAB PO STA (14:39)
[2020-12-03] MEDS: SODIUM CHLORIDE 0.9% 500 ML 500 ML IV SCH ×2 (15:28→17:45)
[2020-12-03 15:44] LABS: Chloride 104 mmol/L (98-107)
[2020-12-03 15:47] LABS: ALT 41 U/L (4-49); AST 33 U/L (17-59); African American GFR (CKD) >90 (>60 ml/min/1.73 sqM); Albumin 4.4 g/dL (3.5-5.0); Alkaline Phosphatase 200 U/L (38-126); Anion Gap 12 mmol/L; Blood Urea Nitrogen 19 mg/dL (9-20); Calcium 9.7 mg/dL (8.4-10.2); Carbon Dioxide 23 mmol/L (22-30); Glucose 139 mg/dL (74-99); Non-African American GFR(CKD) >90 (>60 ml/min/1.73 sqM); Potassium 3.8 mmol/L (3.5-5.1); Prothrombin Time 10.3 sec (9.0-12.0); Sodium 139 mmol/L (137-145); Total Bilirubin 0.8 mg/dL (0.2-1.3); Total Protein 7.4 g/dL (6.3-8.2)
[2020-12-03 16:35] LABS: Appearance,Urine Cloudy (Clear); Bacteria,Urine Many /hpf; Bilirubin,Urine Negative (Negative); Blood,Urine Trace (Negative); Color,Urine Yellow; Glucose,Urine (UA) Negative (Negative); Ketones,Urine Negative (Negative); Leukocyte Esterase,Urine Large (Negative); Mucus,Urine Rare /hpf; Nitrite,Urine Negative (Negative); PH, Urine 6.5 (5.0-8.0); Protein,Urine Negative (Negative); RBC,Urine 5 /hpf (0-5); Squamous Epithelial Cell,Urine 2 /hpf (0-4); WBC,Urine 88 /hpf (0-5)
--- NOTE | 2020-12-03 16:35 | US ---
EXAMINATION TYPE: US scrotum with doppler. Grayscale and color Doppler Duplex imaging performed of [place] scrotum. DATE OF EXAM: 12/03/2020 COMPARISON: CLINICAL HISTORY: Right testicle swelling/pain. Right teste swelling. Patient doesn't remember any i njury. Patient is paralyzed. EXAM MEASUREMENTS: TESTICLES: Right Testicle: 3.9 x 4.3 x 3.2 cm Left Testicle: 3.2 x 3.1 x 2.5 cm EPIDIDYMIS HEAD: Right Epididymis: 1.3 x 1.1 x 1.0 cm Left Epididymis: 1.0 x 0.9 x 0.8 cm Doppler performed to assess for testicular vascularity; good bilateral color flow and waveforms are s een. There is no evidence of testicular torsion. Presence of hydroceles: no Presence of varicoceles: no Right testicle appears heterogenous and hypervascular compared to contralateral testicle. IMPRESSION: Right testicle is larger than the left and shows some increased Vascularity. This could r elate to orchitis. No discrete mass.
[2020-12-03 17:17] LABS: Basophils % (A) 0 %; Eosinophils % (A) 0 %; HCT 46.4 % (39.0-53.0); HGB 15.7 gm/dL (13.0-17.5); Lymphocytes # (A) 0.7 k/uL (1.0-4.8); Lymphocytes % (A) 4 %; MCHC 33.8 g/dL (31.0-37.0); MCV 91.7 fL (80.0-100.0); Mean Platelet Volume 7.9; Monocytes # (A) 0.9 k/uL (0-1.0); Monocytes % (A) 4 %; Neutrophils # (A) 17.6 k/uL (1.3-7.7); Neutrophils % (A) 91 %; Platelet Count 246 k/uL (150-450); RBC 5.06 m/uL (4.30-5.90); RDW 13.7 % (11.5-15.5); WBC 19.3 k/uL (3.8-10.6)
[2020-12-03] MEDS ORDERED: PIPERACILLIN-TAZOBACTAM 3.375 GM in SODIUM CHLORIDE 0.9% 100 ML IVPB STA (17:21)
[2020-12-03] MEDS ORDERED: VANCOMYCIN IV PER PHARMACY 1 EACH MISC MISCELLANE PRN (17:24)
[2020-12-03] MEDS ORDERED: VANCOMYCIN 1,500 MG in SODIUM CHLORIDE 0.9% 250 ML IVPB STA (17:36)
[2020-12-03] MEDS ORDERED: NALOXONE 0.4 MG/ML 1 ML VIAL IV PRN (17:38)
--- NOTE | 2020-12-03 17:43 | ED ---
Fever HPI - General Chief Complaint: Fever Stated Complaint: fever Time Seen by Provider: 12/03/20 14:22 Source: patient, family Mode of arrival: wheelchair Limitations: physical limitation - History of Present Illness Initial Comments: 69-year-old male patient presents to the emergency department today for evaluation of fever. Patient states fever started today was elevated at 102F at home. States that he does perform self-catheterization and has had urinary tract infections in the past. States he has had some sweats and chills. Denies any nausea or vomiting. Denies any abdominal pain or back pain. States he does have some right testicular tenderness. 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 Denies any cough or congestion. Denies rash. Patient denies any recent rash, shortness of breath, chest pain, diarrhea, constipation, back pain, numbness, tingling, dizziness, weakness, headache, visual changes, or any other complaints. - Related Data Home Medications Medication Instructions Recorded Confirmed Losartan Potassium 100 mg PO DAILY 12/11/15 12/03/20 ALPRAZolam [Xanax] 0.25 mg PO TID PRN 12/08/19 12/03/20 Atorvastatin Calcium [Lipitor] 80 mg PO W/SUPPER 12/08/19 12/03/20 Pantoprazole Sodium 40 mg PO DAILY 12/08/19 12/03/20 Tamsulosin HCl [Flomax] 0.4 mg PO DAILY 12/08/19 12/03/20 amLODIPine [Norvasc] 5 mg PO BID-W/MEALS 12/08/19 12/03/20 Aspirin EC [Ecotrin] 325 mg PO DAILY 12/03/20 12/03/20 Finasteride [Proscar] 5 mg PO DAILY 12/03/20 12/03/20 Gabapentin 300 mg PO TID 12/03/20 12/03/20 Multivitamins, Thera [Multivitamin 1 tab PO DAILY 12/03/20 12/03/20 (formulary)] Naproxen 500 mg PO HS 12/03/20 12/03/20 Testosterone [Androgel 1% Gel 1 packet TOPICAL DAILY 12/03/20 12/03/20 Packet] traMADol HCl [Ultram] 50 mg PO BID PRN 12/03/20 12/03/20 Allergies Allergy/AdvReac Type Severity Reaction Status Date / Time morphine AdvReac Nausea & Verified 12/03/20 18:13 Vomiting Review of Systems ROS Statement: Those systems with pertinent positive or pertinent negative responses have been documented in the HPI. ROS Other: All systems not noted in ROS Statement are negative. 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 Date of last positivie culture/infection: 12/31/19 MDRO Source:: urine Past Surgical History: No Surgical Hx Reported Additional Past Surgical History / Comment(s): right stent placed by urology two weeks ago Past Anesthesia/Blood Transfusion Reactions: No Reported Reaction Past Psychological History: No Psychological Hx Reported Smoking Status: Never smoker Past Alcohol Use History: None Reported Past Drug Use History: None Reported - Past Family History Mother Family Medical History: Congestive Heart Failure (CHF) Father Family Medical History: Diabetes Mellitus General Exam Limitations: physical limitation General appearance: alert, in no apparent distress, other (This is a well- developed, well-nourished adult male patient in no acute distress. Vital signs upon presentation temperature 102.2F oral, pulse 123, respirations 18, blood pressure 172/87, pulse ox 96% on room air.) Eye exam: Present: normal appearance, PERRL, EOMI. Absent: scleral icterus, conjunctival injection, periorbital swelling ENT exam: Present: normal exam, normal oropharynx, mucous membranes moist Respiratory exam: Present: normal lung sounds bilaterally. Absent: respiratory distress, wheezes, rales, rhonchi, stridor Cardiovascular Exam: Present: normal rhythm, tachycardia, normal heart sounds. Absent: systolic murmur, diastolic murmur, rubs, gallop, clicks GI/Abdominal exam: Present: soft, normal bowel sounds. Absent: distended, tenderness, guarding, rebound, rigid exam: Present: testicular tenderness (Right), other (Right testicular swelling, right testicular tenderness. There is some overlying erythema). Absent: normal inspection Neurological exam: Present: alert, oriented X3, CN II-XII intact Psychiatric exam: Present: normal affect, normal mood Skin exam: Present: warm, dry, intact, normal color. Absent: rash Course Vital Signs 12/03/20 12/03/20 12/03/20 13:58 14:39 15:04 Temperature 100.0 F H 102.2 F H Pulse Rate 123 H 103 H Respiratory 18 20 Rate Blood Pressure 172/87 O2 Sat by Pulse 96 95 Oximetry 12/03/20 12/03/20 12/03/20 16:04 17:00 18:00 Temperature 99.7 F H Pulse Rate 99 89 88 Respiratory 20 18 18 Rate Blood Pressure 160/81 119/75 O2 Sat by Pulse 97 97 97 Oximetry 12/03/20 18:15 Temperature 99.7 F H Pulse Rate 88 Respiratory 18 Rate Blood Pressure 119/75 O2 Sat by Pulse 97 Oximetry Medical Decision Making - Medical Decision Making 69-year-old male patient presents to the emergency department today for evaluat ion of fever. Testicular pain. Physical examination did reveal right testicular enlargement and tenderness with overlying erythema. Labs reviewed and did reveal white blood cell count at 19.3. Urinalysis did show 88 white blood cells and large leukocyte esterase. Many bacteria. Tested negative for influenza, RSV, and COVID-19. Ultrasound findings are consistent with orchitis. He'll be started on Zosyn and vancomycin. I did discuss the case with on-call urologist Dr. Felder who agrees to admission. Patient is agreeable to admission as well. My attending is Dr. Fisher. - Lab Data Result diagrams: 12/03/20 15:27 12/03/20 15:27 Lab Results 12/03/20 12/03/20 12/03/20 Range/Units 15:27 15:27 15:27 WBC 19.3 H (3.8-10.6) k/uL RBC 5.06 (4.30-5.90) m/uL Hgb 15.7 (13.0-17.5) gm/dL Hct 46.4 (39.0-53.0) % MCV 91.7 (80.0-100.0) fL MCH 31.0 (25.0-35.0) pg MCHC 33.8 (31.0-37.0) g/dL RDW 13.7 (11.5-15.5) % Plt Count 246 (150-450) k/uL MPV 7.9 Neutrophils % 91 % Lymphocytes % 4 % Monocytes % 4 % Eosinophils % 0 % Basophils % 0 % Neutrophils # 17.6 H (1.3-7.7) k/uL Lymphocytes # 0.7 L (1.0-4.8) k/uL Monocytes # 0.9 (0-1.0) k/uL Eosinophils # 0.0 (0-0.7) k/uL Basophils # 0.0 (0-0.2) k/uL PT 10.3 (9.0-12.0) sec INR 1.0 (<1.2) APTT 25.0 (22.0-30.0) sec Sodium (137-145) mmol/L Potassium (3.5-5.1) mmol/L Chloride (98-107) mmol/L Carbon Dioxide (22-30) mmol/L Anion Gap mmol/L BUN (9-20) mg/dL Creatinine (0.66-1.25) mg/dL Est GFR (CKD-EPI)AfAm (>60 ml/min/1.73 sqM) Est GFR (CKD-EPI)NonAf (>60 ml/min/1.73 sqM) Glucose (74-99) mg/dL Plasma Lactic Acid Caesar (0.7-2.0) mmol/L Calcium (8.4-10.2) mg/dL Total Bilirubin (0.2-1.3) mg/dL AST (17-59) U/L ALT (4-49) U/L Alkaline Phosphatase (38-126) U/L Total Protein (6.3-8.2) g/dL Albumin (3.5-5.0) g/dL Urine Color Yellow Urine Appearance Cloudy (Clear) Urine pH 6.5 (5.0-8.0) Ur Specific [place] 1.020 (1.001-1.035) Urine Protein Negative (Negative) Urine Glucose (UA) Negative (Negative) Urine Ketones Negative (Negative) Urine Blood Trace H (Negative) Urine Nitrite Negative (Negative) Urine Bilirubin Negative (Negative) Urine Urobilinogen 4.0 (<2.0) mg/dL Ur Leukocyte Esterase Large H (Negative) Urine RBC 5 (0-5) /hpf Urine WBC 88 H (0-5) /hpf Ur Squamous Epith Cells 2 (0-4) /hpf Urine Bacteria Many H (None) /hpf Urine Mucus Rare H (None) /hpf Influenza Type A (PCR) (Not Detectd) Influenza Type B (PCR) (Not Detectd) RSV (PCR) (Not Detectd) SARS-CoV-2 (PCR) (Not Detectd) 12/03/20 12/03/20 12/03/20 Range/Units 15:27 15:27 17:06 WBC (3.8-10.6) k/uL RBC (4.30-5.90) m/uL Hgb (13.0-17.5) gm/dL Hct (39.0-53.0) % MCV (80.0-100.0) fL MCH (25.0-35.0) pg MCHC (31.0-37.0) g/dL RDW (11.5-15.5) % Plt Count (150-450) k/uL MPV Neutrophils % % Lymphocytes % % Monocytes % % Eosinophils % % Basophils % % Neutrophils # (1.3-7.7) k/uL Lymphocytes # (1.0-4.8) k/uL Monocytes # (0-1.0) k/uL Eosinophils # (0-0.7) k/uL Basophils # (0-0.2) k/uL PT (9.0-12.0) sec INR (<1.2) APTT (22.0-30.0) sec Sodium 139 (137-145) mmol/L Potassium 3.8 (3.5-5.1) mmol/L Chloride 104 (98-107) mmol/L Carbon Dioxide 23 (22-30) mmol/L Anion Gap 12 mmol/L BUN 19 (9-20) mg/dL Creatinine 0.53 L (0.66-1.25) mg/dL Est GFR (CKD-EPI)AfAm >90 (>60 ml/min/1.73 sqM) Est GFR (CKD-EPI)NonAf >90 (>60 ml/min/1.73 sqM) Glucose 139 H (74-99) mg/dL Plasma Lactic Acid Acesar 1.3 (0.7-2.0) mmol/L Calcium 9.7 (8.4-10.2) mg/dL Total Bilirubin 0.8 (0.2-1.3) mg/dL AST 33 (17-59) U/L ALT 41 (4-49) U/L Alkaline Phosphatase 200 H (38-126) U/L Total Protein 7.4 (6.3-8.2) g/dL Albumin 4.4 (3.5-5.0) g/dL Urine Color Urine Appearance (Clear) Urine pH (5.0-8.0) Ur Specific [place] (1.001-1.035) Urine Protein (Negative) Urine Glucose (UA) (Negative) Urine Ketones (Negative) Urine Blood (Negative) Urine Nitrite (Negative) Urine Bilirubin (Negative) Urine Urobilinogen (<2.0) mg/dL Ur Leukocyte Esterase (Negative) Urine RBC (0-5) /hpf Urine WBC (0-5) /hpf Ur Squamous Epith Cells (0-4) /hpf Urine Bacteria (None) /hpf Urine Mucus (None) /hpf Influenza Type A (PCR) Not Detected (Not Detectd) Influenza Type B (PCR) Not Detected (Not Detectd) RSV (PCR) Not Detected (Not Detectd) SARS-CoV-2 (PCR) Not Detected (Not Detectd) - EKG Data -: EKG Interpreted by Vt EKG Comments: EKG obtained at 1538 shows sinus tachycardia. Ventricular rate of 110, NV interval 184, QRS duration 102, QT 04/05/2023, QTC 438. No evidence of ST elevation or depression. - Radiology Data Radiology results: report reviewed, image reviewed Ultrasound of the scrotum was obtained. Report was reviewed in its entirety. Impression by Dr. Marroquin shows right testicle larger than the left and show some increased vascularity. This could relate to orchitis. No discrete mass. Disposition Clinical Impression: Orchitis, right, Sepsis Disposition: ADMITTED IP TO THIS [facility] Condition: Serious Decision to Admit Reason: Admit from EC Decision Date: 12/03/20 Decision Time: 17:43
[2020-12-03] MEDS ORDERED: ALPRAZolam 0.25 MG TAB PO PRN (21:19)
[2020-12-03] MEDS: GABAPENTIN 300 MG CAP PO SCH (23:09)
[2020-12-03] MEDS: PIPERACILLIN-TAZOBACTAM 3.375 GM in SODIUM CHLORIDE 0.9% 100 ML IVPB SCH (23:40)
[2020-12-04] MEDS: traMADol 50 MG TAB PO PRN ×2 (02:16→21:10)
[2020-12-04 07:03] LABS: Basophils % (A) 0 %; Eosinophils % (A) 0 %; HCT 39.2 % (39.0-53.0); HGB 13.3 gm/dL (13.0-17.5); Lymphocytes # (A) 1.4 k/uL (1.0-4.8); Lymphocytes % (A) 6 %; MCH 31.3 pg (25.0-35.0); Mean Platelet Volume 7.8; Monocytes # (A) 1.2 k/uL (0-1.0); Monocytes % (A) 5 %; Neutrophils # (A) 20.3 k/uL (1.3-7.7); Neutrophils % (A) 88 %; Platelet Count 236 k/uL (150-450); RBC 4.27 m/uL (4.30-5.90); RDW 13.8 % (11.5-15.5); WBC 23.2 k/uL (3.8-10.6)
--- NOTE | 2020-12-04 07:31 | P.GSCN ---
History of Present Illness Consult date: 12/04/20 Reason for Consult: UTI, right-sided orchitis History of present illness: This is a 69-year-old male with history of spinal cord stroke, developed retention post stroke, his bladder has been managed with CIC. He presented to the hospital with fever of 102 with chills and right-sided testicular pain, on presentation his UA is concerning for UTI, he had an elevated white count at 19.3. Denies any dysuria or gross hematuria. Denies any abdominal pain or flank pain. Denies any difficulty with catheterization. Of note he does have history of recurrent UTIs, his last UTI was in March 2020. He underwent a scrotal ultrasound on presentation showed evidence of right orchitis, but no evidence of scrotal abscess. 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 Year Discovered:: 12/31/19 MDRO Source:: urine Past Surgical History: No Surgical Hx Reported Additional Past Surgical History / Comment(s): right stent placed by urology two weeks ago Past Anesthesia/Blood Transfusion Reactions: No Reported Reaction Past Psychological History: No Psychological Hx Reported Smoking Status: Never smoker Past Alcohol Use History: None Reported Past Drug Use History: None Reported - Past Family History Mother Family Medical History: Congestive Heart Failure (CHF) Father Family Medical History: Diabetes Mellitus Medications and Allergies Home Medications Medication Instructions Recorded Confirmed Type Losartan Potassium 100 mg PO DAILY 12/11/15 12/03/20 History ALPRAZolam [Xanax] 0.25 mg PO TID PRN 12/08/19 12/03/20 History Atorvastatin Calcium [Lipitor] 80 mg PO W/SUPPER 12/08/19 12/03/20 History Pantoprazole Sodium 40 mg PO DAILY 12/08/19 12/03/20 History Tamsulosin HCl [Flomax] 0.4 mg PO DAILY 12/08/19 12/03/20 History amLODIPine [Norvasc] 5 mg PO BID-W/MEALS 12/08/19 12/03/20 History Aspirin EC [Ecotrin] 325 mg PO DAILY 12/03/20 12/03/20 History Finasteride [Proscar] 5 mg PO DAILY 12/03/20 12/03/20 History Gabapentin 300 mg PO TID 12/03/20 12/03/20 History Multivitamins, Thera [Multivitamin 1 tab PO DAILY 12/03/20 12/03/20 History (formulary)] Naproxen 500 mg PO HS 12/03/20 12/03/20 History Testosterone [Androgel 1% Gel 1 packet TOPICAL DAILY 12/03/20 12/03/20 History Packet] traMADol HCl [Ultram] 50 mg PO BID PRN 12/03/20 12/03/20 History Allergies Allergy/AdvReac Type Severity Reaction Status Date / Time morphine AdvReac Nausea & Verified 12/03/20 18:13 Vomiting Surgical - Exam Vital Signs Temp Pulse Resp BP Pulse Ox 100.0 F H 123 H 18 172/87 96 12/03/20 13:58 12/03/20 13:58 12/03/20 13:58 12/03/20 13:58 12/03/20 13:58 - General well developed, well nourished, no distress, no pain - Eyes PERRL, normal ocular movement - ENT normal nares, normal mucosa - Respiratory normal expansion, normal respiratory effort - Abdomen Abdomen: soft, non tender - Genitourinary normal penis with no external lesions right: tender (Right testicle indurated, no fluctuance appreciated) - Psychiatric oriented to time, oriented to person, oriented to place, speech is normal Results - Labs 12/04/20 06:19 12/03/20 15:27 Abnormal Lab Results - Last 24 Hours (Table) 12/03/20 12/03/20 12/03/20 Range/Units 15:27 15:27 15:27 WBC 19.3 H (3.8-10.6) k/uL RBC (4.30-5.90) m/uL Neutrophils # 17.6 H (1.3-7.7) k/uL Lymphocytes # 0.7 L (1.0-4.8) k/uL Monocytes # (0-1.0) k/uL Creatinine 0.53 L (0.66-1.25) mg/dL Glucose 139 H (74-99) mg/dL Alkaline Phosphatase 200 H (38-126) U/L Urine Blood Trace H (Negative) Ur Leukocyte Esterase Large H (Negative) Urine WBC 88 H (0-5) /hpf Urine Bacteria Many H (None) /hpf Urine Mucus Rare H (None) /hpf 12/04/20 Range/Units 06:19 WBC 23.2 H (3.8-10.6) k/uL RBC 4.27 L (4.30-5.90) m/uL Neutrophils # 20.3 H (1.3-7.7) k/uL Lymphocytes # (1.0-4.8) k/uL Monocytes # 1.2 H (0-1.0) k/uL Creatinine (0.66-1.25) mg/dL Glucose (74-99) mg/dL Alkaline Phosphatase (38-126) U/L Urine Blood (Negative) Ur Leukocyte Esterase (Negative) Urine WBC (0-5) /hpf Urine Bacteria (None) /hpf Urine Mucus (None) /hpf Microbiology - Last 24 Hours (Table) 12/03/20 15:27 Urine Culture - Preliminary Urine,Catheterized Diabetes panel 12/03/20 Range/Units 15:27 Sodium 139 (137-145) mmol/L Potassium 3.8 (3.5-5.1) mmol/L Chloride 104 (98-107) mmol/L Carbon Dioxide 23 (22-30) mmol/L BUN 19 (9-20) mg/dL Creatinine 0.53 L (0.66-1.25) mg/dL Glucose 139 H (74-99) mg/dL Calcium 9.7 (8.4-10.2) mg/dL AST 33 (17-59) U/L ALT 41 (4-49) U/L Alkaline Phosphatase 200 H (38-126) U/L Total Protein 7.4 (6.3-8.2) g/dL Albumin 4.4 (3.5-5.0) g/dL Calcium panel 12/03/20 Range/Units 15:27 Calcium 9.7 (8.4-10.2) mg/dL Albumin 4.4 (3.5-5.0) g/dL Pituitary panel 12/03/20 Range/Units 15:27 Sodium 139 (137-145) mmol/L Potassium 3.8 (3.5-5.1) mmol/L Chloride 104 (98-107) mmol/L Carbon Dioxide 23 (22-30) mmol/L BUN 19 (9-20) mg/dL Creatinine 0.53 L (0.66-1.25) mg/dL Glucose 139 H (74-99) mg/dL Calcium 9.7 (8.4-10.2) mg/dL Adrenal panel 12/03/20 Range/Units 15:27 Sodium 139 (137-145) mmol/L Potassium 3.8 (3.5-5.1) mmol/L Chloride 104 (98-107) mmol/L Carbon Dioxide 23 (22-30) mmol/L BUN 19 (9-20) mg/dL Creatinine 0.53 L (0.66-1.25) mg/dL Glucose 139 H (74-99) mg/dL Calcium 9.7 (8.4-10.2) mg/dL Total Bilirubin 0.8 (0.2-1.3) mg/dL AST 33 (17-59) U/L ALT 41 (4-49) U/L Alkaline Phosphatase 200 H (38-126) U/L Total Protein 7.4 (6.3-8.2) g/dL Albumin 4.4 (3.5-5.0) g/dL - Imaging Additional studies: Ultrasound of testicle reviewed, consistent with right orchitis Assessment and Plan Assessment: 69-year-old male admitted to the hospital with a UTI right sided orchitis. 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 Which was 19.3 on presentation, exam is consistent with orchitis. History of spinal cord stroke, his bladder is being managed with CIC -Continue IV antibiotics, follow up on urine culture. Given his history of multidrug resistant UTI recommend keeping the hospital until cultures finalized -Keep Neves in place, can remove Neves prior to discharge and can resume CIC at time of discharge.
[2020-12-04] MEDS: TAMSULOSIN 0.4 MG CAP.ER.24H PO SCH (07:48)
[2020-12-04] MEDS: PANTOPRAZOLE 40 MG TABLET PO SCH (07:48)
[2020-12-04] MEDS: GABAPENTIN 300 MG CAP PO SCH ×3 (07:48→21:10)
[2020-12-04] MEDS: LOSARTAN 50 MG TAB PO SCH (07:48)
[2020-12-04] MEDS: ASPIRIN 325 MG TAB PO SCH (07:49)
[2020-12-04] MEDS: MULTIVITAMINS, THERA 1 EACH TAB PO SCH (07:49)
[2020-12-04] MEDS: FINASTERIDE 5 MG TAB PO SCH (07:49)
[2020-12-04] MEDS: VANCOMYCIN 1,500 MG in SODIUM CHLORIDE 0.9% 250 ML IVPB SCH ×2 (07:51→20:17)
[2020-12-04] MEDS: PIPERACILLIN-TAZOBACTAM 3.375 GM in SODIUM CHLORIDE 0.9% 100 ML IVPB SCH ×3 (10:24→23:59)
[2020-12-04] MEDS: TESTOSTERONE TOPICAL SCH (10:29)
[2020-12-04] MEDS: ATORVASTATIN 80 MG TAB PO SCH (16:56)
[2020-12-04] MEDS ORDERED: NAPROXEN 250 MG TAB PO STA (18:22)
--- NOTE | 2020-12-04 18:28 | P.HPIM ---
History of Present Illness H&P Date: 12/04/20 Chief Complaint: Right testicle pain History of presenting complaint: This is a pleasant 69-year-old patient who follows Dr. Baez. Chronic stable medical conditions include osteoarthritis, anxiety, BPH, hypertension,. Patient is pulse code stroke in 2019. Now uses a walker. He has numbness in the right leg below the knee downwards and in the left leg in the ankle and the foot. Has partial bowel movement controlled. Patient does self bladder catheterization 4 times a day. Patient started having right groin pain for about to 3 days. Starting getting worse. Developed chills. Right testicle started aching. He coming more sensitive. Had a fever 102.6 at home. Decided to come to the ER. Patient accompanied in the room by his and son. He does have a history of recurrent UTIs. Scrotal ultrasound was negative for any abscess. Review of systems: GEN.: Tired, fever EYES: None HEENT: None NECK: None RESPIRATORY: None CARDIOVASCULAR: None GASTROINTESTINAL: Partial bowel movement control GENITOURINARY: As above MUSCULOSKELETAL: None LYMPHATICS: None HEMATOLOGICAL: None PSYCHIATRY: None NEUROLOGICAL: Weakness in lower extremity and numbness Past medical history to include: Spinal cord stroke in 2019, causing lower extremity weakness, bladder dysfunction, osteoarthritis, anxiety, hypertension, peripheral neuropathy Social history: . No history of smoking and alcohol. Family history: CHF Physical examination: VITAL SIGNS: 102.2, 123, 18, 160/81, 97% room air GENERAL: BMI 30.4, sitting up in bed, awake a bit tired. EYES: Pupils equal. Conjunctiva normal. HEENT: External appearance of nose and ears normal, oral cavity grossly normal. NECK: JVD not raised; masses not palpable. HEART: First and second heart sounds are normal; no edema. LUNGS: Respiratory rate normal; clear to auscultation. ABDOMEN: Soft, nontender, liver spleen not palpable, no masses palpable. Right scrotum bit swollen with tenderness. Neves catheter PSYCH: Alert and oriented x3; mood and affect normal. NEUROLOGICAL: [Cranial nerves grossly intact; no facial asymmetry, decreased bilateral lower extremity. Decreased sensation LYMPHATICS: No lymph nodes palpable in the axilla and neck INVESTIGATIONS, reviewed in the clinical context: WBC 23.2 hemoglobin 13.3 platelets 236 potassium 3.8 sodium 139 BUN 19 creatinine 0.53 UA positive for leukoesterase, WBC, bacteria Influenza type A, type B, RSV, COVID 19: Not detected EKG tracing personally reviewed by me-normal sinus rhythm, rate 110 Scrotal ultrasound: Right testicle is larger than the left. Showing increased vascularity. Assessment and plan: -Patient has developed pain swelling of the right scrotum for about 3 days. With fever and chills. Acute orchitis. Bacterial. Causing sepsis IV Zosyn. IV vancomycin. Consult ID. Add naproxen for anti-inflammatory effect. -Hyperlipidemia Lipitor 80 mg daily at bedtime -Anxiety not otherwise specified Xanax 0.25 by mouth 3 times a day when necessary -GERD 40 mg by mouth daily -Essential hypertension 5 mg by mouth twice a day, losartan 100 mg daily -Peripheral neuropathy Gabapentin 300 mg 3 times a day -BPH Proscar 5 mg daily, Flomax 0.4 mg daily -Neurogenic bladder from spinal cord stroke Patient does self-catheterization at home. IV fluids. IV Zosyn IV vancomycin. Naproxen for anti-inflammatory effect, warm compress and support scrotum with elevation. ID and urology consulted. Bloody urine culture pending. Care was discussed with the patient family at the bedside. Questions answered. Home medications resumed. 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 Date of last positivie culture/infection: 12/31/19 MDRO Source:: urine Past Surgical History: No Surgical Hx Reported Additional Past Surgical History / Comment(s): right stent placed by urology two weeks ago Past Anesthesia/Blood Transfusion Reactions: No Reported Reaction Past Psychological History: No Psychological Hx Reported Smoking Status: Never smoker Past Alcohol Use History: None Reported Past Drug Use History: None Reported - Past Family History Mother Family Medical History: Congestive Heart Failure (CHF) Father Family Medical History: Diabetes Mellitus Medications and Allergies Home Medications Medication Instructions Recorded Confirmed Type Losartan Potassium 100 mg PO DAILY 12/11/15 12/03/20 History ALPRAZolam [Xanax] 0.25 mg PO TID PRN 12/08/19 12/03/20 History Atorvastatin Calcium [Lipitor] 80 mg PO W/SUPPER 12/08/19 12/03/20 History Pantoprazole Sodium 40 mg PO DAILY 12/08/19 12/03/20 History Tamsulosin HCl [Flomax] 0.4 mg PO DAILY 12/08/19 12/03/20 History amLODIPine [Norvasc] 5 mg PO BID-W/MEALS 12/08/19 12/03/20 History Aspirin EC [Ecotrin] 325 mg PO DAILY 12/03/20 12/03/20 History Finasteride [Proscar] 5 mg PO DAILY 12/03/20 12/03/20 History Gabapentin 300 mg PO TID 12/03/20 12/03/20 History Multivitamins, Thera [Multivitamin 1 tab PO DAILY 12/03/20 12/03/20 History (formulary)] Naproxen 500 mg PO HS 12/03/20 12/03/20 History Testosterone [Androgel 1% Gel 1 packet TOPICAL DAILY 12/03/20 12/03/20 History Packet] traMADol HCl [Ultram] 50 mg PO BID PRN 12/03/20 12/03/20 History Allergies Allergy/AdvReac Type Severity Reaction Status Date / Time morphine AdvReac Nausea & Verified 12/03/20 18:13 Vomiting Physical Exam Vitals: Vital Signs Temp Pulse Pulse Resp BP BP Pulse Ox 12/04/20 07:45 98.8 F 76 132/67 12/04/20 04:46 98.5 F 86 20 146/88 96 12/03/20 20:00 81 18 12/03/20 18:23 98.0 F 81 18 118/78 97 12/03/20 18:15 99.7 F H 88 18 119/75 97 12/03/20 18:00 88 18 97 12/03/20 17:00 89 18 119/75 97 12/03/20 16:04 99.7 F H 99 20 160/81 97 12/03/20 15:04 103 H 20 95 12/03/20 14:39 102.2 F H 12/03/20 13:58 100.0 F H 123 H 18 172/87 96 Intake and Output 12/03/20 12/04/20 12/04/20 22:59 06:59 14:59 Intake Total 500 200 Output Total 250 1400 Balance 250 -1200 Intake: Oral 500 200 Output: Urine 250 1400 Uretheral (Neves) 250 700 Other: Voiding Method Indwelling Catheter Weight 90.718 kg Results CBC & Chem 7: 12/04/20 06:19 12/03/20 15:27 Labs: Abnormal Lab Results - Last 24 Hours (Table) 12/03/20 12/03/20 12/03/20 Range/Units 15:27 15:27 15:27 WBC 19.3 H (3.8-10.6) k/uL RBC (4.30-5.90) m/uL Neutrophils # 17.6 H (1.3-7.7) k/uL Lymphocytes # 0.7 L (1.0-4.8) k/uL Monocytes # (0-1.0) k/uL Creatinine 0.53 L (0.66-1.25) mg/dL Glucose 139 H (74-99) mg/dL Alkaline Phosphatase 200 H (38-126) U/L Urine Blood Trace H (Negative) Ur Leukocyte Esterase Large H (Negative) Urine WBC 88 H (0-5) /hpf Urine Bacteria Many H (None) /hpf Urine Mucus Rare H (None) /hpf 12/04/20 Range/Units 06:19 WBC 23.2 H (3.8-10.6) k/uL RBC 4.27 L (4.30-5.90) m/uL Neutrophils # 20.3 H (1.3-7.7) k/uL Lymphocytes # (1.0-4.8) k/uL Monocytes # 1.2 H (0-1.0) k/uL Creatinine (0.66-1.25) mg/dL Glucose (74-99) mg/dL Alkaline Phosphatase (38-126) U/L Urine Blood (Negative) Ur Leukocyte Esterase (Negative) Urine WBC (0-5) /hpf Urine Bacteria (None) /hpf Urine Mucus (None) /hpf Microbiology - Last 24 Hours (Table) 12/03/20 15:27 Urine Culture - Preliminary Urine,Catheterized Thrombosis Risk Factor Assmnt - Choose All That Apply Each Factor Represents 1 point: Obesity (BMI >25) Each Risk Factor Represents 2 Points: Age 61-74 years Thrombosis Risk Factor Assessment Total Risk Factor Score: 3 Thrombosis Risk Factor Assessment Level: Moderate Risk
[2020-12-04] MEDS: SODIUM CHLORIDE 0.9% 1,000 ML IV SCH (19:44)
[2020-12-04] MEDS: NAPROXEN 250 MG TAB PO SCH (21:09)
[2020-12-05] MEDS: SODIUM CHLORIDE 0.9% 1,000 ML IV SCH ×3 (06:05→22:41)
[2020-12-05 06:33] LABS: Basophils % (A) 0 %; Eosinophils # (A) 0.5 k/uL (0-0.7); Eosinophils % (A) 3 %; HCT 40.3 % (39.0-53.0); Lymphocytes % (A) 14 %; MCH 30.7 pg (25.0-35.0); MCHC 32.3 g/dL (31.0-37.0); Mean Platelet Volume 8.1; Monocytes # (A) 0.9 k/uL (0-1.0); Monocytes % (A) 6 %; Neutrophils % (A) 75 %; Platelet Count 213 k/uL (150-450); RBC 4.24 m/uL (4.30-5.90); RDW 13.3 % (11.5-15.5); WBC 14.7 k/uL (3.8-10.6)
--- NOTE | 2020-12-05 06:41 | P.CONS ---
History of Present Illness - Reason for Consult Consult date: 12/04/20 orchitis Requesting physician: John Jean-Baptiste - Chief Complaint Fever x 1 day - History of Present Illness History of present illness : Patient is here with 69-year-old male with a past medical history significant for urinary retention please for the patient to self-catheterization at home 3-4 times a day patient presented to the ER yesterday afternoon for evaluation of fever of 102 F at home patient also complaining of feeling chills and sweats the patient denies having any headache no URI symptoms no chest pain no shortness of breath no cough no nausea no vomiting no abdominal pain no diarrhea patient did have a some swelling and tenderness to the right testicular area with the symptoms the patient has been evaluated by the ER physician on arrival to the patient did have a fever 102.2 F patient did have white count of 19,000 repeat is up to 23.2 thousand today kidney function has been normal urine was positive verdin PCR has been negative patient did have a scrotal ultrasound which did shows increased size of the right testicle concerning for orchitis patient was started on vancomycin and Zosyn has been admitted to the hospital infectious disease was consulted for further management of antibiotic therapy Review of system: CONSTITUTIONAL: Positive for weakness along with the fever. EYES: No complaint. ENT: No complaint. RESPIRATORY: No complaint. CARDIOVASCULAR: No complaint. GENITOURINARY as per history of present illness. GASTROINTESTINAL: No complaint. MUSCULOSKELETAL: No complaint. INTEGUMENTARY: No complaint. PSYCHOLOGIC: No complaint. ENDOCRINE: No complaint. NEUROLOGIC: No complaint. Past medical history : Reviewed, documented below Past surgical history : Reviewed, documented below Social history: Reviewed, documented below Medications: Reviewed, as documented below EXAMINATION: Vital sigans= Reviewed and documented below GENERAL DESCRIPTION: Elderly male lying in bed, no distress. No tachypnea or accessory muscle of respiration use. HEENT: Shows Pallor , no scleral icterus. Oral mucous membrane is dry. NECK: Trachea central, no thyromegaly. LUNGS: Unlabored breathing. Clear to auscultation anteriorly. No wheeze or crackle. HEART: S1, S2, regular rate and rhythm. ABDOMEN: Soft, no tenderness , guarding or rigidity : Patient did have some swelling redness of the right scrotal area with mild Tenderness EXTREMITIES: No edema of feet. SKIN: No rash, no masses palpable. NEUROLOGICAL: The patient is awake, alert, oriented x3, mood and affect normal. LABS AND RADIOLOGY: Reviewed results see below Assessment : Patient presented to hospital with sepsis in this patient who did have a fever elevated white count source likely urinary tract infection and right-sided orchitis likely from enteric gram-negative pathogen in this patient who did have a urinary retention requiring self-catheterization to be the likely risk factor Plan: 1-discontinue vancomycin and Zosyn to decrease risk of nephrotoxicity 2-cefepime 2 g every 8 hour 3-gentle IV fluid We will follow on clinical condition and cultures to further adjust medication if needed Thank you for this consultation we will follow the patient along with you 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 Year Discovered:: 12/31/19 MDRO Source:: urine Past Surgical History: No Surgical Hx Reported Additional Past Surgical History / Comment(s): right stent placed by urology two weeks ago Past Anesthesia/Blood Transfusion Reactions: No Reported Reaction Past Psychological History: No Psychological Hx Reported Smoking Status: Never smoker Past Alcohol Use History: None Reported Past Drug Use History: None Reported - Past Family History Mother Family Medical History: Congestive Heart Failure (CHF) Father Family Medical History: Diabetes Mellitus Medications and Allergies Home Medications Medication Instructions Recorded Confirmed Type Losartan Potassium 100 mg PO DAILY 12/11/15 12/03/20 History ALPRAZolam [Xanax] 0.25 mg PO TID PRN 12/08/19 12/03/20 History Atorvastatin Calcium [Lipitor] 80 mg PO W/SUPPER 12/08/19 12/03/20 History Pantoprazole Sodium 40 mg PO DAILY 12/08/19 12/03/20 History Tamsulosin HCl [Flomax] 0.4 mg PO DAILY 12/08/19 12/03/20 History amLODIPine [Norvasc] 5 mg PO BID-W/MEALS 12/08/19 12/03/20 History Aspirin EC [Ecotrin] 325 mg PO DAILY 12/03/20 12/03/20 History Finasteride [Proscar] 5 mg PO DAILY 12/03/20 12/03/20 History Gabapentin 300 mg PO TID 12/03/20 12/03/20 History Multivitamins, Thera [Multivitamin 1 tab PO DAILY 12/03/20 12/03/20 History (formulary)] Naproxen 500 mg PO HS 12/03/20 12/03/20 History Testosterone [Androgel 1% Gel 1 packet TOPICAL DAILY 12/03/20 12/03/20 History Packet] traMADol HCl [Ultram] 50 mg PO BID PRN 12/03/20 12/03/20 History Allergies Allergy/AdvReac Type Severity Reaction Status Date / Time morphine AdvReac Nausea & Verified 12/03/20 18:13 Vomiting Physical Exam Vitals: Vital Signs Temp Pulse Pulse Resp BP BP Pulse Ox 12/04/20 13:40 98.6 F 87 18 126/70 97 12/04/20 10:36 98.7 F 12/04/20 08:25 76 20 12/04/20 07:45 98.8 F 76 132/67 12/04/20 04:46 98.5 F 86 20 146/88 96 12/03/20 20:00 81 18 12/03/20 18:23 98.0 F 81 18 118/78 97 12/03/20 18:15 99.7 F H 88 18 119/75 97 12/03/20 18:00 88 18 97 12/03/20 17:00 89 18 119/75 97 Intake and Output 12/04/20 12/04/20 12/04/20 06:59 14:59 22:59 Intake Total 200 Output Total 1400 700 Balance -1200 -700 Intake: Oral 200 Output: Urine 1400 700 Uretheral (Neves) 700 Other: Voiding Method Indwelling Catheter Results CBC & Chem 7: 12/05/20 05:40 12/03/20 15:27 Labs: Abnormal Lab Results - Last 24 Hours (Table) 12/03/20 12/03/20 12/04/20 Range/Units 15:27 15:27 06:19 WBC 19.3 H 23.2 H (3.8-10.6) k/uL RBC 4.27 L (4.30-5.90) m/uL Neutrophils # 17.6 H 20.3 H (1.3-7.7) k/uL Lymphocytes # 0.7 L (1.0-4.8) k/uL Monocytes # 1.2 H (0-1.0) k/uL Urine Blood Trace H (Negative) Ur Leukocyte Esterase Large H (Negative) Urine WBC 88 H (0-5) /hpf Urine Bacteria Many H (None) /hpf Urine Mucus Rare H (None) /hpf Microbiology - Last 24 Hours (Table) 12/03/20 15:27 Urine Culture - Preliminary Urine,Catheterized
[2020-12-05 06:50] LABS: African American GFR (CKD) >90 (>60 ml/min/1.73 sqM); Anion Gap 6 mmol/L; Blood Urea Nitrogen 12 mg/dL (9-20); Calcium 8.6 mg/dL (8.4-10.2); Carbon Dioxide 24 mmol/L (22-30); Chloride 106 mmol/L (98-107); Glucose 102 mg/dL (74-99); Non-African American GFR(CKD) >90 (>60 ml/min/1.73 sqM); Potassium 3.6 mmol/L (3.5-5.1); Sodium 136 mmol/L (137-145)
[2020-12-05] MEDS: FINASTERIDE 5 MG TAB PO SCH (07:52)
[2020-12-05] MEDS: ASPIRIN 325 MG TAB PO SCH (07:52)
[2020-12-05] MEDS: MULTIVITAMINS, THERA 1 EACH TAB PO SCH (07:52)
[2020-12-05] MEDS: GABAPENTIN 300 MG CAP PO SCH ×3 (07:52→21:05)
[2020-12-05] MEDS: LOSARTAN 50 MG TAB PO SCH (07:52)
[2020-12-05] MEDS: PANTOPRAZOLE 40 MG TABLET PO SCH (07:53)
[2020-12-05] MEDS: NAPROXEN 250 MG TAB PO SCH ×4 (07:53→21:05)
[2020-12-05] MEDS: TAMSULOSIN 0.4 MG CAP.ER.24H PO SCH (07:54)
[2020-12-05] MEDS: TESTOSTERONE TOPICAL SCH (07:54)
[2020-12-05] MEDS: CEFEPIME 2 GM in SODIUM CHLORIDE 0.9% 100 ML IVPB SCH ×2 (07:55→16:52)
--- NOTE | 2020-12-05 15:41 | CDI ---
Documentation Clarification Form Date: 12/05/2020 03:13:00 PM From: Marian Celis RN, CCDS Admit Date: 12/03/2020 05:24:00 PM Patient Name: Rip Samaniego Visit Number: [id number] Discharge Date: ATTENTION: The Clinical Documentation Specialists (CDI) and [facility] Coding Staff appreciate your assistance in clarifying documentation. Please respond to the clarification below the line at the bottom and electronically sign. The CDI & [facility] Coding staff will review the response and follow-up if needed. Please note: Queries are made part of the Legal Health Record. If you have any questions, please contact the author of this message via ITS. Dr. Geovanny Brewster UTI is documented surgical and ID consult, the attending progress note and discharge summary. Patient has history of neurogenic bladder and self-bladder catheterization 4 times a day per H/P. Additional clarification regarding this diagnosis is requested. 12/04 ID (Dr. Bueno): Presented to hospital with sepsis, source likely urinary tract infection and right-sided orchitis likely from enteric gram negative pathogen in this patient who did have a urinary retention requiring self- catheterization to be the likely risk factor. History/Risk Factors: CVA, Hypertension, Paralyzed waist down, Incomplete spinal cord stroke, recurrent UTI's Clinical Indicators: 69-year-old male who present to ED on 12/03/20 with complaint of right testicle pain. Scrotal ultrasound: negative for any abscess 12/03 Vital Signs: 172/87 123 18 100.0 102.2 12/03 WBC 19.3 12/03 Urinalysis: Ur Leukocyte Esterase Large, Urine Bacteria Many 12/03 Urine culture: Preliminary: Gram Neg Bacilli Treatment Zosyn 3.75 GM IVPB Q 8HR (12/03-12/04) Vancomycin 1500 MG IVPB Q 12HR (12/03-12/04) Naproxen 250 MG PO TID Maxipime 2 GM IVPB Q 8 HRS 12/05 ,9NS @ 130 HR Flomax .4 MG PO Daily Ultram 50 MG PO BID PRN Please clarify if there is an additional diagnosis associated with the UTI: [ ] UTI with Sepsis secondary to self-catheterization, POA [ ] Sepsis due to UTI not self-catheterization associated [ ] Other, please specify [ ] Unable to determine (Template Last Revised: May 2020) UTI with Sepsis secondary to self-catheterization, [facility]
[2020-12-05] MEDS: ATORVASTATIN 80 MG TAB PO SCH (16:51)
[2020-12-05] MEDS ORDERED: VANCOMYCIN TROUGH DUE 1 EACH MISC MISCELLANE ONE (18:00)
--- NOTE | 2020-12-05 18:24 | P.PN ---
Progress Note - Text Progress Note Date: 12/05/20 Chief Complaint: Right testicle pain History of presenting complaint: This is a pleasant 69-year-old patient who follows Dr. Baez. Chronic stable medical conditions include osteoarthritis, anxiety, BPH, hypertension,. Patient is pulse code stroke in 2019. Now uses a walker. He has numbness in the right leg below the knee downwards and in the left leg in the ankle and the foot. Has partial bowel movement controlled. Patient does self bladder catheterization 4 times a day. Patient started having right groin pain for about to 3 days. Starting getting worse. Developed chills. Right testicle started aching. He coming more sensitive. Had a fever 102.6 at home. Decided to come to the ER. Patient accompanied in the room by his and son. He does have a history of recurrent UTIs. Scrotal ultrasound was negative for any abscess. Admitted with acute orchitis on the right site with sepsis possibly bacterial, sepsis. Started on IV Zosyn., IV fluids. NSAIDs. December 05: Patient seen by ID. Antibiotic changed to IV cefepime. Oral intake good. No more fever. Local pain is better. at the bedside. Review of systems: Was done for constitutional, cardiovascular, GI, pulmonary. relevant finding as above Active Medications Alprazolam (Alprazolam 0.25 Mg Tab) 0.25 mg PO TID PRN PRN Reason: Anxiety Aspirin (Aspirin 325 Mg Tab) 325 mg PO DAILY [facility] Last Admin: 12/05/20 07:52 Dose: 325 mg Documented by: Atorvastatin Calcium (Atorvastatin 80 Mg Tab) 80 mg PO W/SUPPER [facility] Last Admin: 12/05/20 16:51 Dose: 80 mg Documented by: Finasteride (Finasteride 5 Mg Tab) 5 mg PO DAILY [facility] Last Admin: 12/05/20 07:52 Dose: 5 mg Documented by: Gabapentin (Gabapentin 300 Mg Cap) 300 mg PO TID [facility] Last Admin: 12/05/20 16:51 Dose: 300 mg Documented by: Sodium Chloride (Saline 0.9%) 1,000 mls @ 130 mls/hr IV .Q7H42M [facility] Last Admin: 12/05/20 13:26 Dose: 130 mls/hr Documented by: Cefepime HCl 2 gm/ Sodium (Chloride) 100 mls @ 25 mls/hr IVPB Q8HR [facility] Last Admin: 12/05/20 16:52 Dose: 25 mls/hr Documented by: Losartan Potassium (Losartan 50 Mg Tab) 100 mg PO DAILY [facility] Last Admin: 12/05/20 07:52 Dose: 100 mg Documented by: Multivitamins (Multivitamins, Thera 1 Each Tab) 1 each PO DAILY [facility] Last Admin: 12/05/20 07:52 Dose: 1 each Documented by: Naloxone HCl (Naloxone 0.4 Mg/Ml 1 Ml Vial) 0.2 mg IV Q2M PRN PRN Reason: Opioid Reversal Naproxen (Naproxen 250 Mg Tab) 500 mg PO HS [facility] Last Admin: 12/04/20 21:09 Dose: Not Given Documented by: Naproxen (Naproxen 250 Mg Tab) 250 mg PO TID [facility] Last Admin: 12/05/20 16:51 Dose: 250 mg Documented by: Patient's Own ( Testosterone [ Androgel 1% Gel Packet] 5 Gm Packet) 1 packet TOPICAL DAILY [facility] Last Admin: 12/05/20 07:54 Dose: 1 packet Documented by: Pantoprazole Sodium (Pantoprazole 40 Mg Tablet) 40 mg PO DAILY [facility] Last Admin: 12/05/20 07:53 Dose: 40 mg Documented by: Tamsulosin HCl (Tamsulosin 0.4 Mg Cap.Er.24h) 0.4 mg PO DAILY [facility] Last Admin: 12/05/20 07:54 Dose: 0.4 mg Documented by: Tramadol HCl (Tramadol 50 Mg Tab) 50 mg PO BID PRN PRN Reason: Pain Last Admin: 12/04/20 21:10 Dose: 50 mg Documented by: Past medical history to include: Spinal cord stroke in 2019, causing lower extremity weakness, bladder dysfunction, osteoarthritis, anxiety, hypertension, peripheral neuropathy Social history: . No history of smoking and alcohol. Family history: CHF Physical examination: VITAL SIGNS: Afebrile, 64, 16, 1 4682, 98% room air GENERAL: Sitting on bed, more comfortable EYES: Pupils equal. Conjunctiva normal. HEENT: External appearance of nose and ears normal, oral cavity grossly normal. NECK: JVD not raised; masses not palpable. HEART: First and second heart sounds are normal; no edema. LUNGS: Respiratory rate normal; clear to auscultation. ABDOMEN: Soft, nontender, liver spleen not palpable, no masses palpable. Right scrotum bit swollen with tenderness. Neves catheter PSYCH: Alert and oriented x3; mood and affect normal. NEUROLOGICAL decreased power bilateral lower extremity. Decreased sensation INVESTIGATIONS, reviewed in the clinical context: December 05: WBC 14.7 hemoglobin 13 platelet is 213 potassium 3.6 creatinine 0.44 Urine culture: Gram-negative bacilli WBC 23.2 hemoglobin 13.3 platelets 236 potassium 3.8 sodium 139 BUN 19 creatinine 0.53 UA positive for leukoesterase, WBC, bacteria Influenza type A, type B, RSV, COVID 19: Not detected EKG tracing personally reviewed by me-normal sinus rhythm, rate 110 Scrotal ultrasound: Right testicle is larger than the left. Showing increased vascularity. Assessment and plan: -Patient has developed pain swelling of the right scrotum for about 3 days. With fever and chills. Acute orchitis. Bacterial. Causing sepsis IV Zosyn. IV vancomycin. Consult ID. Add naproxen for anti-inflammatory effect. -Acute UTI with cystitis with gram-negative bacilli IV cefepime -Hyperlipidemia Lipitor 80 mg daily at bedtime -Anxiety not otherwise specified Xanax 0.25 by mouth 3 times a day when necessary -GERD 40 mg by mouth daily -Essential hypertension 5 mg by mouth twice a day, losartan 100 mg daily -Peripheral neuropathy Gabapentin 300 mg 3 times a day -BPH Proscar 5 mg daily, Flomax 0.4 mg daily -Neurogenic bladder from spinal cord stroke Patient does self-catheterization at home. IV fluids. To be cutback. IV cefepime. Discussed with the patient. Continue with local care. Other medications to continue. Repeat labs.
[2020-12-06] MEDS: CEFEPIME 2 GM in SODIUM CHLORIDE 0.9% 100 ML IVPB SCH ×2 (00:01→09:27)
[2020-12-06] MEDS: SODIUM CHLORIDE 0.9% 1,000 ML IV SCH (02:28)
--- NOTE | 2020-12-06 06:04 | PN ---
PROGRESS NOTE DATE OF SERVICE: 12/05/2020 REASON FOR FOLLOWUP: UTI and bronchitis. INTERVAL HISTORY: Patient is afebrile. The patient is breathing comfortably. The patient denies having any chest pain, shortness of breath or cough. No nausea. No vomiting. No abdominal pain. No diarrhea. PHYSICAL EXAMINATION: Blood pressure 148/79 with a pulse of 69, temperature 98.8. He is 96% on room air. General description is an elderly male lying in bed in no distress. Respiratory system: Unlabored breathing. Clear to auscultation anteriorly. Heart S1, S2. Regular rate and rhythm. Abdomen soft, no tenderness. LABS: Hemoglobin is 13, white count of 14.7, creatinine 0.44. Urine showing gram-negative. Blood culture has been negative. DIAGNOSTIC IMPRESSION AND PLAN: Patient with Gram-negative urinary tract infection with right-sided orchitis for which the patient is currently covered with Rocephin that will be continued while waiting for the cultures to finalize and monitor clinical course closely. MMODL / IJN: [id number] /
[2020-12-06 06:18] LABS: Basophils % (A) 0 %; Eosinophils # (A) 0.5 k/uL (0-0.7); Eosinophils % (A) 6 %; HCT 40.2 % (39.0-53.0); HGB 13.1 gm/dL (13.0-17.5); Lymphocytes # (A) 1.4 k/uL (1.0-4.8); Lymphocytes % (A) 16 %; MCH 29.9 pg (25.0-35.0); MCHC 32.6 g/dL (31.0-37.0); MCV 91.6 fL (80.0-100.0); Mean Platelet Volume 7.5; Monocytes # (A) 0.5 k/uL (0-1.0); Monocytes % (A) 6 %; Neutrophils # (A) 5.8 k/uL (1.3-7.7); Neutrophils % (A) 70 %; Platelet Count 241 k/uL (150-450); RBC 4.39 m/uL (4.30-5.90); RDW 13.7 % (11.5-15.5); WBC 8.3 k/uL (3.8-10.6)
[2020-12-06 06:36] LABS: African American GFR (CKD) >90 (>60 ml/min/1.73 sqM); Anion Gap 7 mmol/L; Blood Urea Nitrogen 10 mg/dL (9-20); Calcium 8.9 mg/dL (8.4-10.2); Carbon Dioxide 25 mmol/L (22-30); Chloride 107 mmol/L (98-107); Glucose 107 mg/dL (74-99); Non-African American GFR(CKD) >90 (>60 ml/min/1.73 sqM); Potassium 3.7 mmol/L (3.5-5.1); Sodium 139 mmol/L (137-145)
[2020-12-06 08:22] VITALS: BP 136/87; PULSE 61; RESP 18; TEMP 98
[2020-12-06] MEDS ORDERED: CIPROFLOXACIN HCL 500 MG TAB PO STA (09:21)
[2020-12-06] MEDS: NAPROXEN 250 MG TAB PO SCH (10:08)
[2020-12-06] MEDS: FINASTERIDE 5 MG TAB PO SCH (10:09)
[2020-12-06] MEDS: GABAPENTIN 300 MG CAP PO SCH (10:09)
[2020-12-06] MEDS: LOSARTAN 50 MG TAB PO SCH (10:09)
[2020-12-06] MEDS: TAMSULOSIN 0.4 MG CAP.ER.24H PO SCH (10:09)
[2020-12-06] MEDS: PANTOPRAZOLE 40 MG TABLET PO SCH (10:10)
[2020-12-06] MEDS: MULTIVITAMINS, THERA 1 EACH TAB PO SCH (10:10)
[2020-12-06] MEDS: ASPIRIN 325 MG TAB PO SCH (10:10)
[2020-12-06] MEDS: TESTOSTERONE TOPICAL SCH (10:29)
--- NOTE | 2020-12-06 10:43 | P.PN ---
Subjective Progress Note Date: 12/06/20 The patient is in the hospital with a right epididymal orchitis. He has a known history of a neurogenic bladder. There is no abscess. The patient's swelling and pain of diminished. He is feeling much better. From urologic standpoint he can be discharged home. He should follow-up with in one week. He may resume intermittent catheterization. Objective - Vital Signs Vital signs: Vital Signs Temp 98 F 12/06/20 08:21 Pulse 61 12/06/20 08:21 Resp 18 12/06/20 08:21 BP 136/87 12/06/20 08:21 Pulse Ox 96 12/06/20 08:21 Intake & Output 12/05/20 12/06/20 12/06/20 18:59 06:59 18:59 Output Total 2250 Balance -2250 Output: Urine 2250 Other: Voiding Method Indwelling Catheter Indwelling Catheter Indwelling Catheter - Labs CBC & Chem 7: 12/06/20 05:40 12/06/20 05:40 Labs: Abnormal Lab Results - Last 24 Hours (Table) 12/06/20 Range/Units 05:40 Creatinine 0.48 L (0.66-1.25) mg/dL Glucose 107 H (74-99) mg/dL Microbiology - Last 24 Hours (Table) 12/03/20 15:27 Urine Culture - Final Urine,Catheterized Klebsiella pneumoniae Escherichia coli 12/03/20 15:00 Blood Culture - Preliminary Blood No Growth after 48 hours 12/03/20 15:15 Blood Culture - Preliminary Blood No Growth after 48 hours
--- NOTE | 2020-12-06 14:40 | PN ---
PROGRESS NOTE DATE OF SERVICE: 12/06/2020 REASON FOR FOLLOWUP: Right epididymo-orchitis and UTI. INTERVAL HISTORY: Patient is currently afebrile. Patient is breathing comfortably. The patient denies having any chest pain. No shortness of breath. No cough. No nausea. No abdominal pain or discomfort to the scrotal area. PHYSICAL EXAMINATION: Blood pressure 136/87, pulse of 71, temperature 98. He is 93% on room air. General description is elderly male lying in bed in no distress. Respiratory system: Unlabored breathing. Clear to auscultation anteriorly. Heart S1, S2. Regular rate and rhythm. Abdomen soft, no tenderness. LABS: Urine has been finalized with Klebsiella and E coli sensitive to Cipro. White count has normalized. Creatinine 0.4. DIAGNOSTIC IMPRESSION AND PLAN: Patient with right-sided epididymal orchitis with urinary tract infection, risk factor being his self catheterization. Patient overall improvement on cefepime. Finish therapy with oral Cipro. Prescription sent to pharmacy. Close outpatient followup. MMODL / IJN: [id number] /
--- NOTE | 2020-12-06 21:28 | P.DS ---
Providers Date of admission: 12/03/20 17:24 Attending physician: John Jean-Baptiste Consults: 12/03/20 17:40 Consult Physician Routine Consulting Provider: Johnny Felder Consult Reason/Comments: Orchitis; sepsis Do you want consulting provider notified?: Already Contacted 12/04/20 11:22 Consult Physician Routine Consulting Provider: Carmina Bueno Consult Reason/Comments: uti Do you want consulting provider notified?: Yes Primary care physician: Rip Baez [facility] Course: Diagnoses: Right orchitis Acute urinary tract infection Since sepsis with leukocytosis and fever present on admission. Secondary to above. Resolved upon discharge Hyperlipidemia History of GERD Hypertension Diabetic neuropathy History of anxiety, not an active issue BPH History of a neurogenic bladder secondary to stroke in 2019 as per patient status post self catheterization history of strokes 2 years ago with bilateral lower extremity weakness, sometimes he uses a walker as per patient Hospital course: This is a pleasant 69-year-old patient who follows Dr. Baez. Chronic stable medical conditions include osteoarthritis, anxiety, BPH, hypertension,. Patient is pulse code stroke in 2019. Now uses a walker. Patient's was found to have right-sided orchitis and UTI he was treated with antibiotics. Patient has been evaluated by ID team and urological service. Patient does not need any surgical intervention and he was treated medically and responded well to therapy with antibiotic Culture came back positive for E. coli and Klebsiella pneumoniae both sensitive to many antibiotics and he was discharged on Cipro for 12 days per infectious disease team On the day of discharge patient right testicular infection significantly improved, with very minimal redness, no swelling or tenderness. No urinary symptoms. Patient denies any other symptoms. No chest pain or dyspnea or change in urine or bowel habits. No fever. Neves catheter was discontinued per urology's recommendation and self-catheter ization resumed Patient offered physical therapy [facility] patient declined and he wants to go home. at bedside and they agreed with the management plan discussed with him Problems and management plan were discussed with the patient and he verbalized understanding and acceptance Patient was found stable and can be discharged home however he needs follow-up as an outpatient. Patient was instructed to follow up with PCP Dr. Baez within one week and patient agrees Patient was instructed to follow up with urologist and infectious disease team Dr. paez in 1-2 weeks and he agrees Physical exam Gen: patient is a AAOx3, no distress CVS: S1-S2, RRR, no murmur Lungs: B/L CTA, no wheezing -Abdomen: soft, no distention, no tenderness, positive bowel sounds. Right testicle only minimally rate no tenderness or swelling Extremity: no leg edema or induration. Time spent more than 35 minutes Patient Condition at Discharge: Good Plan - Discharge Summary Discharge Rx Participant: No New Discharge Prescriptions: New Ciprofloxacin HCl [Cipro] 500 mg PO Q12H 12 Days #24 tab Continue Losartan Potassium 100 mg PO DAILY ALPRAZolam [Xanax] 0.25 mg PO TID PRN PRN Reason: Anxiety Tamsulosin HCl [Flomax] 0.4 mg PO DAILY Pantoprazole Sodium 40 mg PO DAILY Atorvastatin Calcium [Lipitor] 80 mg PO W/SUPPER Aspirin EC [Ecotrin] 325 mg PO DAILY Gabapentin 300 mg PO TID traMADol HCl [Ultram] 50 mg PO BID PRN PRN Reason: Pain Multivitamins, Thera [Multivitamin (formulary)] 1 tab PO DAILY Testosterone [Androgel 1% Gel Packet] 1 packet TOPICAL DAILY Finasteride [Proscar] 5 mg PO DAILY Discontinued amLODIPine [Norvasc] 5 mg PO BID-W/MEALS Naproxen 500 mg PO HS Discharge Medication List Losartan Potassium 100 mg PO DAILY 12/11/15 [History] ALPRAZolam [Xanax] 0.25 mg PO TID PRN 12/08/19 [History] Atorvastatin Calcium [Lipitor] 80 mg PO W/SUPPER 12/08/19 [History] Pantoprazole Sodium 40 mg PO DAILY 12/08/19 [History] Tamsulosin HCl [Flomax] 0.4 mg PO DAILY 12/08/19 [History] Aspirin EC [Ecotrin] 325 mg PO DAILY 12/03/20 [History] Finasteride [Proscar] 5 mg PO DAILY 12/03/20 [History] Gabapentin 300 mg PO TID 12/03/20 [History] Multivitamins, Thera [Multivitamin (formulary)] 1 tab PO DAILY 12/03/20 [History] Testosterone [Androgel 1% Gel Packet] 1 packet TOPICAL DAILY 12/03/20 [History] traMADol HCl [Ultram] 50 mg PO BID PRN 12/03/20 [History] Ciprofloxacin HCl [Cipro] 500 mg PO Q12H 12 Days #24 tab 12/06/20 [Rx] Follow up Appointment(s)/Referral(s): Rip Baez DO [Primary Care Provider] - 1-2 days (The office will call you with appointment time and date.) Johnny Felder MD [STAFF PHYSICIAN] - 12/20/20 10:00 am Carmina Bueno MD [STAFF PHYSICIAN] - 12/12/20 1:15 pm Patient Instructions/Handouts: Ciprofloxacin (By mouth), Urinary Tract Infection in Men (DC), Heart Healthy Diet (DC), How to Catheterize Yourself (Man) (GEN), Catheter-associated Urinary Tract Infection (DC) Activity/Diet/Wound Care/Special Instructions: Heart healthy diet Activity is restricted till you see your doctor May discontinue Neves catheter and continuous and intermittent catheterization [facility] Discharge Disposition: HOME WITH HOME HEALTH SERVICES
== END 2020-12-06 15:46 | disposition home health service (06) | DRG 698 ==
LOC: EC 13:49 → 5NMEDONC 17:24
PROVIDERS: ADMIT Hospitalist; ATTEND Hospitalist
DX: T83.518A Infection and inflammatory reaction due to other urinary catheter, initial encounter (principal); A41.9 Sepsis, unspecified organism; G82.20 Paraplegia, unspecified; Z16.24 Resistance to multiple antibiotics; Z20.822 Contact with and (suspected) exposure to COVID-19; N45.3 Epididymo-orchitis; Z79.82 Long term (current) use of aspirin; N40.0 Benign prostatic hyperplasia without lower urinary tract symptoms; N31.9 Neuromuscular dysfunction of bladder, unspecified; Z87.440 Personal history of urinary (tract) infections; Z86.73 Personal history of transient ischemic attack (TIA), and cerebral infarction without residual deficits; Z83.3 Family history of diabetes mellitus; Z82.49 Family history of ischemic heart disease and other diseases of the circulatory system; Z79.899 Other long term (current) drug therapy; N30.90 Cystitis, unspecified without hematuria; M19.90 Unspecified osteoarthritis, unspecified site; F41.9 Anxiety disorder, unspecified; E78.5 Hyperlipidemia, unspecified; E11.40 Type 2 diabetes mellitus with diabetic neuropathy, unspecified; I10 Essential (primary) hypertension; N45.2 Orchitis; B96.20 Unspecified Escherichia coli [E. coli] as the cause of diseases classified elsewhere; B96.1 Klebsiella pneumoniae [K. pneumoniae] as the cause of diseases classified elsewhere; K21.9 Gastro-esophageal reflux disease without esophagitis; J40 Bronchitis, not specified as acute or chronic
CPT/HCPCS: 36415; 76870; 80048; 80053; 81001; 83605; 85025; 85610; 85730; 87040; 87077; 87086; 87186; 87636; 93005; 93975; 99285

== ENCOUNTER 2021-01-04 15:21 | Emergency (ER) | payer MEDICARE ==
[2021-01-04 15:40] VITALS: TEMP 97.5
[2021-01-04 17:10] VITALS: BP 145/94; PULSE 68
[2021-01-04 17:16] VITALS: RESP 20
[2021-01-04] MEDS ORDERED: LIDOCAINE 1% INJ 10MG/ML (20 ML MDV) SQ ONE (17:29)
--- NOTE | 2021-01-04 17:33 | ED ---
Recheck HPI - General Source: patient, RN notes reviewed, old records reviewed Mode of arrival: wheelchair Limitations: no limitations <Meron Dash - Last Filed: 01/05/21 18:27> <Aleksandra Bangura - Last Filed: 01/07/21 00:34> - General Chief Complaint: Recheck/Abnormal Lab/Rx Stated Complaint: High BP Time Seen by Provider: 01/04/21 16:47 - History of Present Illness Initial Comments: Patient is a 70-year-old male with history of hypertension, presenting to the emergency department for elevated blood pressure. Patient states he was recently admitted to the hospital for ear infection, during his stated they took him off his blood pressure medications as his blood pressure was starting to become lower. After discharge about a week ago, they did not tell him to go back on his blood pressure medications. He has been monitoring his blood pressure over the past week and it has been going up. He was at his doctor's today and it read a very high blood pressure, he was given clonidine in the office with no significant change in the blood pressures they recommend coming into the hospital for evaluation. Patient states he feels fine, he has no headache, no blurry vision, no abdominal pain, no chest pain or shortness of breath. He has no further complaints at this time. Upon arrival to the ER, his blood pressure is 180/101, rest of vitals within normal limits. (Meron Dash) - Related Data Home Medications Medication Instructions Recorded Confirmed Losartan Potassium 100 mg PO DAILY 12/11/15 01/04/21 ALPRAZolam [Xanax] 0.25 mg PO TID PRN 12/08/19 01/04/21 Atorvastatin Calcium [Lipitor] 80 mg PO AC-SUPPER 12/08/19 01/04/21 Pantoprazole Sodium 40 mg PO DAILY 12/08/19 01/04/21 Tamsulosin HCl [Flomax] 0.4 mg PO DAILY 12/08/19 01/04/21 Aspirin EC [Ecotrin] 325 mg PO DAILY 12/03/20 01/04/21 Finasteride [Proscar] 5 mg PO DAILY 12/03/20 01/04/21 Gabapentin 300 mg PO TID 12/03/20 01/04/21 Multivitamins, Thera [Multivitamin 1 tab PO DAILY 12/03/20 01/04/21 (formulary)] Testosterone [Androgel 1% Gel 1 packet TOPICAL DAILY 12/03/20 01/04/21 Packet] traMADol HCl [Ultram] 50 mg PO BID PRN 12/03/20 01/04/21 Diclofenac Sodium Gel [Voltaren 2 - 4 gm TOPICAL QID PRN 01/04/21 01/04/21 Gel] Allergies Allergy/AdvReac Type Severity Reaction Status Date / Time morphine AdvReac Nausea & Verified 01/04/21 17:23 Vomiting Review of Systems ROS Other: All systems not noted in ROS Statement are negative. <Meron Dash - Last Filed: 01/05/21 18:27> ROS Other: All systems not noted in ROS Statement are negative. <Aleksandra Bangura - Last Filed: 01/07/21 00:34> ROS Statement: Those systems with pertinent positive or pertinent negative responses have been documented in the HPI. 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 Date of last positivie culture/infection: 12/31/19 MDRO Source:: urine Past Surgical History: No Surgical Hx Reported Additional Past Surgical History / Comment(s): kidney stone removed with stent placement, since removed; left achilles tendon repair Past Anesthesia/Blood Transfusion Reactions: No Reported Reaction Past Psychological History: No Psychological Hx Reported Smoking Status: Never smoker Past Alcohol Use History: None Reported Past Drug Use History: None Reported - Past Family History Mother Family Medical History: Congestive Heart Failure (CHF) Father Family Medical History: Diabetes Mellitus <Meron Dash - Last Filed: 01/05/21 18:27> General Exam Limitations: no limitations <Meron Dash - Last Filed: 01/05/21 18:27> - General Exam Comments Initial Comments: GENERAL: Patient is well-developed and well-nourished. Patient is nontoxic and in no acute distress. HEAD: Atraumatic, normocephalic. EYES: Pupils equal round and reactive to light, extraocular movements intact, sclera anicteric, conjunctiva are normal. Eyelids were unremarkable. ENT: Moist mucous membranes. NECK: Normal range of motion, supple without lymphadenopathy or JVD. LUNGS: Unlabored respirations. Breath sounds clear to auscultation bilaterally and equal. No wheezes rales or rhonchi. HEART: Regular rate and rhythm without murmurs, rubs or gallops. ABDOMEN: Soft, nontender, normoactive bowel sounds. No guarding, no rebound. No masses appreciated. MUSCULOSKELETAL: Normal extremities with adequate strength and normal range of motion, no pitting or edema. No clubbing or cyanosis. NEUROLOGICAL: Patient is alert and oriented x 3. SKIN: Warm, Dry, normal turgor, no rashes or lesions noted. (Meron Dash) Course Vital Signs 01/04/21 01/04/21 01/04/21 15:38 16:48 17:08 Temperature 97.5 F L Pulse Rate 82 68 Respiratory 18 20 Rate Blood Pressure 180/101 163/103 145/94 O2 Sat by Pulse 94 L 98 Oximetry Medical Decision Making <Meron Dash - Last Filed: 01/05/21 18:27> <Aleksandra Bangura - Last Filed: 01/07/21 00:34> - Medical Decision Making Patient is a 70-year-old male presenting with hypertension over the past few days. He has no symptoms, no complaints today, his exam is unremarkable. Initial blood pressure upon arrival was 180/101, was rechecked about an hour later, it dropped to 163/103, and after examining the patient, blood pressures rechecked again at 145/94. I discussed with patient that I do not want to give him any additional blood pressure medications at this time as I do not want to go to the Road. I recommended continuing in his artery prescribed blood pressure medications. He states he has been on them for the past 2 days. He can follow-up with his doctor. He is agreeable to this plan of care and he is stable for discharge. Discussed with Dr. Bangura. (Meron Dash) I was available for consultation in the emergency department. The history and physical exam were done by the midlevel provider. I was consulted for this patients care. I reviewed the case with the midlevel provider and based on their presentation of the patient, I agree with the assessment, medical decision making and plan of care as documented. Chart was dictated using [employer] dictation software. Attempts were made to correct any dictation errors however some typographical errors may persist. (Aleksandra Bangura) Disposition Is patient prescribed a controlled substance at d/c from ED?: No Time of Disposition: 17:33 <Meron Dash - Last Filed: 01/05/21 18:27> <Aleksandra Bangura - Last Filed: 01/07/21 00:34> Clinical Impression: Hypertension Disposition: HOME SELF-CARE Condition: Stable Instructions (If sedation given, give patient instructions): Hypertension (ED) Additional Instructions: Please return to the Emergency Department if symptoms worsen or any other concerns. Continue on your already prescribed medications. Follow up with your primary care physician. Referrals: Rip Baez DO [Primary Care Provider] - 1-2 days
== END 2021-01-04 17:38 | disposition home or self-care (01) ==
LOC: EC 15:21
DX: I10 Essential (primary) hypertension (principal); Z79.82 Long term (current) use of aspirin; Z79.899 Other long term (current) drug therapy; Z88.5 Allergy status to narcotic agent; Z86.73 Personal history of transient ischemic attack (TIA), and cerebral infarction without residual deficits; Z83.3 Family history of diabetes mellitus; Z82.49 Family history of ischemic heart disease and other diseases of the circulatory system
CPT/HCPCS: 99283

== ENCOUNTER 2021-11-16 20:02 | Inpatient (IN) | payer MEDICARE ==
[2021-11-16] MEDS ORDERED: SODIUM CHLORIDE 0.9% 1,000 ML IV STA ×2 (21:46)
[2021-11-16] MEDS ORDERED: ACETAMINOPHEN TAB 500 MG TAB PO STA (21:46)
[2021-11-16] MEDS ORDERED: IBUPROFEN 600 MG TAB PO STA (21:46)
[2021-11-16] MEDS ORDERED: LEVOFLOXACIN 750MG-D5W PMX 750 MG in DEXTROSE/WATER 1 150ML.BAG IVPB STA (21:47)
--- NOTE | 2021-11-16 21:48 | ED ---
Male Urogenital HPI - General Chief complaint: Urogenital Stated complaint: uti Time Seen by Provider: 11/16/21 21:46 Source: patient, family, RN notes reviewed, old records reviewed Mode of arrival: wheelchair Limitations: no limitations - History of Present Illness Initial comments: This is a 70-year-old male DF for evaluation patient Dese for dysuria scleral pain severe. Mild abdominal pain possible fever with chills. Mild sweats. No other complaints. Patient's poor story MD Complaint: dysuria -: days(s) Location: right testicle, left testicle, abdomen Radiation: none Severity: mild Severity scale (1-10): 5 Quality: aching, burning Consistency: constant Improves with: none Worsens with: urination new medication Reports: urinary retention, dysuria - Related Data Sexually active: No Home Medications Medication Instructions Recorded Confirmed Losartan Potassium 100 mg PO DAILY 12/11/15 01/04/21 ALPRAZolam [Xanax] 0.25 mg PO TID PRN 12/08/19 01/04/21 Atorvastatin Calcium [Lipitor] 80 mg PO AC-SUPPER 12/08/19 01/04/21 Pantoprazole Sodium 40 mg PO DAILY 12/08/19 01/04/21 Tamsulosin HCl [Flomax] 0.4 mg PO DAILY 12/08/19 01/04/21 Aspirin EC [Ecotrin] 325 mg PO DAILY 12/03/20 01/04/21 Finasteride [Proscar] 5 mg PO DAILY 12/03/20 01/04/21 Gabapentin 300 mg PO TID 12/03/20 01/04/21 Multivitamins, Thera [Multivitamin 1 tab PO DAILY 12/03/20 01/04/21 (formulary)] Testosterone [Androgel 1% Gel 1 packet TOPICAL DAILY 12/03/20 01/04/21 Packet] traMADol HCl [Ultram] 50 mg PO BID PRN 12/03/20 01/04/21 Diclofenac Sodium Gel [Voltaren 2 - 4 gm TOPICAL QID PRN 01/04/21 01/04/21 Gel] Allergies Allergy/AdvReac Type Severity Reaction Status Date / Time morphine AdvReac Nausea & Verified 01/04/21 17:23 Vomiting Review of Systems ROS Statement: Those systems with pertinent positive or pertinent negative responses have been documented in the HPI. ROS Other: All systems not noted in ROS Statement are negative. 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 Date of last positivie culture/infection: 12/31/19 MDRO Source:: urine Past Surgical History: No Surgical Hx Reported Additional Past Surgical History / Comment(s): kidney stone removed with stent placement, since removed; left achilles tendon repair Past Anesthesia/Blood Transfusion Reactions: No Reported Reaction Past Psychological History: No Psychological Hx Reported Smoking Status: Never smoker Past Alcohol Use History: None Reported Past Drug Use History: None Reported - Past Family History Mother Family Medical History: Congestive Heart Failure (CHF) Father Family Medical History: Diabetes Mellitus General Exam Limitations: no limitations General appearance: alert, in no apparent distress Head exam: Present: atraumatic, normocephalic, normal inspection Eye exam: Present: normal appearance, PERRL, EOMI. Absent: scleral icterus, conjunctival injection, periorbital swelling ENT exam: Present: normal exam, mucous membranes moist Neck exam: Present: normal inspection. Absent: tenderness, meningismus, lymphadenopathy Respiratory exam: Present: normal lung sounds bilaterally. Absent: respiratory distress, wheezes, rales, rhonchi, stridor Cardiovascular Exam: Present: regular rate, normal rhythm, normal heart sounds. Absent: systolic murmur, diastolic murmur, rubs, gallop, clicks GI/Abdominal exam: Present: soft, normal bowel sounds. Absent: distended, tenderness, guarding, rebound, rigid Extremities exam: Present: normal inspection, full ROM, normal capillary refill. Absent: tenderness, pedal edema, joint swelling, calf tenderness Back exam: Present: normal inspection Neurological exam: Present: alert, oriented X3, CN II-XII intact Psychiatric exam: Present: normal affect, normal mood Skin exam: Present: warm, dry, intact, normal color. Absent: rash Course Vital Signs 11/16/21 21:32 Temperature 100.5 F H Pulse Rate 117 H Respiratory 20 Rate Blood Pressure 133/84 O2 Sat by Pulse 94 L Oximetry - Reevaluation(s) Reevaluation #1: 11/16/21 22:50 Medical record is reviewed Reevaluation #2: 11/17/21 01:47 Patient has no change in symptoms here in the ER Reevaluation #3: 11/17/21 01:47 Patient family informed results questions have been answered - Consultations Consultation #1: Spoke with [facility] who to agree to admit the patient Medical Decision Making - Medical Decision Making 70 male to the emergency department for evaluation urinary tract infection despite outpatient treatment. Altered mental status dehydration. Confusion. Patient be admitted for IV antibiotics - Lab Data Result diagrams: 11/16/21 22:02 11/16/21 22:02 Lab Results 11/16/21 11/16/21 11/16/21 Range/Units 22:02 22:02 22:02 WBC 14.7 H (3.8-10.6) k/uL RBC 5.12 (4.30-5.90) m/uL Hgb 15.8 (13.0-17.5) gm/dL Hct 47.3 (39.0-53.0) % MCV 92.4 (80.0-100.0) fL MCH 30.8 (25.0-35.0) pg MCHC 33.3 (31.0-37.0) g/dL RDW 14.1 (11.5-15.5) % Plt Count 245 (150-450) k/uL MPV 7.9 Neutrophils % 82 % Lymphocytes % 9 % Monocytes % 6 % Eosinophils % 1 % Basophils % 0 % Neutrophils # 12.1 H (1.3-7.7) k/uL Lymphocytes # 1.4 (1.0-4.8) k/uL Monocytes # 0.9 (0-1.0) k/uL Eosinophils # 0.1 (0-0.7) k/uL Basophils # 0.0 (0-0.2) k/uL PT 11.0 (9.0-12.0) sec INR 1.0 (<1.2) APTT 29.1 (22.0-30.0) sec Sodium 136 L (137-145) mmol/L Potassium 3.1 L (3.5-5.1) mmol/L Chloride 95 L (98-107) mmol/L Carbon Dioxide 26 (22-30) mmol/L Anion Gap 15 mmol/L BUN 21 H (9-20) mg/dL Creatinine 0.66 (0.66-1.25) mg/dL Est GFR (CKD-EPI)AfAm >90 (>60 ml/min/1.73 sqM) Est GFR (CKD-EPI)NonAf >90 (>60 ml/min/1.73 sqM) Glucose 164 H (74-99) mg/dL Plasma Lactic Acid Caesar (0.7-2.0) mmol/L Calcium 9.3 (8.4-10.2) mg/dL Phosphorus 2.2 L (2.5-4.5) mg/dL Magnesium 1.8 (1.6-2.3) mg/dL Total Bilirubin 1.2 (0.2-1.3) mg/dL AST 37 (17-59) U/L ALT 67 H (4-49) U/L Alkaline Phosphatase 148 H (38-126) U/L Total Protein 7.0 (6.3-8.2) g/dL Albumin 4.2 (3.5-5.0) g/dL Urine Color Urine Appearance (Clear) Urine pH (5.0-8.0) Ur Specific [place] (1.001-1.035) Urine Protein (Negative) Urine Glucose (UA) (Negative) Urine Ketones (Negative) Urine Blood (Negative) Urine Nitrite (Negative) Urine Bilirubin (Negative) Urine Urobilinogen (<2.0) mg/dL Ur Leukocyte Esterase (Negative) Urine RBC (0-5) /hpf Urine WBC (0-5) /hpf Ur Squamous Epith Cells (0-4) /hpf Urine Bacteria (None) /hpf Urine Mucus (None) /hpf 11/16/21 11/17/21 Range/Units 22:02 01:02 WBC (3.8-10.6) k/uL RBC (4.30-5.90) m/uL Hgb (13.0-17.5) gm/dL Hct (39.0-53.0) % MCV (80.0-100.0) fL MCH (25.0-35.0) pg MCHC (31.0-37.0) g/dL RDW (11.5-15.5) % Plt Count (150-450) k/uL MPV Neutrophils % % Lymphocytes % % Monocytes % % Eosinophils % % Basophils % % Neutrophils # (1.3-7.7) k/uL Lymphocytes # (1.0-4.8) k/uL Monocytes # (0-1.0) k/uL Eosinophils # (0-0.7) k/uL Basophils # (0-0.2) k/uL PT (9.0-12.0) sec INR (<1.2) APTT (22.0-30.0) sec Sodium (137-145) mmol/L Potassium (3.5-5.1) mmol/L Chloride (98-107) mmol/L Carbon Dioxide (22-30) mmol/L Anion Gap mmol/L BUN (9-20) mg/dL Creatinine (0.66-1.25) mg/dL Est GFR (CKD-EPI)AfAm (>60 ml/min/1.73 sqM) Est GFR (CKD-EPI)NonAf (>60 ml/min/1.73 sqM) Glucose (74-99) mg/dL Plasma Lactic Acid Caesar 1.9 (0.7-2.0) mmol/L Calcium (8.4-10.2) mg/dL Phosphorus (2.5-4.5) mg/dL Magnesium (1.6-2.3) mg/dL Total Bilirubin (0.2-1.3) mg/dL AST (17-59) U/L ALT (4-49) U/L Alkaline Phosphatase (38-126) U/L Total Protein (6.3-8.2) g/dL Albumin (3.5-5.0) g/dL Urine Color Yellow Urine Appearance Cloudy (Clear) Urine pH 5.5 (5.0-8.0) Ur Specific [place] 1.023 (1.001-1.035) Urine Protein Trace H (Negative) Urine Glucose (UA) Negative (Negative) Urine Ketones Negative (Negative) Urine Blood Moderate H (Negative) Urine Nitrite Negative (Negative) Urine Bilirubin Negative (Negative) Urine Urobilinogen 2.0 (<2.0) mg/dL Ur Leukocyte Esterase Large H (Negative) Urine RBC 5 (0-5) /hpf Urine WBC 164 H (0-5) /hpf Ur Squamous Epith Cells <1 (0-4) /hpf Urine Bacteria Many H (None) /hpf Urine Mucus Rare H (None) /hpf - EKG Data -: EKG Interpreted by Me (EKG shows sinus [id number] RI 156 QRS 109 QTc 414) - Radiology Data Radiology results: report reviewed (Status ultrasound shows significant orchitis), image reviewed Disposition Clinical Impression: Urinary tract infection, Orchitis, right Disposition: ADMITTED IP TO THIS HOSP Condition: Fair Is patient prescribed a controlled substance at d/c from ED?: No Referrals: Rip Baez DO [Primary Care Provider] - 1-2 days Time of Disposition: 01:50
[2021-11-16 22:22] LABS: Basophils % (A) 0 %; Eosinophils # (A) 0.1 k/uL (0-0.7); Eosinophils % (A) 1 %; HCT 47.3 % (39.0-53.0); HGB 15.8 gm/dL (13.0-17.5); Lymphocytes # (A) 1.4 k/uL (1.0-4.8); Lymphocytes % (A) 9 %; MCH 30.8 pg (25.0-35.0); MCHC 33.3 g/dL (31.0-37.0); MCV 92.4 fL (80.0-100.0); Mean Platelet Volume 7.9; Monocytes # (A) 0.9 k/uL (0-1.0); Monocytes % (A) 6 %; Neutrophils # (A) 12.1 k/uL (1.3-7.7); Neutrophils % (A) 82 %; Platelet Count 245 k/uL (150-450); RBC 5.12 m/uL (4.30-5.90); RDW 14.1 % (11.5-15.5); WBC 14.7 k/uL (3.8-10.6)
[2021-11-16 22:36] LABS: Partial Thromboplastin Time 29.1 sec (22.0-30.0)
[2021-11-16 22:38] LABS: ALT 67 U/L (4-49); AST 37 U/L (17-59); African American GFR (CKD) >90 (>60 ml/min/1.73 sqM); Albumin 4.2 g/dL (3.5-5.0); Alkaline Phosphatase 148 U/L (38-126); Anion Gap 15 mmol/L; Blood Urea Nitrogen 21 mg/dL (9-20); Calcium 9.3 mg/dL (8.4-10.2); Carbon Dioxide 26 mmol/L (22-30); Chloride 95 mmol/L (98-107); Glucose 164 mg/dL (74-99); Magnesium 1.8 mg/dL (1.6-2.3); Non-African American GFR(CKD) >90 (>60 ml/min/1.73 sqM); Phosphorus 2.2 mg/dL (2.5-4.5); Potassium 3.1 mmol/L (3.5-5.1); Sodium 136 mmol/L (137-145); Total Bilirubin 1.2 mg/dL (0.2-1.3)
[2021-11-16] MEDS ORDERED: POTASSIUM BICARBONATE/CIT AC 20 MEQ TABLET.EFF PO STA ×2 (23:32)
--- NOTE | 2021-11-17 01:02 | US ---
EXAMINATION TYPE: US scrotum with doppler. Grayscale and color Doppler Duplex imaging performed of [place] ju[place] scrotum. DATE OF EXAM: 11/17/2021 COMPARISON: NONE CLINICAL HISTORY: pain, swelling, redness of right testicle EXAM MEASUREMENTS: TESTICLES: Right Testicle: 3.6 x 3.7 x 2.4 cm Left Testicle: 4.4 x 3.4 x 2.9 cm EPIDIDYMIS HEAD: Right Epididymis: 1.2 cm Left Epididymis: 1.3 cm Doppler performed to assess for testicular vascularity; good bilateral color flow and waveforms are s een. There is no evidence of testicular torsion. Presence of hydroceles: septated right hydrocele measuring 3.7 x 2.8 x 2.8cm Grossly heterogeneous right testicle with increased vascularity. IMPRESSION: Heterogeneous echogenicity in the right testicle that could relate to a tumor or severe orchitis. No evidence of torsion. Large right hydrocele. Follow-up is recommended.
[2021-11-17 01:21] LABS: Appearance,Urine Cloudy (Clear); Bacteria,Urine Many /hpf; Bilirubin,Urine Negative (Negative); Blood,Urine Moderate (Negative); Color,Urine Yellow; Glucose,Urine (UA) Negative (Negative); Ketones,Urine Negative (Negative); Leukocyte Esterase,Urine Large (Negative); Mucus,Urine Rare /hpf; Nitrite,Urine Negative (Negative); PH, Urine 5.5 (5.0-8.0); Protein,Urine Trace (Negative); RBC,Urine 5 /hpf (0-5); Specific Gravity,Urine 1.023 (1.001-1.035); Squamous Epithelial Cell,Urine <1 /hpf (0-4); WBC,Urine 164 /hpf (0-5)
[2021-11-17] MEDS ORDERED: ONDANSETRON 4 MG/2 ML VIAL IVP PRN (01:45)
[2021-11-17] MEDS ORDERED: NALOXONE 0.4 MG/ML 1 ML VIAL IV PRN (01:45)
[2021-11-17] MEDS: SODIUM CHLORIDE 0.9% 1,000 ML IV SCH ×4 (09:51→23:24)
[2021-11-17] MEDS: PIPERACILLIN-TAZOBACTAM 3.375 GM in SODIUM CHLORIDE 0.9% 100 ML IVPB SCH ×2 (12:18→19:37)
[2021-11-17] MEDS ORDERED: PANTOPRAZOLE 40 MG TABLET PO PRN (12:39)
[2021-11-17] MEDS ORDERED: ALPRAZolam 0.25 MG TAB PO PRN (12:39)
[2021-11-17] MEDS: LOSARTAN 50 MG TAB PO SCH (14:49)
[2021-11-17] MEDS: TAMSULOSIN 0.4 MG CAP.ER.24H PO SCH (14:50)
[2021-11-17] MEDS: FINASTERIDE 5 MG TAB PO SCH (14:50)
[2021-11-17] MEDS: GABAPENTIN 300 MG CAP PO SCH ×2 (14:54→20:35)
[2021-11-17] MEDS: ATORVASTATIN 80 MG TAB PO SCH (17:24)
[2021-11-17] MEDS ORDERED: LEVOFLOXACIN 500MG-D5W PMX 500 MG in DEXTROSE/WATER 1 100ML.BAG IVPB SCH (22:00)
--- NOTE | 2021-11-17 22:14 | P.HPIM ---
History of Present Illness H&P Date: 11/17/21 Chief Complaint: Fever This is a pleasant 70-year-old patient who follows Dr. Baez. Chronic stable medical conditions include osteoarthritis, anxiety, BPH, hypertension, stroke in 2019.uses a walker. He has numbness in the right leg below the knee downwards and in the left leg in the ankle and the foot. Has partial bowel movement control. - self bladder catheterization 4 times a day. history of recurrent UTIs. Patient started having fever yesterday. Has noticed discomfort pain tenderness in the right testicle for 3 days. Increasing in size. Appetite is fair. Some discomfort in urination. Had a fever on presentation. Some of the bedside. Review of systems: GEN.: Tired, fever EYES: None HEENT: None NECK: None RESPIRATORY: None CARDIOVASCULAR: None GASTROINTESTINAL: Partial bowel movement control GENITOURINARY: As above MUSCULOSKELETAL: None LYMPHATICS: None HEMATOLOGICAL: None PSYCHIATRY: None NEUROLOGICAL: Weakness in lower extremity and numbness Past medical history to include: Spinal cord stroke in 2019, causing lower extremity weakness, bladder dysfunction, osteoarthritis, anxiety, hypertension, peripheral neuropathy Social history: . No history of smoking and alcohol. Family history: CHF Physical examination: VITAL SIGNS: 100.5, 117, 20, 133/84, 94% room air GENERAL: BMI 31, reclining in bed, tired EYES: Pupils equal. Conjunctiva normal. HEENT: External appearance of nose and ears normal, oral cavity grossly normal. NECK: JVD not raised; masses not palpable. HEART: First and second heart sounds are normal; no edema. LUNGS: Respiratory rate normal; clear to auscultation. ABDOMEN: Soft, nontender, liver spleen not palpable, no masses palpable. Right scrotum swollen with tenderness. PSYCH: Alert and oriented x3; mood and affect normal. NEUROLOGICAL: [Cranial nerves grossly intact; no facial asymmetry, decreased power bilateral lower extremity. Decreased sensation LYMPHATICS: No lymph nodes palpable in the axilla and neck INVESTIGATIONS, reviewed in the clinical context: WBC 14.7 hemoglobin 15.8 platelets 245 sodium 136 potassium 3.1 BUN 21 creatinine 0.66 UA positive for leukoesterase, WBC nitrite negative bacteria many EKG tracing personally reviewed by me-sinus tachycardia. Ultrasound testicle: Heterogeneous echogenicity in the right testicle that could relate to tumor/severe orchitis. No torsion. Large right hydrocele. Assessment and plan: -Acute UTI with cystitis secondary to Neves catheter. Patient does self- catheterization. IV Zosyn. Urine culture. -Sepsis from UTI cystitis. -Acute right orchitis. IV Zosyn. Elevation and support of scrotum. -Hyperlipidemia Lipitor 80 mg daily at bedtime -Anxiety not otherwise specified Xanax 0.25 by mouth 3 times a day when necessary -GERD Protonix 40 mg by mouth daily -Essential hypertension hold amlodipine losartan 100 mg daily -Peripheral neuropathy Gabapentin 300 mg 3 times a day -Large right hydrocele -BPH Proscar 5 mg daily, Flomax 0.4 mg daily -Neurogenic bladder from spinal cord stroke Patient does self-catheterization IV Zosyn. IV fluid. Resume home medications. Hold amlodipine. Elevated scrotum with support. Consult urology. 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 Date of last positivie culture/infection: 12/31/19 MDRO Source:: urine Past Surgical History: No Surgical Hx Reported Additional Past Surgical History / Comment(s): kidney stone removed with stent placement, since removed; left achilles tendon repair Past Anesthesia/Blood Transfusion Reactions: No Reported Reaction Past Psychological History: No Psychological Hx Reported Smoking Status: Never smoker Past Alcohol Use History: None Reported Past Drug Use History: None Reported - Past Family History Mother Family Medical History: Congestive Heart Failure (CHF) Father Family Medical History: Diabetes Mellitus Medications and Allergies Home Medications Medication Instructions Recorded Confirmed Type Losartan Potassium 100 mg PO DAILY 12/11/15 11/17/21 History ALPRAZolam [Xanax] 0.25 mg PO TID PRN 12/08/19 11/17/21 History Atorvastatin Calcium [Lipitor] 80 mg PO AC-SUPPER 12/08/19 11/17/21 History Pantoprazole Sodium 40 mg PO DAILY PRN 12/08/19 11/17/21 History Tamsulosin HCl [Flomax] 0.4 mg PO DAILY 12/08/19 11/17/21 History Aspirin EC [Ecotrin] 325 mg PO DAILY 12/03/20 11/17/21 History Finasteride [Proscar] 5 mg PO DAILY 12/03/20 11/17/21 History Gabapentin 300 mg PO TID 12/03/20 11/17/21 History Testosterone [Androgel 1% Gel 1 packet TOPICAL DAILY 12/03/20 11/17/21 History Packet] traMADol HCl [Ultram] 50 mg PO BID PRN 12/03/20 11/17/21 History Chlorthalidone 25 mg PO DAILY 11/17/21 11/17/21 History Potassium Chloride ER [K-Dur 20] 20 meq PO HS 11/17/21 11/17/21 History Potassium Chloride ER [K-Dur 20] 40 meq PO DAILY 11/17/21 11/17/21 History amLODIPine [Norvasc] 5 mg PO BID 11/17/21 11/17/21 History Allergies Allergy/AdvReac Type Severity Reaction Status Date / Time morphine AdvReac Nausea & Verified 11/17/21 11:42 Vomiting Physical Exam Vitals: Vital Signs Temp Pulse Pulse Resp BP BP Pulse Ox 11/17/21 08:00 97.5 F L 68 17 106/73 96 11/17/21 04:11 97.8 F 11/17/21 02:11 84 18 116/80 97 11/16/21 21:32 100.5 F H 117 H 20 133/84 94 L Intake and Output 11/16/21 11/17/21 11/17/21 22:59 06:59 14:59 Output Total 100 Balance -100 Output: Urine 100 Straight 100 Other: Weight 95.254 kg 95.254 kg Results CBC & Chem 7: 11/16/21 22:02 11/16/21 22:02 Labs: Abnormal Lab Results - Last 24 Hours (Table) 11/16/21 11/16/21 11/17/21 Range/Units 22:02 22:02 01:02 WBC 14.7 H (3.8-10.6) k/uL Neutrophils # 12.1 H (1.3-7.7) k/uL Sodium 136 L (137-145) mmol/L Potassium 3.1 L (3.5-5.1) mmol/L Chloride 95 L (98-107) mmol/L BUN 21 H (9-20) mg/dL Glucose 164 H (74-99) mg/dL Phosphorus 2.2 L (2.5-4.5) mg/dL ALT 67 H (4-49) U/L Alkaline Phosphatase 148 H (38-126) U/L Urine Protein Trace H (Negative) Urine Blood Moderate H (Negative) Ur Leukocyte Esterase Large H (Negative) Urine WBC 164 H (0-5) /hpf Urine Bacteria Many H (None) /hpf Urine Mucus Rare H (None) /hpf Microbiology - Last 24 Hours (Table) 11/17/21 01:02 Urine Culture - Preliminary Urine,Voided Thrombosis Risk Factor Assmnt - Choose All That Apply Each Risk Factor Represents 2 Points: Age 61-74 years Thrombosis Risk Factor Assessment Total Risk Factor Score: 2 Thrombosis Risk Factor Assessment Level: Low Risk
[2021-11-18] MEDS: PIPERACILLIN-TAZOBACTAM 3.375 GM in SODIUM CHLORIDE 0.9% 100 ML IVPB SCH ×3 (04:09→20:35)
--- NOTE | 2021-11-18 08:04 | P.GSCN ---
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 Presented to the hospital with right testicular pain and dysuria. He indicated the pain has been present for the past 24-48 hours, has progressively gotten worse. He was admitted to the hospital yesterday, started on IV antibiotics. On presentation urinalysis was concerning for UTI, and he did have leukocytosis at 14.7. He denies any fevers or chills. Denies any flank pain or gross hematuria. Underwent a scrotal ultrasound that showed evidence of right-sided orchitis. He indicated this morning the pain has significantly improved but still having persistent swelling. Review of Systems - Constitutional Denies fever, Denies weight loss - EENT Ears, nose, mouth and throat: Denies dysphagia - Cardiovascular Denies chest pain, Denies shortness of breath - Respiratory Denies cough, Denies 7 - Gastrointestinal Reports as per HPI, Denies nausea, Denies vomiting - Genitourinary Reports dysuria, Reports testicular pain, Denies flank pain - Neurological Denies headaches, Denies syncope - Hematologic/Lymphatic Denies easy bleeding, Denies easy bruising 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 Year Discovered:: 12/31/19 MDRO Source:: urine Past Surgical History: No Surgical Hx Reported Additional Past Surgical History / Comment(s): kidney stone removed with stent placement, since removed; left achilles tendon repair Past Anesthesia/Blood Transfusion Reactions: No Reported Reaction Past Psychological History: No Psychological Hx Reported Smoking Status: Never smoker Past Alcohol Use History: None Reported Past Drug Use History: None Reported - Past Family History Mother Family Medical History: Congestive Heart Failure (CHF) Father Family Medical History: Diabetes Mellitus Medications and Allergies Home Medications Medication Instructions Recorded Confirmed Type Losartan Potassium 100 mg PO DAILY 12/11/15 11/17/21 History ALPRAZolam [Xanax] 0.25 mg PO TID PRN 12/08/19 11/17/21 History Atorvastatin Calcium [Lipitor] 80 mg PO AC-SUPPER 12/08/19 11/17/21 History Pantoprazole Sodium 40 mg PO DAILY PRN 12/08/19 11/17/21 History Tamsulosin HCl [Flomax] 0.4 mg PO DAILY 12/08/19 11/17/21 History Aspirin EC [Ecotrin] 325 mg PO DAILY 12/03/20 11/17/21 History Finasteride [Proscar] 5 mg PO DAILY 12/03/20 11/17/21 History Gabapentin 300 mg PO TID 12/03/20 11/17/21 History Testosterone [Androgel 1% Gel 1 packet TOPICAL DAILY 12/03/20 11/17/21 History Packet] traMADol HCl [Ultram] 50 mg PO BID PRN 12/03/20 11/17/21 History Chlorthalidone 25 mg PO DAILY 11/17/21 11/17/21 History Potassium Chloride ER [K-Dur 20] 20 meq PO HS 11/17/21 11/17/21 History Potassium Chloride ER [K-Dur 20] 40 meq PO DAILY 11/17/21 11/17/21 History amLODIPine [Norvasc] 5 mg PO BID 11/17/21 11/17/21 History Allergies Allergy/AdvReac Type Severity Reaction Status Date / Time morphine AdvReac Nausea & Verified 11/17/21 11:42 Vomiting Surgical - Exam Vital Signs Temp Pulse Resp BP Pulse Ox 100.5 F H 117 H 20 133/84 94 L 11/16/21 21:32 11/16/21 21:32 11/16/21 21:32 11/16/21 21:32 11/16/21 21:32 - General no distress, no pain - Eyes normal ocular movement, no pale - ENT normal nares, normal mucosa - Respiratory normal expansion, normal respiratory effort - Abdomen Abdomen: soft, non tender, no distended - Genitourinary Right testicle swollen, tender, indurated. No fluctuance appreciated, no scrotal cellulitis. normal penis with no external lesions - Psychiatric oriented to time, oriented to person, oriented to place Results - Labs 11/16/21 22:02 11/16/21 22:02 Microbiology - Last 24 Hours (Table) 11/16/21 21:45 Blood Culture - Preliminary Blood No Growth after 24 hours 11/16/21 22:02 Blood Culture - Preliminary Blood No Growth after 24 hours 11/17/21 01:02 Urine Culture - Preliminary Urine,Voided Assessment and Plan Assessment: 70-year-old male admitted to the hospital with UTI and right-sided orchitis. History of chronic retention be managed with CIC. Currently on IV antibiotics, he indicated right testicle pain has improved since admission. On exam consistent with orchitis. Scrotal ultrasound consistent with orchitis. No evidence of scrotal abscess on ultrasound or on exam. -Follow up on urine culture, recommend keeping in the hospital until culture has finalized. We'll need a minimum of 14 days of antibiotics -Continue CIC
[2021-11-18] MEDS: TAMSULOSIN 0.4 MG CAP.ER.24H PO SCH (08:32)
[2021-11-18] MEDS: GABAPENTIN 300 MG CAP PO SCH ×3 (08:32→20:36)
[2021-11-18] MEDS: LOSARTAN 50 MG TAB PO SCH (08:32)
[2021-11-18] MEDS: FINASTERIDE 5 MG TAB PO SCH (08:32)
[2021-11-18] MEDS: ASPIRIN 325 MG TAB PO SCH (08:32)
[2021-11-18] MEDS: SODIUM CHLORIDE 0.9% 1,000 ML IV SCH ×2 (08:33→19:48)
[2021-11-18] MEDS: TESTOSTERONE TOPICAL SCH (08:33)
[2021-11-18] MEDS: traMADol 50 MG TAB PO PRN (08:38)
[2021-11-18 09:24] LABS: Basophils # (A) 0.01 X 10*3/uL (0.00-0.10); Basophils % (A) 0.1 %; Eosinophils # (A) 0.11 X 10*3/uL (0.04-0.35); HCT 38.3 % (39.6-50.0); HGB 12.8 g/dL (13.0-17.0); Immature Grans, Automated 0.5 %; Lymphocytes # (A) 1.67 X 10*3/uL (0.90-5.00); Lymphocytes % (A) 15.5 %; MCHC 33.4 g/dL (32.0-37.0); MCV 89.9 fL (80.0-97.0); Mean Platelet Volume 10.3 fL (9.5-12.2); Monocytes # (A) 0.92 X 10*3/uL (0.20-1.00); Monocytes % (A) 8.6 %; NRBC Per 100 WBC 0 /100 WBCS (0.0-0.0); Neutrophils % (A) 74.3 %; Platelet Count 219 X 10*3/uL (140-440); RBC 4.26 X 10*6/uL (4.40-5.60); WBC 10.76 X 10*3/uL (4.50-10.00)
[2021-11-18 10:01] LABS: African American GFR (CKD) 118.1 (60.0-200.0); Albumin 3.3 g/dL (3.8-4.9); Albumin/Globulin Ratio 1.5 (1.60-3.17); Anion Gap 9.6 mmol/L (10.00-18.00); BUN/Creat Ratio 23.5 Ratio (12.00-20.00); Blood Urea Nitrogen 14.1 mg/dL (9.0-27.0); Calcium 8.4 mg/dL (8.7-10.3); Carbon Dioxide 28.4 mmol/L (20.0-27.5); Globulin 2.2 g/dL (1.6-3.3); Non-African American GFR(CKD) 101.9 (60.0-200.0); Potassium 2.8 mmol/L (3.5-5.5); Total Bilirubin 0.5 mg/dL (0.30-1.20); Total Protein 5.5 g/dL (6.2-8.2)
[2021-11-18] MEDS: POTASSIUM CHLORIDE ER 20 MEQ TAB.ER PO SCH ×2 (10:55→12:25)
--- NOTE | 2021-11-18 15:04 | P.PN ---
Progress Note - Text Progress Note Date: 11/18/21 Chief Complaint: Fever This is a pleasant 70-year-old patient who follows Dr. Baez. Chronic stable medical conditions include osteoarthritis, anxiety, BPH, hypertension, stroke in 2019.uses a walker. He has numbness in the right leg below the knee downwards and in the left leg in the ankle and the foot. Has partial bowel movement control. - self bladder catheterization 4 times a day. history of recurrent UTIs. Patient started having fever yesterday. Has noticed discomfort pain tenderness in the right testicle for 3 days. Increasing in size. Appetite is fair. Some discomfort in urination. Had a fever on presentation. Some of the bedside. Admitted with acute UTI with cystitis secondary to Neves catheter. Acute left orchitis. Started on IV Zosyn. November 18: Feeling better. Oral intake better. at the bedside. IV Zosyn. Active Medications Acetaminophen (Acetaminophen Tab 325 Mg Tab) 650 mg PO Q6HR PRN PRN Reason: Mild Pain or Fever > 100.5 Alprazolam (Alprazolam 0.25 Mg Tab) 0.25 mg PO TID PRN PRN Reason: Anxiety Last Admin: 11/17/21 20:35 Dose: 0.25 mg Aspirin (Aspirin 325 Mg Tab) 325 mg PO DAILY [facility] Last Admin: 11/18/21 08:32 Dose: 325 mg Atorvastatin Calcium (Atorvastatin 80 Mg Tab) 80 mg PO AC-SUPPER [facility] Last Admin: 11/17/21 17:24 Dose: 80 mg Finasteride (Finasteride 5 Mg Tab) 5 mg PO DAILY [facility] Last Admin: 11/18/21 08:32 Dose: 5 mg Gabapentin (Gabapentin 300 Mg Cap) 300 mg PO TID [facility] Last Admin: 11/18/21 08:32 Dose: 300 mg Sodium Chloride (Saline 0.9%) 1,000 mls @ 75 mls/hr IV .[id number] [facility] Last Admin: 11/18/21 08:33 Dose: 130 mls/hr Piperacillin Sod/Tazobactam (Sod 3.375 gm/ Sodium Chloride) 100 mls @ 25 mls/hr IVPB Q8H [facility]; Protocol Last Admin: 11/18/21 12:26 Dose: 25 mls/hr Losartan Potassium (Losartan 50 Mg Tab) 100 mg PO DAILY [facility] Last Admin: 11/18/21 08:32 Dose: 100 mg Naloxone HCl (Naloxone 0.4 Mg/Ml 1 Ml Vial) 0.2 mg IV Q2M PRN PRN Reason: Opioid Reversal Non-Formulary Medication (Testosterone [Androgel 1% Gel Packet]) 1 packet TOPICAL DAILY [facility] Last Admin: 11/18/21 08:33 Dose: Not Given Ondansetron HCl (Ondansetron 4 Mg/2 Ml Vial) 4 mg IVP Q8HR PRN PRN Reason: Nausea And Vomiting Pantoprazole Sodium (Pantoprazole 40 Mg Tablet) 40 mg PO DAILY PRN PRN Reason: Heartburn Last Admin: 11/18/21 08:32 Dose: 40 mg Tamsulosin HCl (Tamsulosin 0.4 Mg Cap.Er.24h) 0.4 mg PO DAILY [facility] Last Admin: 11/18/21 08:32 Dose: 0.4 mg Tramadol HCl (Tramadol 50 Mg Tab) 50 mg PO BID PRN PRN Reason: Pain Last Admin: 11/18/21 08:38 Dose: 50 mg Past medical history to include: Spinal cord stroke in 2019, causing lower extremity weakness, bladder dysfunction, osteoarthritis, anxiety, hypertension, peripheral neuropathy Social history: . No history of smoking and alcohol. Family history: CHF Physical examination: VITAL SIGNS: 97.9, 68, 18, 101/61, 96% room air GENERAL: Propped up in bed awake comfortable EYES: Pupils equal. Conjunctiva normal. HEENT: External appearance of nose and ears normal, oral cavity grossly normal. NECK: JVD not raised; masses not palpable. HEART: First and second heart sounds are normal; no edema. LUNGS: Respiratory rate normal; clear to auscultation. ABDOMEN: Soft, nontender, liver spleen not palpable, no masses palpable. Right scrotum swollen with tenderness. PSYCH: Alert and oriented x3; mood and affect normal. NEUROLOGICAL: [Cranial nerves grossly intact; no facial asymmetry, decreased power bilateral lower extremity. Decreased sensation INVESTIGATIONS, reviewed in the clinical context: November 18: WBC 10.7 hemoglobin 12.8 potassium 2.8 creatinine 0.6 WBC 14.7 hemoglobin 15.8 platelets 245 sodium 136 potassium 3.1 BUN 21 creatinine 0.66 UA positive for leukoesterase, WBC nitrite negative bacteria many EKG tracing personally reviewed by me-sinus tachycardia. Ultrasound testicle: Heterogeneous echogenicity in the right testicle that could relate to tumor/severe orchitis. No torsion. Large right hydrocele. Assessment and plan: -Acute UTI with cystitis secondary to Neves catheter. Patient does self- catheterization. IV Zosyn. Urine culture negative. -Sepsis from UTI cystitis.: Better -Severe hypokalemia: New diagnosis Replace potassium -Acute right orchitis. IV Zosyn. Elevation and support of scrotum. Follow with urology -Hyperlipidemia Lipitor 80 mg daily at bedtime -Anxiety not otherwise specified Xanax 0.25 by mouth 3 times a day when necessary -GERD Protonix 40 mg by mouth daily -Essential hypertension hold amlodipine losartan 100 mg daily -Peripheral neuropathy Gabapentin 300 mg 3 times a day -Large right hydrocele -BPH Proscar 5 mg daily, Flomax 0.4 mg daily -Neurogenic bladder from spinal cord stroke Patient does self-catheterization IV Zosyn. Decreased IV fluids. Urine culture negative. Feeling better. Repeat labs. Seen by urology. Possibly discharge in 24 hours.
[2021-11-18] MEDS: ATORVASTATIN 80 MG TAB PO SCH (16:03)
[2021-11-18] MEDS ORDERED: POTASSIUM CHLORIDE ER 20 MEQ TAB.ER PO ONE (18:30)
[2021-11-18] MEDS: ACETAMINOPHEN TAB 325 MG TAB PO PRN (20:35)
[2021-11-19] MEDS: ACETAMINOPHEN TAB 325 MG TAB PO PRN (03:04)
[2021-11-19] MEDS: PIPERACILLIN-TAZOBACTAM 3.375 GM in SODIUM CHLORIDE 0.9% 100 ML IVPB SCH ×2 (03:05→12:01)
[2021-11-19 03:06] VITALS: RESP 17
[2021-11-19 06:25] LABS: Basophils % (A) 0 %; Eosinophils # (A) 0.2 k/uL (0-0.7); Eosinophils % (A) 3 %; HCT 39.2 % (39.0-53.0); Lymphocytes # (A) 1.3 k/uL (1.0-4.8); Lymphocytes % (A) 18 %; MCH 30.2 pg (25.0-35.0); MCHC 32.5 g/dL (31.0-37.0); MCV 92.9 fL (80.0-100.0); Mean Platelet Volume 7.9; Monocytes # (A) 0.6 k/uL (0-1.0); Monocytes % (A) 9 %; Neutrophils # (A) 5.1 k/uL (1.3-7.7); Neutrophils % (A) 68 %; Platelet Count 230 k/uL (150-450); RBC 4.22 m/uL (4.30-5.90); WBC 7.5 k/uL (3.8-10.6)
[2021-11-19 06:27] LABS: HGB 12.7 gm/dL (13.0-17.5)
[2021-11-19 06:38] LABS: African American GFR (CKD) >90 (>60 ml/min/1.73 sqM); Anion Gap 8 mmol/L; Blood Urea Nitrogen 15 mg/dL (9-20); Calcium 8.3 mg/dL (8.4-10.2); Carbon Dioxide 29 mmol/L (22-30); Chloride 100 mmol/L (98-107); Glucose 115 mg/dL (74-99); Non-African American GFR(CKD) >90 (>60 ml/min/1.73 sqM); Potassium 3.6 mmol/L (3.5-5.1); Sodium 137 mmol/L (137-145)
[2021-11-19] MEDS: SODIUM CHLORIDE 0.9% 1,000 ML IV SCH (08:25)
[2021-11-19] MEDS: TESTOSTERONE TOPICAL SCH (08:27)
[2021-11-19] MEDS: GABAPENTIN 300 MG CAP PO SCH (08:27)
[2021-11-19] MEDS: LOSARTAN 50 MG TAB PO SCH (08:27)
[2021-11-19] MEDS: FINASTERIDE 5 MG TAB PO SCH (08:27)
[2021-11-19] MEDS: ASPIRIN 325 MG TAB PO SCH (08:27)
[2021-11-19] MEDS: TAMSULOSIN 0.4 MG CAP.ER.24H PO SCH (08:27)
[2021-11-19 08:28] VITALS: BP 122/80; PULSE 61; TEMP 97.9
[2021-11-19] MEDS: traMADol 50 MG TAB PO PRN (09:21)
--- NOTE | 2021-11-19 13:42 | P.PN ---
Progress Note - Text Progress Note Date: 11/19/21 Mr. Samaniego states that he is feeling much better. His right orchalgia has essentially resolved, and the swelling is somewhat improved. He is afebrile, and his WBC count has normalized. On examination, he appears comfortable. The testes are symmetrical in size, though the right testicle remained somewhat indurated. Urine culture shows multiple organisms. He is currently receiving Zosyn. He is urologically stable for discharge. I have placed him on ciprofloxacin for 14 days. He will follow up with Dr. Felder in approximately 2 weeks. Please notify me if we can be of any further assistance.
--- NOTE | 2021-11-21 15:31 | P.DS ---
Providers Date of admission: 11/17/21 22:14 Expected date of discharge: 11/19/21 Attending physician: John Jean-Baptiste Consults: 11/17/21 11:33 Consult Physician Routine Consulting Provider: Johnny Felder Consult Reason/Comments: orchitis Do you want consulting provider notified?: Yes Primary care physician: Rip Baez [facility] Course: Final diagnosis Acute UTI with cystitis, secondary to Neves catheter with recurrent UTI history and patient does self catheterize Sepsis from UTI cystitis, present on admission Severe hypokalemia, improved Acute right orchitis [place] hyperlipidemia history Anxiety GERD Essential hypertension peripheral neuropathy Large right hydrocele BPH neurogenic bladder from spinal cord stroke Discharge disposition Patient is being discharged in a stable condition with guarded prognosis to home. Patient will follow-up with Dr. Baez in the outpatient setting upon discharge. Patient is to continue with oral Augmentin twice daily for the next 10 days to complete the course. Patient will also follow-up with urology in the outpatient setting. Total time taken is greater than 35 minutes. Hospital course This is a 70-year-old male who was recently admitted with fevers and right testicular pain for the last 3 days that have been progressively getting worse and was being closely monitored. Patient admitted with acute UTI with cystitis and left orchitis as most likely secondary to chronic straight catheterization and recurrent UTIs. Patient was started on IV antibiotics with ID following closely along with urology and patient will follow-up outpatient with urology in the clinic. Patient will continue on oral Augmentin twice daily for the next 10 days to complete the course. Urine culture was negative. Patient reports to feeling well and would like to go home. at the bedside and verbalized understanding. Patient reports he has necessary straight catheterization supplies and will follow-up with primary care provider on discharge. Currently no reports of chest pain, shortness of breath, or palpitations. Patient is afebrile. No reports of nausea or vomiting and patient is tolerating diet. Patient will be discharged home today. Physical exam: Gen: This is a 70-year-old male awake, alert and oriented 3, well-developed, well-nourished HEENT: Head is atraumatic, normocephalic. Pupils equal, round. Sclerae is anicteric. NECK: Supple. No JVD. No lymphadenopathy. No thyromegaly. LUNGS: Clear to auscultation. No wheezes or rhonchi. No intercostal retractions. HEART: Regular rate and rhythm. No murmur. ABDOMEN: Soft. Bowel sounds are present. No masses. No tenderness. EXTREMITIES: No pedal edema. No calf tenderness. NEUROLOGICAL: Patient is awake, alert and oriented x3. Cranial nerves 2 through 12 are grossly intact. Please refer to medication reconciliation sheet for a list of medications. The impression and plan of care has been dictated by Iris Arriaga, Nurse Practitioner as directed. Dr. Tsering MD I have performed a history and examination and MDM of this patient, discussed the same with the dictator, and agree with the dictator's assessment and plan as written ,documented as a scribe. Based on total visit time, I have performed more than 50% of the visit. Patient Condition at Discharge: Good Plan - Discharge Summary New Discharge Prescriptions: New Amoxic-Pot Clav 875-125Mg [Augmentin 875-125] 1 tab PO Q12HR 10 Days #20 tab Continue Losartan Potassium 100 mg PO DAILY ALPRAZolam [Xanax] 0.25 mg PO TID PRN PRN Reason: Anxiety Tamsulosin HCl [Flomax] 0.4 mg PO DAILY Pantoprazole Sodium 40 mg PO DAILY PRN PRN Reason: Heartburn Atorvastatin Calcium [Lipitor] 80 mg PO AC-SUPPER Aspirin EC [Ecotrin] 325 mg PO DAILY Gabapentin 300 mg PO TID Potassium Chloride ER [K-Dur 20] 40 meq PO DAILY Potassium Chloride ER [K-Dur 20] 20 meq PO HS traMADol HCl [Ultram] 50 mg PO BID PRN PRN Reason: Pain Testosterone [Androgel 1% Gel Packet] 1 packet TOPICAL DAILY Finasteride [Proscar] 5 mg PO DAILY Discontinued Chlorthalidone 25 mg PO DAILY amLODIPine [Norvasc] 5 mg PO BID Discharge Medication List Losartan Potassium 100 mg PO DAILY 12/11/15 [History] ALPRAZolam [Xanax] 0.25 mg PO TID PRN 12/08/19 [History] Atorvastatin Calcium [Lipitor] 80 mg PO AC-SUPPER 12/08/19 [History] Pantoprazole Sodium 40 mg PO DAILY PRN 12/08/19 [History] Tamsulosin HCl [Flomax] 0.4 mg PO DAILY 12/08/19 [History] Aspirin EC [Ecotrin] 325 mg PO DAILY 12/03/20 [History] Finasteride [Proscar] 5 mg PO DAILY 12/03/20 [History] Gabapentin 300 mg PO TID 12/03/20 [History] Testosterone [Androgel 1% Gel Packet] 1 packet TOPICAL DAILY 12/03/20 [History] traMADol HCl [Ultram] 50 mg PO BID PRN 12/03/20 [History] Potassium Chloride ER [K-Dur 20] 20 meq PO HS 11/17/21 [History] Potassium Chloride ER [K-Dur 20] 40 meq PO DAILY 11/17/21 [History] Amoxic-Pot Clav 875-125Mg [Augmentin 875-125] 1 tab PO Q12HR 10 Days #20 tab 11/19/21 [Rx] Follow up Appointment(s)/Referral(s): Rip Baez DO [Primary Care Provider] - 1-2 days Johnny Felder MD [STAFF PHYSICIAN] - 1 Week Patient Instructions/Handouts: Urinary Tract Infection in Men (DC), Orchitis (GEN) Activity/Diet/Wound Care/Special Instructions: may resume normal activity as tolerated Follow-up with primary care provider on discharge Continue taking medications as prescribed Follow-up with urology in 1-2 weeks Discharge Disposition: HOME SELF-CARE
== END 2021-11-19 15:10 | disposition home or self-care (01) | DRG 872 ==
LOC: EC 20:02 → 6NMEDSUR 11-17 01:45 → OBSVTOIN 11-17 22:14
PROVIDERS: ADMIT Hospitalist; ATTEND Hospitalist
DX: A41.9 Sepsis, unspecified organism (principal); E78.5 Hyperlipidemia, unspecified; E86.0 Dehydration; E87.6 Hypokalemia; F41.9 Anxiety disorder, unspecified; G62.9 Polyneuropathy, unspecified; I10 Essential (primary) hypertension; K21.9 Gastro-esophageal reflux disease without esophagitis; M19.90 Unspecified osteoarthritis, unspecified site; N30.90 Cystitis, unspecified without hematuria; N31.9 Neuromuscular dysfunction of bladder, unspecified; I69.398 Other sequelae of cerebral infarction; G83.89 Other specified paralytic syndromes; N40.1 Benign prostatic hyperplasia with lower urinary tract symptoms; R33.8 Other retention of urine; N43.3 Hydrocele, unspecified; N45.2 Orchitis; Z79.82 Long term (current) use of aspirin; Z79.899 Other long term (current) drug therapy; Z82.49 Family history of ischemic heart disease and other diseases of the circulatory system; Z83.3 Family history of diabetes mellitus; Z87.440 Personal history of urinary (tract) infections; Z87.442 Personal history of urinary calculi
CPT/HCPCS: 36415; 76870; 80048; 80053; 81001; 83605; 83735; 84100; 84132; 85025; 85610; 85730; 87040; 87086; 93005; 93975; 96361; 96365; 96366; 99285

== ENCOUNTER → 2023-04-02 | Outpatient (CLI) | payer MEDICARE ==
--- NOTE | 2023-04-03 10:45 | US ---
EXAMINATION TYPE: US kidneys/renal and bladder DATE OF EXAM: 04/02/2023 COMPARISON: NONE CLINICAL INDICATION: Male, 72 years old with history of N31.9 NEUROMUSCULAR DYSFUNCTION OF BLADDER, U NSPEC; Difficulty urinating EXAM MEASUREMENTS: Right Kidney: 11.2 x 5.6 x 4.2 cm Left Kidney: 12.3 x 6.3 x 4.8 cm Right Kidney: no evidence of hydronephrosis Left Kidney: no evidence of hydronephrosis Bladder: appears wnl Bilateral Jets seen: no *prominent prostate impressing on to the base of the bladder = 5.8cm IMPRESSION: 1. No hydronephrosis. 2. Prostatomegaly nearly up to 6 cm with prominent impression onto the base of bladder. Correlate for symptoms/BPH.
== END | disposition home or self-care (01) ==
LOC: RADUSWWP 14:57
PROVIDERS: ATTEND Urology
DX: N40.0 Benign prostatic hyperplasia without lower urinary tract symptoms (principal); N31.9 Neuromuscular dysfunction of bladder, unspecified
CPT/HCPCS: 76770

== ENCOUNTER 2023-04-04 17:27 | Inpatient (IN) | payer MEDICARE ==
--- NOTE | 2023-04-04 18:01 | ED ---
Male Urogenital HPI - General Source: patient, RN notes reviewed Mode of arrival: ambulatory Limitations: no limitations - History of Present Illness MD Complaint: dysuria <Dottie Strauss - Last Filed: 04/04/23 18:13> - General Source: RN notes reviewed, old records reviewed Mode of arrival: ambulatory Limitations: no limitations - History of Present Illness Complaint: testicle pain, testicle swelling, dysuria -: days(s) Location: penis Severity: moderate Severity scale (1-10): 6 Quality: burning, sharp Consistency: constant Improves with: none Worsens with: none Reports: denies other symptoms <Maximiliano Beaver - Last Filed: 04/16/23 21:01> - General Chief complaint: Urogenital Stated complaint: Urogenital Time Seen by Provider: 04/04/23 17:55 - History of Present Illness Initial comments: This is a 72-year-old male who presents to the emergency department for 3 days of testicular swelling and fevers. Patient reports a history of frequent UTIs, some of which have lead to sepsis. Last year he was admitted for a UTI with sepsis, and at that time also had testicular swelling. Denies any flank pain or abdominal pain associated with this. 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 (Dottie Strauss) This is a 72-year-old male to the ER. He presents today for evaluation regards to fever abdominal pain scrotal pain and swelling. Patient does self cathete riwan (Maximiliano Beaver) - Related Data Home Medications Medication Instructions Recorded Confirmed Losartan Potassium 100 mg PO DAILY 12/11/15 04/04/23 Atorvastatin Calcium [Lipitor] 80 mg PO HS 12/08/19 04/04/23 Pantoprazole Sodium 40 mg PO DAILY 12/08/19 04/04/23 Tamsulosin HCl [Flomax] 0.4 mg PO DAILY 12/08/19 04/04/23 Aspirin EC [Ecotrin] 325 mg PO DAILY 12/03/20 04/04/23 Finasteride [Proscar] 5 mg PO DAILY 12/03/20 04/04/23 Gabapentin 300 mg PO TID 12/03/20 04/04/23 Testosterone [Androgel 1% Gel 1 packet TOPICAL DAILY 12/03/20 04/04/23 Packet] traMADol HCl [Ultram] 50 mg PO TID PRN 12/03/20 04/04/23 ALPRAZolam [Xanax] 0.25 mg PO HS 04/04/23 04/04/23 Previous Rx's Medication Instructions Recorded Cefuroxime [Ceftin] 250 mg PO BID #10 tab 04/07/23 Psyllium Husk 100% [Metamucil 6 gm PO BID packet 04/07/23 Packet] amLODIPine [Norvasc] 5 mg PO HS #0 04/07/23 Allergies Allergy/AdvReac Type Severity Reaction Status Date / Time morphine AdvReac Nausea & Verified 04/04/23 22:07 Vomiting Review of Systems ROS Other: All systems not noted in ROS Statement are negative. <Dottie Strauss - Last Filed: 04/04/23 18:13> ROS Other: All systems not noted in ROS Statement are negative. <Maximiliano Beaver - Last Filed: 04/16/23 21:01> ROS Statement: Those systems with pertinent positive or pertinent negative responses have been documented in the HPI. Past Medical History Past Medical History: CVA/TIA, Hypertension Additional Past Medical History / Comment(s): incomplete spinal cord stroke per pt, partially paralyzed waist down, stem cell therapy. 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, VRE Date of last positivie culture/infection: 12/31/19 MDRO Source:: urine Past Surgical History: No Surgical Hx Reported Additional Past Surgical History / Comment(s): kidney stone removed with stent placement, since removed; left achilles tendon repair Past Anesthesia/Blood Transfusion Reactions: No Reported Reaction Past Psychological History: No Psychological Hx Reported Smoking Status: Current every day smoker Past Alcohol Use History: None Reported Past Drug Use History: Marijuana - Past Family History Mother Family Medical History: Congestive Heart Failure (CHF) Father Family Medical History: Diabetes Mellitus <Dottie Strauss - Last Filed: 04/04/23 18:13> General Exam Limitations: no limitations <Dottie Strauss - Last Filed: 04/04/23 18:13> General appearance: alert, in no apparent distress Head exam: Present: atraumatic, normocephalic, normal inspection Eye exam: Present: normal appearance, PERRL, EOMI. Absent: scleral icterus, conjunctival injection, periorbital swelling ENT exam: Present: normal exam, mucous membranes moist Neck exam: Present: normal inspection. Absent: tenderness, meningismus, lymphadenopathy Respiratory exam: Present: normal lung sounds bilaterally. Absent: respiratory distress, wheezes, rales, rhonchi, stridor Cardiovascular Exam: Present: regular rate, normal rhythm, normal heart sounds. Absent: systolic murmur, diastolic murmur, rubs, gallop, clicks GI/Abdominal exam: Present: soft, normal bowel sounds. Absent: distended, tenderness, guarding, rebound, rigid Extremities exam: Present: normal inspection, full ROM, normal capillary refill. Absent: tenderness, pedal edema, joint swelling, calf tenderness Back exam: Present: normal inspection Neurological exam: Present: alert, oriented X3, CN II-XII intact Psychiatric exam: Present: normal affect, normal mood Skin exam: Present: warm, dry, intact, normal color. Absent: rash <Maximiliano Beaver - Last Filed: 04/16/23 21:01> - General Exam Comments Initial Comments: Visual Physical Exam Vital signs reviewed General: Well-appearing, nontoxic, no acute distress. Head: Normocephalic, atraumatic Eyes: PERRLA, EOMI ENT: Airway patent Chest: Nonlabored breathing Skin: No visual rash, normal skin tone Neuro: Alert and oriented 3 Musculoskeletal: No gross abnormalities (Dottie Strauss) Course <Maximiliano Beaver - Last Filed: 04/16/23 21:01> Vital Signs 04/04/23 04/04/23 04/04/23 17:51 21:28 22:04 Temperature 100.8 F H 98.8 F Pulse Rate 107 H 86 Respiratory 18 16 Rate Blood Pressure 123/82 99/66 O2 Sat by Pulse 97 97 Oximetry - Reevaluation(s) Reevaluation #1: 04/04/23 22:39 Medical records reviewed (Maximiliano Beaver) Reevaluation #2: 04/04/23 22:39 Patient symptoms unchanged (Maximiliano Beaver) Reevaluation #3: 04/04/23 22:39 Patient informed of results questions answered (Maximiliano Beaver) Reevaluation #4: 04/04/23 22:39 Was pt. sent in by a medical professional or institution (, [facility], [facility], urgent care, hospital, or skilled nursing...) When possible be specific @ -no Did you speak to anyone other than the patient for history (EMS, parent, family, police, friend...)? What history was obtained from this source @ -no Did you review nursing and triage notes (agree or disagree)? Why? @ -agree Are old charts reviewed (outside hosp., previous admission, EMS record, old EKG, old radiological studies, urgent care reports/EKG's, skilled nursing records)? Report findings @ -yes Differential Diagnosis (chest pain, altered mental status, abdominal pain women, abdominal pain men, vaginal bleeding, weakness, fever, dyspnea, syncope, headache, dizziness, GI bleed, back pain, seizure, CVA, palpatations, mental health, musculoskeletal)? @ -prior EKG interpreted by me (3pts min.). @ -yes X-rays interpreted by me (1pt min.). @ -no CT interpreted by me (1pt min.). @ -no U/S interpreted by me (1pt. min.). @ -Yes positive for orchitis What testing was considered but not performed or refused? (CT, X-rays, U/S, labs)? Why? @ -none What meds were considered but not given or refused? Why? @ -none Did you discuss the management of the patient with other professionals (professionals i.e. [facility], [facility], lab, RT, psych nurse, social work instructor, dialysis chief equipment technician, teacher, emergency communications officer, high risk case manager)? Give summary @ -no Was smoking cessation discussed for >3mins.? @ -no Was critical care preformed (if so, how long)? @ -yes31 Were there social determinants of health that impacted care today? How? (Homelessness, low income, unemployed, alcoholism, drug addiction, transportation, low edu. Level, literacy, decrease access to med. care, residential, rehab)? @ -none Was there de-escalation of care discussed even if they declined (Discuss DNR or withdrawal of care, Hospice)? DNR status @ -no What co-morbidities impacted this encounter? (DM, HTN, Smoking, COPD, CAD, Cancer, CVA, ARF, Chemo, Hep., AIDS, mental health diagnosis, sleep apnea, morbid obesity)? @ -none Was patient admitted / discharged? Hospital course, mention meds given and route, prescriptions, significant lab abnormalities, going to OR and other pertinent info. @ - 72 male to ER for evaluation of fever and scrotal pain. Patient has left epididymal orchitis left orchitis and UTI patient be admitted for IV antibiotic, Admitted Undiagnosed new problem with uncertain prognosis? @ -no Drug Therapy requiring intensive monitoring for toxicity (Heparin, Nitro, Insulin, Cardizem)? @ -no Were any procedures done? @ -no Diagnosis/symptom? @ -UTI epididymal orchitis, fever, sepsis Acute, or Chronic, or Acute on Chronic? @ -Acute Uncomplicated (without systemic symptoms) or Complicated (systemic symptoms)? @ -Complicated Side effects of treatment? @ -no Exacerbation, Progression, or Severe Exacerbation? @ -exacerbation Poses a threat to life or bodily function? How? (Chest pain, [place], [place], pneumonia, PE, COPD, DKA, ARF, appy, cholecystitis, CVA, Diverticulitis, Homicidal, Suicidal, threat to staff... and all critical care pts) @ -yes extremes of age (Maximiliano Beaver) Reevaluation #5: 04/04/23 22:39 Differential Fever: Pneumonia, viral URI, endocarditis, myocarditis, pericarditis, otitis, sinusitis, peritonsillar Abscess, retropharyngeal Abscess, epiglottitis, peritonitis, appendicitis, Claudia cystitis, diverticulitis, hepatitis, colitis, UTI, PID, TOA, pyelonephritis, prostatitis, epididymitis, meningitis, encephalitis, pulmonary embolism, CVA, thyroid storm, pancreatitis, adrenal crisis, cavernous sinus thrombosis, this is not meant to be an all-inclusive list. (Maximiliano Beaver) - Consultations Consultation #1: Spoke with admitting physicians who agrees to admit this patient (Maximiliano Beaver) Procedures - Sepsis Sepsis Focused Exam #1 Time Sepsis Criteria Met: 20:00 Sepsis Focused Exam Date: 04/04/23 Sepsis Focused Exam Time: 23:00 Sepsis Focused Exam Complete: Yes Vital Signs & RN Notes Reviewed: Yes Capillary Refill: < 2 Seconds: Fingers, Toes Peripheral Pulses: Normal: Radial (R), Radial (L), Posterior Tibialis (R), Posterior Tibialis (L), Dorsalis Pedis (R), Dorsalis Pedis (L) Skin Color: Normal for Patient Respiratory Exam: normal lung sounds Cardiovascular Exam: tachycardia <Maximiliano Beaver - Last Filed: 04/16/23 21:01> Medical Decision Making <Dottie Strauss - Last Filed: 04/04/23 18:13> - Lab Data Result diagrams: 04/06/23 05:51 04/06/23 05:51 - Radiology Data Radiology results: report reviewed (US left Epididimorchitis), image reviewed <Maximiliano Beaver - Last Filed: 04/16/23 21:01> - Medical Decision Making I performed the QuickNote portion of this chart. Signed Dottie Strauss PA-C. (Dottie Strauss) 72 male to ER for evaluation of fever and scrotal pain. Patient has left epididymal orchitis left orchitis and UTI patient be admitted for IV antibiotic (Maximiliano Beaver) - Lab Data Lab Results 04/04/23 04/04/23 04/04/23 Range/Units 18:30 18:30 18:30 WBC 11.6 H (3.8-10.6) k/uL RBC 5.44 (4.30-5.90) m/uL Hgb 16.9 (13.0-17.5) gm/dL Hct 50.3 (39.0-53.0) % MCV 92.6 (80.0-100.0) fL MCH 31.0 (25.0-35.0) pg MCHC 33.5 (31.0-37.0) g/dL RDW 13.5 (11.5-15.5) % Plt Count 208 (150-450) k/uL MPV 7.5 Neutrophils % 80 % Lymphocytes % 12 % Monocytes % 7 % Eosinophils % 1 % Basophils % 0 % Neutrophils # 9.3 H (1.3-7.7) k/uL Lymphocytes # 1.3 (1.0-4.8) k/uL Monocytes # 0.8 (0-1.0) k/uL Eosinophils # 0.2 (0-0.7) k/uL Basophils # 0.0 (0-0.2) k/uL Sodium 139 (137-145) mmol/L Potassium 3.2 L (3.5-5.1) mmol/L Chloride 99 (98-107) mmol/L Carbon Dioxide 30 (22-30) mmol/L Anion Gap 10 mmol/L BUN 19 (9-20) mg/dL Creatinine 0.50 L (0.66-1.25) mg/dL Est GFR (CKD-EPI)AfAm >90 (>60 ml/min/1.73 sqM) Est GFR (CKD-EPI)NonAf >90 (>60 ml/min/1.73 sqM) Glucose 117 H (74-99) mg/dL Plasma Lactic Acid Caesar (0.7-2.0) mmol/L Calcium 9.8 (8.4-10.2) mg/dL Total Bilirubin 0.8 (0.2-1.3) mg/dL AST 27 (17-59) U/L ALT 38 (4-49) U/L Alkaline Phosphatase 143 H (38-126) U/L Total Protein 7.9 (6.3-8.2) g/dL Albumin 4.5 (3.5-5.0) g/dL Urine Color Yellow Urine Appearance Cloudy (Clear) Urine pH 5.5 (5.0-8.0) Ur Specific [place] 1.022 (1.001-1.035) Urine Protein Negative (Negative) Urine Glucose (UA) Negative (Negative) Urine Ketones Negative (Negative) Urine Blood Small H (Negative) Urine Nitrite Positive (Negative) Urine Bilirubin Negative (Negative) Urine Urobilinogen <2.0 (<2.0) mg/dL Ur Leukocyte Esterase Large H (Negative) Urine RBC 54 H (0-5) /hpf Urine WBC 11 H (0-5) /hpf Ur Squamous Epith Cells <1 (0-4) /hpf Urine Bacteria Many H (None) /hpf Urine Mucus Rare H (None) /hpf 04/04/23 Range/Units 18:30 WBC (3.8-10.6) k/uL RBC (4.30-5.90) m/uL Hgb (13.0-17.5) gm/dL Hct (39.0-53.0) % MCV (80.0-100.0) fL MCH (25.0-35.0) pg MCHC (31.0-37.0) g/dL RDW (11.5-15.5) % Plt Count (150-450) k/uL MPV Neutrophils % % Lymphocytes % % Monocytes % % Eosinophils % % Basophils % % Neutrophils # (1.3-7.7) k/uL Lymphocytes # (1.0-4.8) k/uL Monocytes # (0-1.0) k/uL Eosinophils # (0-0.7) k/uL Basophils # (0-0.2) k/uL Sodium (137-145) mmol/L Potassium (3.5-5.1) mmol/L Chloride (98-107) mmol/L Carbon Dioxide (22-30) mmol/L Anion Gap mmol/L BUN (9-20) mg/dL Creatinine (0.66-1.25) mg/dL Est GFR (CKD-EPI)AfAm (>60 ml/min/1.73 sqM) Est GFR (CKD-EPI)NonAf (>60 ml/min/1.73 sqM) Glucose (74-99) mg/dL Plasma Lactic Acid Caesar 1.4 (0.7-2.0) mmol/L Calcium (8.4-10.2) mg/dL Total Bilirubin (0.2-1.3) mg/dL AST (17-59) U/L ALT (4-49) U/L Alkaline Phosphatase (38-126) U/L Total Protein (6.3-8.2) g/dL Albumin (3.5-5.0) g/dL Urine Color Urine Appearance (Clear) Urine pH (5.0-8.0) Ur Specific [place] (1.001-1.035) Urine Protein (Negative) Urine Glucose (UA) (Negative) Urine Ketones (Negative) Urine Blood (Negative) Urine Nitrite (Negative) Urine Bilirubin (Negative) Urine Urobilinogen (<2.0) mg/dL Ur Leukocyte Esterase (Negative) Urine RBC (0-5) /hpf Urine WBC (0-5) /hpf Ur Squamous Epith Cells (0-4) /hpf Urine Bacteria (None) /hpf Urine Mucus (None) /hpf Critical Care Time Critical Care Time: Yes Total Critical Care Time: 31 <Maximiliano Beaver - Last Filed: 04/16/23 21:01> Disposition <Dottie Strauss - Last Filed: 04/04/23 18:13> Is patient prescribed a controlled substance at d/c from ED?: No Time of Disposition: 21:30 <Maximiliano Beaver - Last Filed: 04/16/23 21:01> Clinical Impression: Urinary tract infection, Epididymo-orchitis, Fever, Left epididymitis, Orchitis, left Disposition: ADMITTED IP TO THIS HOSP Condition: Fair
[2023-04-04 19:00] LABS: ALT 38 U/L (4-49); AST 27 U/L (17-59); African American GFR (CKD) >90 (>60 ml/min/1.73 sqM); Albumin 4.5 g/dL (3.5-5.0); Alkaline Phosphatase 143 U/L (38-126); Anion Gap 10 mmol/L; Blood Urea Nitrogen 19 mg/dL (9-20); Calcium 9.8 mg/dL (8.4-10.2); Carbon Dioxide 30 mmol/L (22-30); Chloride 99 mmol/L (98-107); Glucose 117 mg/dL (74-99); Non-African American GFR(CKD) >90 (>60 ml/min/1.73 sqM); Potassium 3.2 mmol/L (3.5-5.1); Sodium 139 mmol/L (137-145); Total Bilirubin 0.8 mg/dL (0.2-1.3); Total Protein 7.9 g/dL (6.3-8.2)
[2023-04-04 19:05] LABS: Basophils % (A) 0 %; Eosinophils # (A) 0.2 k/uL (0-0.7); Eosinophils % (A) 1 %; HCT 50.3 % (39.0-53.0); HGB 16.9 gm/dL (13.0-17.5); Lymphocytes # (A) 1.3 k/uL (1.0-4.8); Lymphocytes % (A) 12 %; MCHC 33.5 g/dL (31.0-37.0); MCV 92.6 fL (80.0-100.0); Mean Platelet Volume 7.5; Monocytes # (A) 0.8 k/uL (0-1.0); Monocytes % (A) 7 %; Neutrophils # (A) 9.3 k/uL (1.3-7.7); Neutrophils % (A) 80 %; Platelet Count 208 k/uL (150-450); RBC 5.44 m/uL (4.30-5.90); RDW 13.5 % (11.5-15.5); WBC 11.6 k/uL (3.8-10.6)
[2023-04-04] MEDS: ACETAMINOPHEN TAB 500 MG TAB PO STA (20:10)
[2023-04-04] MEDS: IBUPROFEN 800 MG TAB PO STA (20:11)
[2023-04-04 20:59] LABS: Appearance,Urine Cloudy (Clear); Bacteria,Urine Many /hpf; Bilirubin,Urine Negative (Negative); Blood,Urine Small (Negative); Color,Urine Yellow; Glucose,Urine (UA) Negative (Negative); Ketones,Urine Negative (Negative); Leukocyte Esterase,Urine Large (Negative); Mucus,Urine Rare /hpf; Nitrite,Urine Positive (Negative); PH, Urine 5.5 (5.0-8.0); Protein,Urine Negative (Negative); RBC,Urine 54 /hpf (0-5); Specific Gravity,Urine 1.022 (1.001-1.035); Squamous Epithelial Cell,Urine <1 /hpf (0-4); Urobilinogen,Urine <2.0 mg/dL (<2.0); WBC,Urine 11 /hpf (0-5)
--- NOTE | 2023-04-04 21:20 | US ---
EXAMINATION TYPE: US scrotum with doppler. Grayscale and color Doppler Duplex imaging performed of [place] scrotum. DATE OF EXAM: 04/04/2023 COMPARISON: NONE CLINICAL INDICATION: Male, 72 years old with history of Edema left testicle ; EXAM MEASUREMENTS: TESTICLES: Right Testicle: 4.6 x 2.4 x 3.1 cm Left Testicle: 4.1 x 2.9 x 3.0 cm EPIDIDYMIS HEAD: Right Epididymis: 1 cm Left Epididymis: 2.1 cm Doppler performed to assess for testicular vascularity; good bilateral color flow and waveforms are s een. There is no evidence of testicular torsion. Presence of hydroceles: yes, complex fluid collection medial to right testicle = 3.4cm Presence of varicoceles: prominent vascularity bilaterally *Heterogeneous right testicle Heterogeneous, thickened left epididymis with increased blood flow *Increased blood flow left testicle IMPRESSION: 1. Findings on the left suggestive of epididymoorchitis. 2. Heterogeneous right testicle, nonspecific, of uncertain significance. Given the patient's age, th is most likely reflects tubular atrophy and sclerosis, versus sequela of previous infection/inflammat ion. 3. Slightly complex hydrocele medial to the right testicle. 4. Small bilateral varicoceles. RECOMMENDATION: Follow-up ultrasound in about 6-12 months.
[2023-04-04] MEDS ORDERED: ONDANSETRON 4 MG/2 ML VIAL IVP PRN (21:24)
[2023-04-04] MEDS ORDERED: MORPHINE SULFATE 4 MG/ML SYRINGE IV PRN (21:24)
[2023-04-04] MEDS ORDERED: NALOXONE 0.4 MG/ML 1 ML VIAL IV PRN (21:24)
[2023-04-04] MEDS: SODIUM CHLORIDE 0.9% 1,000 ML IV SCH (21:58)
[2023-04-04] MEDS: GABAPENTIN 300 MG CAP PO SCH (23:36)
[2023-04-04] MEDS: ATORVASTATIN 80 MG TAB PO SCH (23:36)
[2023-04-04] MEDS: POTASSIUM CHLORIDE ER 20 MEQ TAB.ER PO SCH (23:37)
[2023-04-04] MEDS: ALPRAZolam 0.25 MG TAB PO SCH (23:37)
[2023-04-04] MEDS: LEVOFLOXACIN 750MG-D5W PMX 750 MG in DEXTROSE/WATER 1 150ML.BAG IVPB ONE (23:37)
[2023-04-04] MEDS: amLODIPine 5 MG TAB PO SCH (23:39)
[2023-04-05 03:57] LABS: Basophils % (A) 0 %; Eosinophils # (A) 0.1 k/uL (0-0.7); Eosinophils % (A) 1 %; HCT 43.6 % (39.0-53.0); HGB 14.5 gm/dL (13.0-17.5); Lymphocytes # (A) 1.3 k/uL (1.0-4.8); Lymphocytes % (A) 14 %; MCH 31.2 pg (25.0-35.0); MCHC 33.1 g/dL (31.0-37.0); MCV 94.2 fL (80.0-100.0); Mean Platelet Volume 7.8; Monocytes # (A) 0.6 k/uL (0-1.0); Monocytes % (A) 7 %; Neutrophils # (A) 7.1 k/uL (1.3-7.7); Neutrophils % (A) 76 %; Platelet Count 179 k/uL (150-450); RBC 4.63 m/uL (4.30-5.90); RDW 13.8 % (11.5-15.5); WBC 9.3 k/uL (3.8-10.6)
[2023-04-05 04:30] LABS: ALT 29 U/L (4-49); AST 22 U/L (17-59); African American GFR (CKD) >90 (>60 ml/min/1.73 sqM); Albumin 3.7 g/dL (3.5-5.0); Alkaline Phosphatase 105 U/L (38-126); Anion Gap 6 mmol/L; Blood Urea Nitrogen 25 mg/dL (9-20); Calcium 8.6 mg/dL (8.4-10.2); Carbon Dioxide 30 mmol/L (22-30); Chloride 103 mmol/L (98-107); Glucose 82 mg/dL (74-99); Magnesium 1.7 mg/dL (1.6-2.3); Non-African American GFR(CKD) >90 (>60 ml/min/1.73 sqM); Phosphorus 3.8 mg/dL (2.5-4.5); Potassium 3.2 mmol/L (3.5-5.1); Sodium 139 mmol/L (137-145); Total Bilirubin 0.8 mg/dL (0.2-1.3); Total Protein 6.5 g/dL (6.3-8.2)
[2023-04-05] MEDS: PANTOPRAZOLE 40 MG/10 ML VIAL IV SCH (08:08)
[2023-04-05] MEDS: CHLORTHALIDONE 25 MG TAB PO SCH (09:26)
[2023-04-05] MEDS: LOSARTAN 50 MG TAB PO SCH (09:26)
[2023-04-05] MEDS: ASPIRIN 325 MG TAB PO SCH (09:28)
[2023-04-05] MEDS: TAMSULOSIN 0.4 MG CAP.ER.24H PO SCH (09:28)
[2023-04-05] MEDS: FINASTERIDE 5 MG TAB PO SCH (09:28)
[2023-04-05] MEDS: traMADol 50 MG TAB PO PRN (09:28)
[2023-04-05] MEDS: PSYLLIUM HUSK 100% 6 GM PACKET PO SCH (09:28)
[2023-04-05] MEDS: POTASSIUM CHLORIDE ER 20 MEQ TAB.ER PO SCH (09:28)
--- NOTE | 2023-04-05 10:23 | P.GSCN ---
History of Present Illness Consult date: 04/05/23 History of present illness: 72 yo paraplegic in the hospital for a left epididymorchitis. The has a ngb and does cic. He is known to Dr Lobo. The patient was in the hospital in the fall for the same issue. He has no fever or chills. His wbc are normal His urine is infected looking. He has been trying to walk and doing lifting with weights prior to this happening. Review of Systems All systems: negative - Constitutional Denies fever, Denies weight loss - EENT Eyes: denies blurred vision Ears, nose, mouth and throat: Denies dysphagia - Cardiovascular Denies chest pain, Denies shortness of breath - Respiratory Denies cough, Denies 7 - Gastrointestinal Reports as per HPI - Genitourinary Denies dysuria, Denies hematuria - Integumentary Denies rash, Denies unusual bruising - Neurological Denies headaches, Denies syncope - Hematologic/Lymphatic Denies easy bleeding, Denies easy bruising Past Medical History Past Medical History: CVA/TIA, Hypertension Additional Past Medical History / Comment(s): incomplete spinal cord stroke per pt, partially paralyzed waist down, stem cell therapy. 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, VRE Year Discovered:: 12/31/19 MDRO Source:: urine Past Surgical History: No Surgical Hx Reported Additional Past Surgical History / Comment(s): kidney stone removed with stent placement, since removed; left achilles tendon repair Past Anesthesia/Blood Transfusion Reactions: No Reported Reaction Past Psychological History: No Psychological Hx Reported Smoking Status: Former smoker Past Alcohol Use History: None Reported Past Drug Use History: Marijuana - Past Family History Mother Family Medical History: Congestive Heart Failure (CHF) Father Family Medical History: Diabetes Mellitus Medications and Allergies Home Medications Medication Instructions Recorded Confirmed Type Losartan Potassium 100 mg PO DAILY 12/11/15 04/04/23 History Atorvastatin Calcium [Lipitor] 80 mg PO HS 12/08/19 04/04/23 History Pantoprazole Sodium 40 mg PO DAILY 12/08/19 04/04/23 History Tamsulosin HCl [Flomax] 0.4 mg PO DAILY 12/08/19 04/04/23 History Aspirin EC [Ecotrin] 325 mg PO DAILY 12/03/20 04/04/23 History Finasteride [Proscar] 5 mg PO DAILY 12/03/20 04/04/23 History Gabapentin 300 mg PO TID 12/03/20 04/04/23 History Testosterone [Androgel 1% Gel 1 packet TOPICAL DAILY 12/03/20 04/04/23 History Packet] traMADol HCl [Ultram] 50 mg PO TID PRN 12/03/20 04/04/23 History Potassium Chloride ER [K-Dur 20] 20 meq PO HS 11/17/21 04/04/23 History Potassium Chloride ER [K-Dur 20] 40 meq PO DAILY 11/17/21 04/04/23 History Chlorthalidone [Hygroton] 25 mg PO DAILY 10/30/22 04/04/23 History amLODIPine [Norvasc] 5 mg PO BID 10/30/22 04/04/23 History ALPRAZolam [Xanax] 0.25 mg PO HS 04/04/23 04/04/23 History Allergies Allergy/AdvReac Type Severity Reaction Status Date / Time morphine AdvReac Nausea & Verified 04/04/23 22:07 Vomiting Surgical - Exam Vital Signs Temp Pulse Resp BP Pulse Ox 100.8 F H 107 H 18 123/82 97 04/04/23 17:51 04/04/23 17:51 04/04/23 17:51 04/04/23 17:51 04/04/23 17:51 - General well developed, well nourished, no distress - Eyes normal ocular movement, no icteric - ENT no hearing loss, no congestion - Neck no masses, trachea midline - Respiratory normal respiratory effort, clear to auscultation - Abdomen Abdomen: soft, non tender, no guarding, no rigid, no rebound - Genitourinary Left epididymal orchitis without evidence of abscess normal right testicle - Integumentary no rash, no abnormal pigmentation - Neurologic no disoriented, no combative - Psychiatric oriented to time, oriented to person, oriented to place, speech is normal, memory intact Results - Labs 04/05/23 03:47 04/05/23 03:47 Abnormal Lab Results - Last 24 Hours (Table) 04/04/23 04/04/23 04/04/23 Range/Units 18:30 18:30 18:30 WBC 11.6 H (3.8-10.6) k/uL Neutrophils # 9.3 H (1.3-7.7) k/uL Potassium 3.2 L (3.5-5.1) mmol/L BUN (9-20) mg/dL Creatinine 0.50 L (0.66-1.25) mg/dL Glucose 117 H (74-99) mg/dL Alkaline Phosphatase 143 H (38-126) U/L Urine Blood Small H (Negative) Ur Leukocyte Esterase Large H (Negative) Urine RBC 54 H (0-5) /hpf Urine WBC 11 H (0-5) /hpf Urine Bacteria Many H (None) /hpf Urine Mucus Rare H (None) /hpf 04/05/23 Range/Units 03:47 WBC (3.8-10.6) k/uL Neutrophils # (1.3-7.7) k/uL Potassium 3.2 L (3.5-5.1) mmol/L BUN 25 H (9-20) mg/dL Creatinine (0.66-1.25) mg/dL Glucose (74-99) mg/dL Alkaline Phosphatase (38-126) U/L Urine Blood (Negative) Ur Leukocyte Esterase (Negative) Urine RBC (0-5) /hpf Urine WBC (0-5) /hpf Urine Bacteria (None) /hpf Urine Mucus (None) /hpf Diabetes panel 04/04/23 04/05/23 Range/Units 18:30 03:47 Sodium 139 139 (137-145) mmol/L Potassium 3.2 L 3.2 L (3.5-5.1) mmol/L Chloride 99 103 (98-107) mmol/L Carbon Dioxide 30 30 (22-30) mmol/L BUN 19 25 H (9-20) mg/dL Creatinine 0.50 L 0.69 (0.66-1.25) mg/dL Glucose 117 H 82 (74-99) mg/dL Calcium 9.8 8.6 (8.4-10.2) mg/dL AST 27 22 (17-59) U/L ALT 38 29 (4-49) U/L Alkaline Phosphatase 143 H 105 (38-126) U/L Total Protein 7.9 6.5 (6.3-8.2) g/dL Albumin 4.5 3.7 (3.5-5.0) g/dL Calcium panel 04/04/23 04/05/23 Range/Units 18:30 03:47 Calcium 9.8 8.6 (8.4-10.2) mg/dL Phosphorus 3.8 (2.5-4.5) mg/dL Albumin 4.5 3.7 (3.5-5.0) g/dL Pituitary panel 04/04/23 04/05/23 Range/Units 18:30 03:47 Sodium 139 139 (137-145) mmol/L Potassium 3.2 L 3.2 L (3.5-5.1) mmol/L Chloride 99 103 (98-107) mmol/L Carbon Dioxide 30 30 (22-30) mmol/L BUN 19 25 H (9-20) mg/dL Creatinine 0.50 L 0.69 (0.66-1.25) mg/dL Glucose 117 H 82 (74-99) mg/dL Calcium 9.8 8.6 (8.4-10.2) mg/dL Adrenal panel 04/04/23 04/05/23 Range/Units 18:30 03:47 Sodium 139 139 (137-145) mmol/L Potassium 3.2 L 3.2 L (3.5-5.1) mmol/L Chloride 99 103 (98-107) mmol/L Carbon Dioxide 30 30 (22-30) mmol/L BUN 19 25 H (9-20) mg/dL Creatinine 0.50 L 0.69 (0.66-1.25) mg/dL Glucose 117 H 82 (74-99) mg/dL Calcium 9.8 8.6 (8.4-10.2) mg/dL Total Bilirubin 0.8 0.8 (0.2-1.3) mg/dL AST 27 22 (17-59) U/L ALT 38 29 (4-49) U/L Alkaline Phosphatase 143 H 105 (38-126) U/L Total Protein 7.9 6.5 (6.3-8.2) g/dL Albumin 4.5 3.7 (3.5-5.0) g/dL - Imaging Additional studies: us scrotum reviewed Assessment and Plan Assessment: Impression: Right epididymorchitis. NGB Recommendation: The patient should be on IV antibiotics. Once the cultures back he can be placed on oral antibiotics and can be discharged home. He should be on antibiotics at least 3-4 weeks. He should follow-up with
--- NOTE | 2023-04-05 15:55 | P.HPIM ---
History of Present Illness H&P Date: 04/05/23 Chief Complaint: Fever Very pleasant 72-year-old patient who follows Dr. Baez. Chronic stable medical conditions include osteoarthritis, anxiety, BPH, hypertension, stroke in 2019.uses a walker. He has numbness in the right leg below the knee downwards and in the left leg in the ankle and the foot. Has partial bowel movement control. - self bladder catheterization 4-5 times a day. history of recurrent UTIs. Uses a walker. Patient now presents to the ER with some pain discomfort in the scrotum. Also spiked a fever. Patient has been trying to bear down to have a bowel movement. Tired chills. Will start antibiotic in the ER. Urology was consulted. Patient at the bedside. No change in patient's appetite. Patient urine had become rather dark. Also complained of dysuria. Review of systems: GEN.: Tired, fever EYES: None HEENT: None NECK: None RESPIRATORY: None CARDIOVASCULAR: None GASTROINTESTINAL: Partial bowel movement control GENITOURINARY: As above MUSCULOSKELETAL: None LYMPHATICS: None HEMATOLOGICAL: None PSYCHIATRY: None NEUROLOGICAL: Weakness in lower extremity and numbness Past medical history to include: Spinal cord stroke in 2019, causing lower extremity weakness, bladder dysfunction, osteoarthritis, anxiety, hypertension, peripheral neuropathy Social history: . No history of smoking and alcohol. Does use a walker Family history: CHF Physical examination: VITAL SIGNS: 100.8, 107, 18, 123/82, 97% room air GENERAL: Laying in bed, comfortable EYES: Pupils equal. Conjunctiva normal. HEENT: External appearance of nose and ears normal, oral cavity grossly normal. NECK: JVD not raised; masses not palpable. HEART: First and second heart sounds are normal; no edema. LUNGS: Respiratory rate normal; clear to auscultation. ABDOMEN: Soft, nontender, liver spleen not palpable, no masses palpable. Right scrotum swollen with tenderness. PSYCH: Alert and oriented x3; mood and affect normal. NEUROLOGICAL: [Cranial nerves grossly intact; no facial asymmetry, decreased power bilateral lower extremity. Decreased sensation INVESTIGATIONS, reviewed in the clinical context: April 05: White count 9.3 improved to 14.5 potassium 3.2 creatinine 0.69 April 04: White count 9.6 hemoglobin 16.9 potassium 3.2 creatinine 0.5 UA: Positive for leukoesterase WBC Assessment and plan: -Acute UTI with cystitis secondary self-catheterization., Causing sepsis. Urine culture done. IV Levaquin started in the ER. -Sepsis secondary to above Levaquin. IV fluids. -Acute left epididymal -orchitis: Local support. IV Levaquin -Hyperlipidemia Lipitor 80 mg daily at bedtime -GERD Protonix 40 mg by mouth daily -Essential hypertension, blood pressure running lower side. Cut back amlodipine to once a day. Stop chlorthalidone. -Peripheral neuropathy Gabapentin 300 mg 3 times a day - hydrocele -BPH, bladder outflow obstruction Proscar 5 mg daily, Flomax 0.4 mg daily -Neurogenic bladder from spinal cord stroke Patient does self-catheterization 4-5 times a day. Urology consulted. Discussed with patient and at the bedside. Urine culture pending. Past Medical History Past Medical History: CVA/TIA, Hypertension Additional Past Medical History / Comment(s): incomplete spinal cord stroke per pt, partially paralyzed waist down, stem cell therapy. 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, VRE Date of last positivie culture/infection: 12/31/19 MDRO Source:: urine Past Surgical History: No Surgical Hx Reported Additional Past Surgical History / Comment(s): kidney stone removed with stent placement, since removed; left achilles tendon repair Past Anesthesia/Blood Transfusion Reactions: No Reported Reaction Past Psychological History: No Psychological Hx Reported Smoking Status: Former smoker Past Alcohol Use History: None Reported Past Drug Use History: Marijuana - Past Family History Mother Family Medical History: Congestive Heart Failure (CHF) Father Family Medical History: Diabetes Mellitus Medications and Allergies Home Medications Medication Instructions Recorded Confirmed Type Losartan Potassium 100 mg PO DAILY 12/11/15 04/04/23 History Atorvastatin Calcium [Lipitor] 80 mg PO HS 12/08/19 04/04/23 History Pantoprazole Sodium 40 mg PO DAILY 12/08/19 04/04/23 History Tamsulosin HCl [Flomax] 0.4 mg PO DAILY 12/08/19 04/04/23 History Aspirin EC [Ecotrin] 325 mg PO DAILY 12/03/20 04/04/23 History Finasteride [Proscar] 5 mg PO DAILY 12/03/20 04/04/23 History Gabapentin 300 mg PO TID 12/03/20 04/04/23 History Testosterone [Androgel 1% Gel 1 packet TOPICAL DAILY 12/03/20 04/04/23 History Packet] traMADol HCl [Ultram] 50 mg PO TID PRN 12/03/20 04/04/23 History Potassium Chloride ER [K-Dur 20] 20 meq PO HS 11/17/21 04/04/23 History Potassium Chloride ER [K-Dur 20] 40 meq PO DAILY 11/17/21 04/04/23 History Chlorthalidone [Hygroton] 25 mg PO DAILY 10/30/22 04/04/23 History amLODIPine [Norvasc] 5 mg PO BID 10/30/22 04/04/23 History ALPRAZolam [Xanax] 0.25 mg PO HS 04/04/23 04/04/23 History Allergies Allergy/AdvReac Type Severity Reaction Status Date / Time morphine AdvReac Nausea & Verified 04/04/23 22:07 Vomiting Physical Exam Vitals: Vital Signs Temp Pulse Pulse Resp BP BP BP 04/05/23 07:04 97.8 F 63 18 99/69 04/05/23 03:02 95/58 04/05/23 02:27 97.6 F 68 21 04/04/23 23:39 105/64 04/04/23 22:54 97.9 F 82 20 95/64 04/04/23 22:04 86 16 99/66 04/04/23 21:28 98.8 F 04/04/23 17:51 100.8 F H 107 H 18 123/82 Pulse Ox 04/05/23 07:04 98 04/05/23 03:02 04/05/23 02:27 97 04/04/23 23:39 04/04/23 22:54 97 04/04/23 22:04 97 04/04/23 21:28 04/04/23 17:51 97 Intake and Output 04/04/23 04/05/23 04/05/23 22:59 06:59 14:59 Intake Total 900 Output Total 1050 Balance -150 Intake: Oral 900 Output: Urine 1050 Straight 300 Other: Voiding Method Self-Catheterization Self-Catheterization # Bowel Movements 7 1 Weight 90.718 kg 90.718 kg Results CBC & Chem 7: 04/05/23 03:47 04/05/23 03:47 Labs: Abnormal Lab Results - Last 24 Hours (Table) 04/04/23 04/04/23 04/04/23 Range/Units 18:30 18:30 18:30 WBC 11.6 H (3.8-10.6) k/uL Neutrophils # 9.3 H (1.3-7.7) k/uL Potassium 3.2 L (3.5-5.1) mmol/L BUN (9-20) mg/dL Creatinine 0.50 L (0.66-1.25) mg/dL Glucose 117 H (74-99) mg/dL Alkaline Phosphatase 143 H (38-126) U/L Urine Blood Small H (Negative) Ur Leukocyte Esterase Large H (Negative) Urine RBC 54 H (0-5) /hpf Urine WBC 11 H (0-5) /hpf Urine Bacteria Many H (None) /hpf Urine Mucus Rare H (None) /hpf 04/05/23 Range/Units 03:47 WBC (3.8-10.6) k/uL Neutrophils # (1.3-7.7) k/uL Potassium 3.2 L (3.5-5.1) mmol/L BUN 25 H (9-20) mg/dL Creatinine (0.66-1.25) mg/dL Glucose (74-99) mg/dL Alkaline Phosphatase (38-126) U/L Urine Blood (Negative) Ur Leukocyte Esterase (Negative) Urine RBC (0-5) /hpf Urine WBC (0-5) /hpf Urine Bacteria (None) /hpf Urine Mucus (None) /hpf Thrombosis Risk Factor Assmnt - Choose All That Apply Any of the Below Risk Factors Present?: No Other Risk Factors: Yes Each Risk Factor Represents 2 Points: Age 61-74 years Other congenital or acquired thrombophilia - If yes, enter type in comment: No Thrombosis Risk Factor Assessment Total Risk Factor Score: 2 Thrombosis Risk Factor Assessment Level: Low Risk
[2023-04-05] MEDS: ENOXAPARIN 40 MG/0.4 ML SYRINGE SQ SCH (17:19)
[2023-04-05] MEDS: LEVOFLOXACIN 750MG-D5W PMX 750 MG in DEXTROSE/WATER 1 150ML.BAG IVPB SCH (22:08)
[2023-04-06 06:22] LABS: Basophils % (A) 0 %; Eosinophils # (A) 0.1 k/uL (0-0.7); Eosinophils % (A) 1 %; HCT 41.5 % (39.0-53.0); HGB 13.8 gm/dL (13.0-17.5); Lymphocytes # (A) 1.3 k/uL (1.0-4.8); Lymphocytes % (A) 14 %; MCH 31.4 pg (25.0-35.0); MCHC 33.4 g/dL (31.0-37.0); Mean Platelet Volume 7.6; Monocytes # (A) 0.7 k/uL (0-1.0); Monocytes % (A) 7 %; Neutrophils % (A) 76 %; Platelet Count 181 k/uL (150-450); RBC 4.41 m/uL (4.30-5.90); RDW 13.4 % (11.5-15.5); WBC 9.2 k/uL (3.8-10.6)
[2023-04-06 06:33] LABS: African American GFR (CKD) >90 (>60 ml/min/1.73 sqM); Anion Gap 6 mmol/L; Blood Urea Nitrogen 18 mg/dL (9-20); Calcium 9.2 mg/dL (8.4-10.2); Carbon Dioxide 33 mmol/L (22-30); Chloride 99 mmol/L (98-107); Glucose 129 mg/dL (74-99); Non-African American GFR(CKD) >90 (>60 ml/min/1.73 sqM); Potassium 3.5 mmol/L (3.5-5.1); Sodium 138 mmol/L (137-145)
[2023-04-06] MEDS: PANTOPRAZOLE 40 MG TABLET PO SCH (06:49)
[2023-04-06] MEDS: amLODIPine 5 MG TAB PO SCH (08:32)
--- NOTE | 2023-04-06 10:47 | P.PN ---
Subjective Progress Note Date: 04/06/23 The patient is in the hospital with a left epididymal orchitis. He is on antibiotics. Cultures are pending. He feels okay. Objective - Vital Signs Vital signs: Vital Signs Temp 98.3 F 04/06/23 02:02 Pulse 78 04/06/23 06:53 Resp 18 04/06/23 06:53 BP 128/78 04/06/23 06:53 Pulse Ox 96 04/06/23 06:53 FiO2 Intake & Output 04/05/23 04/06/23 04/06/23 18:59 06:59 18:59 Intake Total 900 Balance 900 Intake: Oral 900 Other: Voiding Method Self-Catheterization Self-Catheterization Self-Catheterization # Voids 4 4 # Bowel Movements 1 4 - Genitourinary Genitourinary Comment(s): His left epididymal orchitis has decreased in size is no abscess. - Labs CBC & Chem 7: 04/06/23 05:51 04/06/23 05:51 Labs: Abnormal Lab Results - Last 24 Hours (Table) 04/06/23 Range/Units 05:51 Carbon Dioxide 33 H (22-30) mmol/L Creatinine 0.53 L (0.66-1.25) mg/dL Glucose 129 H (74-99) mg/dL Assessment and Plan Assessment: Impression: Neurogenic bladder, chronic intermittent catheterization. Left epididymoorchitis resolving. Recommendations: The patient should continue with IV antibiotics until the cultures are back. He should be placed on oral antibiotics for one month. He should follow-up with in the office.
[2023-04-06] MEDS: TESTOSTERONE TOPICAL SCH (14:15)
--- NOTE | 2023-04-06 15:11 | P.PN ---
Progress Note - Text Progress Note Date: 04/06/23 Chief Complaint: Fever Very pleasant 72-year-old patient who follows Dr. Baez. Chronic stable medical conditions include osteoarthritis, anxiety, BPH, hypertension, stroke in 2019.uses a walker. He has numbness in the right leg below the knee downwards and in the left leg in the ankle and the foot. Has partial bowel movement control. - self bladder catheterization 4-5 times a day. history of recurrent UTIs. Uses a walker. Patient now presents to the ER with some pain discomfort in the scrotum. Also spiked a fever. Patient has been trying to bear down to have a bowel movement. Tired chills. Will start antibiotic in the ER. Urology was consulted. Patient at the bedside. No change in patient's appetite. Patient urine had become rather dark. Also complained of dysuria. April 06: Feeling better. Eating better. Doing straight catheterization. Urine is growing gram-negative bacilli. No fever. IV Levaquin. Active Medications Alprazolam (Alprazolam 0.25 Mg Tab) 0.25 mg PO [facility] Last Admin: 04/05/23 22:08 Dose: 0.25 mg Amlodipine Besylate (Amlodipine 5 Mg Tab) 5 mg PO DAILY [facility] Last Admin: 04/06/23 08:32 Dose: 5 mg Aspirin (Aspirin 325 Mg Tab) 325 mg PO DAILY [facility] Last Admin: 04/06/23 08:32 Dose: 325 mg Atorvastatin Calcium (Atorvastatin 80 Mg Tab) 80 mg PO [facility] Last Admin: 04/05/23 22:08 Dose: 80 mg Enoxaparin Sodium (Enoxaparin 40 Mg/0.4 Ml Syringe) 40 mg SQ DAILY [facility] Last Admin: 04/06/23 08:32 Dose: 40 mg Finasteride (Finasteride 5 Mg Tab) 5 mg PO DAILY [facility] Last Admin: 04/06/23 08:32 Dose: 5 mg Gabapentin (Gabapentin 300 Mg Cap) 300 mg PO TID [facility] Last Admin: 04/06/23 08:32 Dose: 300 mg Sodium Chloride (Saline 0.9%) 1,000 mls @ 130 mls/hr IV .Q7H42M [facility] Last Admin: 04/05/23 23:03 Dose: Not Given Levofloxacin 750 mg/ IV (Solution) 150 mls @ 100 mls/hr IVPB Q24H [facility]; Protocol Last Admin: 04/05/23 22:08 Dose: 100 mls/hr Losartan Potassium (Losartan 50 Mg Tab) 100 mg PO DAILY [facility] Last Admin: 04/06/23 08:32 Dose: 100 mg Morphine Sulfate (Morphine Sulfate 4 Mg/Ml Syringe) 4 mg IV Q4HR PRN PRN Reason: Severe Pain (Scale 7 to 10) Naloxone HCl (Naloxone 0.4 Mg/Ml 1 Ml Vial) 0.2 mg IV Q2M PRN PRN Reason: Opioid Reversal Non-Formulary Medication (Testosterone [Androgel 1% Gel Packet]) 1 packet TOPICAL DAILY [facility] Last Admin: 04/06/23 14:15 Dose: Not Given Ondansetron HCl (Ondansetron 4 Mg/2 Ml Vial) 4 mg IVP Q8HR PRN PRN Reason: Nausea And Vomiting Pantoprazole Sodium (Pantoprazole 40 Mg Tablet) 40 mg PO AC-BRKFST [facility] Last Admin: 04/06/23 06:49 Dose: 40 mg Potassium Chloride (Potassium Chloride Er 20 Meq Tab.Er) 20 meq PO HS [facility] Last Admin: 04/05/23 22:08 Dose: 20 meq Potassium Chloride (Potassium Chloride Er 20 Meq Tab.Er) 40 meq PO DAILY [facility] Last Admin: 04/06/23 08:32 Dose: 40 meq Psyllium Hydrophilic Mucilloid (Psyllium Husk 100% 6 Gm Packet) 6 gm PO BID [facility] Last Admin: 04/06/23 08:32 Dose: 6 gm Tamsulosin HCl (Tamsulosin 0.4 Mg Cap.Er.24h) 0.4 mg PO DAILY [facility] Last Admin: 04/06/23 08:32 Dose: 0.4 mg Tramadol HCl (Tramadol 50 Mg Tab) 50 mg PO TID PRN PRN Reason: MILD TO MODERATE PAIN Last Admin: 04/06/23 02:10 Dose: 50 mg Past medical history to include: Spinal cord stroke in 2019, causing lower extremity weakness, bladder dysfunction, osteoarthritis, anxiety, hypertension, peripheral neuropathy Social history: . No history of smoking and alcohol. Does use a walker Family history: CHF Physical examination: VITAL SIGNS: Afebrile, 76, 18, 103/76, 99% room air GENERAL: Laying in bed, comfortable EYES: Pupils equal. Conjunctiva normal. HEENT: External appearance of nose and ears normal, oral cavity grossly normal. NECK: JVD not raised; masses not palpable. HEART: First and second heart sounds are normal; no edema. LUNGS: Respiratory rate normal; clear to auscultation. ABDOMEN: Soft, nontender, liver spleen not palpable, no masses palpable. Right scrotum swollen with tenderness.: Better PSYCH: Alert and oriented x3; mood and affect normal. NEUROLOGICAL: [Cranial nerves grossly intact; no facial asymmetry, decreased power bilateral lower extremity. Decreased sensation INVESTIGATIONS, reviewed in the clinical context: April 06: White count 9.2 hemoglobin 13.8 potassium 3.5. Procalcitonin 0.09 Urine culture: Gram-negative bacilli April 05: White count 9.3 improved to 14.5 potassium 3.2 creatinine 0.69 April 04: White count 9.6 hemoglobin 16.9 potassium 3.2 creatinine 0.5 UA: Positive for leukoesterase WBC Assessment and plan: -Acute UTI with cystitis secondary self-catheterization., Causing sepsis.: Much better Urine culture gram-negative bacilli IV Levaquin started in the ER. -Sepsis secondary to above Levaquin. IV fluids. -Acute left epididymal -orchitis: Local support. IV Levaquin -Hyperlipidemia Lipitor 80 mg daily at bedtime -GERD Protonix 40 mg by mouth daily -Essential hypertension, blood pressure running lower side. Cut back amlodipine to once a day. Stop chlorthalidone. -Peripheral neuropathy Gabapentin 300 mg 3 times a day - hydrocele -BPH, bladder outflow obstruction Proscar 5 mg daily, Flomax 0.4 mg daily -Neurogenic bladder from spinal cord stroke Patient does self-catheterization 4-5 times a day. Discussed with patient. Doing better. Awaiting culture to finalize. Past Medical History Past Medical History: CVA/TIA, Hypertension Additional Past Medical History / Comment(s): incomplete spinal cord stroke per pt, partially paralyzed waist down, stem cell therapy. 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
--- NOTE | 2023-04-07 09:13 | P.PN ---
Subjective Progress Note Date: 04/07/23 Principal diagnosis: Left epididymo-orchitis Mr. Samaniego is receiving IV Levaquin. He is afebrile with stable vital signs. He states that he is feeling much better, and that his left testicular pain has essentially resolved. He states that the swelling is somewhat improved. Objective - Vital Signs Vital signs: Vital Signs Temp 97.9 F 04/07/23 02:02 Pulse 73 04/07/23 02:02 Resp 20 04/07/23 02:02 BP 116/72 04/07/23 02:02 Pulse Ox 96 04/07/23 02:02 FiO2 Intake & Output 04/06/23 04/06/23 04/07/23 06:59 18:59 06:59 Intake Total 900 950 Balance 900 950 Intake: Oral 900 950 Other: Voiding Method Self-Catheterization Self-Catheterization Self-Catheterization # Voids 4 3 4 # Bowel Movements 4 - Constitutional General appearance: Present: average body habitus, cooperative, no acute dis tress - Genitourinary Genitourinary Comment(s): Normal phallus, normal right testicle. The left testicle is moderately enlarged and indurated. - Psychiatric Psychiatric: Present: A&O x's 3 - Labs CBC & Chem 7: 04/06/23 05:51 04/06/23 05:51 Labs: Microbiology - Last 24 Hours (Table) 04/04/23 18:30 Urine Culture - Preliminary Urine,Voided Gram Neg Bacilli Assessment and Plan (1) Epididymo-orchitis Current Visit: Yes Status: Acute Code(s): N45.3 - EPIDIDYMO-ORCHITIS SNOMED Code(s): 495664307 Plan: The patient's condition has improved while receiving IV Levaquin. Urine culture shows gram-negative bacilli. From a urologic standpoint, he may be discharged home on an appropriate oral antibiotic once the urine culture is completed. He has been advised to follow-up with Dr. Felder in 2 weeks. He will continue to perform intermittent self-catheterization.
[2023-04-07 14:10] VITALS: BP 116/73; PULSE 77; RESP 18; TEMP 97.8
--- NOTE | 2023-04-08 13:10 | P.DS ---
Providers Date of admission: 04/04/23 21:28 Expected date of discharge: 04/07/23 Attending physician: John Jean-Baptiste Consults: 04/04/23 21:24 Consult Physician Routine Consulting Provider: Sean Francis Consult Reason/Comments: epididomyorchitis Do you want consulting provider notified?: Yes Primary care physician: [facility] Course: Chief Complaint: Fever Very pleasant 72-year-old patient who follows Dr. Baez. Chronic stable medical conditions include osteoarthritis, anxiety, BPH, hypertension, stroke in 2019.uses a walker. He has numbness in the right leg below the knee downwards and in the left leg in the ankle and the foot. Has partial bowel movement control. - self bladder catheterization 4-5 times a day. history of recurrent UTIs. Uses a walker. Patient now presents to the ER with some pain discomfort in the scrotum. Also spiked a fever. Patient has been trying to bear down to have a bowel movement. Tired chills. Will start antibiotic in the ER. Urology was consulted. Patient at the bedside. No change in patient's appetite. Patient urine had become rather dark. Also complained of dysuria. April 06: Feeling better. Eating better. Doing straight catheterization. Urine is growing gram-negative bacilli. No fever. IV Levaquin. April 07: Doing well. No fever. Urine culture came back growing E. coli. Patient will complete 5 more days of Ceftin. Care was discussed with patient at the bedside. Questions answered. Follow-up with urology outpatient. Discussion and discharge planning more than 35 minutes Past medical history to include: Spinal cord stroke in 2019, causing lower extremity weakness, bladder dysfunction, osteoarthritis, anxiety, hypertension, peripheral neuropathy Social history: . No history of smoking and alcohol. Does use a walker Family history: CHF Physical examination: VITAL SIGNS: 97.8, 77, 18, 116/73, 97% room air GENERAL: Laying in bed, comfortable EYES: Pupils equal. Conjunctiva normal. HEENT: External appearance of nose and ears normal, oral cavity grossly normal. NECK: JVD not raised; masses not palpable. HEART: First and second heart sounds are normal; no edema. LUNGS: Respiratory rate normal; clear to auscultation. ABDOMEN: Soft, nontender, liver spleen not palpable, no masses palpable. Right scrotum swollen with tenderness.: Better PSYCH: Alert and oriented x3; mood and affect normal. NEUROLOGICAL: [Cranial nerves grossly intact; no facial asymmetry, decreased power bilateral lower extremity. Decreased sensation INVESTIGATIONS, reviewed in the clinical context: Urine culture: E. coli April 06: White count 9.2 hemoglobin 13.8 potassium 3.5. Procalcitonin 0.09 Urine culture: Gram-negative bacilli April 05: White count 9.3 improved to 14.5 potassium 3.2 creatinine 0.69 April 04: White count 9.6 hemoglobin 16.9 potassium 3.2 creatinine 0.5 UA: Positive for leukoesterase WBC Assessment and plan: -Acute UTI with cystitis secondary self-catheterization., Causing sepsis. Secondary to E. coli: Much better IV Levaquin started in the ER.. Ceftin 500 twice daily for 5 days -Sepsis secondary to above Levaquin. IV fluids. -Acute left epididymal -orchitis: Improved Local support. IV Levaquin -Hyperlipidemia Lipitor 80 mg daily at bedtime -GERD Protonix 40 mg by mouth daily -Essential hypertension, blood pressure running lower side. Cut back amlodipine to 5 mg once a day. Stop chlorthalidone. -Peripheral neuropathy Gabapentin 300 mg 3 times a day - hydrocele -BPH, bladder outflow obstruction Proscar 5 mg daily, Flomax 0.4 mg daily -Neurogenic bladder from spinal cord stroke Patient does self-catheterization 4-5 times a day. Disposition: Home Past Medical History Past Medical History: CVA/TIA, Hypertension Additional Past Medical History / Comment(s): incomplete spinal cord stroke per pt, partially paralyzed waist down, stem cell therapy. 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, VRE Date of last positivie culture/infection: 12/31/19 MDRO Source:: urine Past Surgical History: No Surgical Hx Reported Additional Past Surgical History / Comment(s): kidney stone removed with stent placement, since removed; left achilles tendon repair Past Anesthesia/Blood Transfusion Reactions: No Reported Reaction Past Psychological History: No Psychological Hx Reported Smoking Status: Former smoker Past Alcohol Use History: None Reported Past Drug Use History: Marijuana Patient Condition at Discharge: Fair Plan - Discharge Summary Discharge Rx Participant: No New Discharge Prescriptions: New Cefuroxime [Ceftin] 250 mg PO BID #10 tab Psyllium Husk 100% [Metamucil Packet] 6 gm PO BID packet Continue Losartan Potassium 100 mg PO DAILY Tamsulosin HCl [Flomax] 0.4 mg PO DAILY Pantoprazole Sodium 40 mg PO DAILY Atorvastatin Calcium [Lipitor] 80 mg PO HS Aspirin EC [Ecotrin] 325 mg PO DAILY Gabapentin 300 mg PO TID ALPRAZolam [Xanax] 0.25 mg PO HS traMADol HCl [Ultram] 50 mg PO TID PRN PRN Reason: Pain Testosterone [Androgel 1% Gel Packet] 1 packet TOPICAL DAILY Finasteride [Proscar] 5 mg PO DAILY Changed amLODIPine [Norvasc] 5 mg PO HS #0 Discontinued Potassium Chloride ER [K-Dur 20] 40 meq PO DAILY Potassium Chloride ER [K-Dur 20] 20 meq PO HS Chlorthalidone [Hygroton] 25 mg PO DAILY Discharge Medication List Losartan Potassium 100 mg PO DAILY 12/11/15 [History] Atorvastatin Calcium [Lipitor] 80 mg PO HS 12/08/19 [History] Pantoprazole Sodium 40 mg PO DAILY 12/08/19 [History] Tamsulosin HCl [Flomax] 0.4 mg PO DAILY 12/08/19 [History] Aspirin EC [Ecotrin] 325 mg PO DAILY 12/03/20 [History] Finasteride [Proscar] 5 mg PO DAILY 12/03/20 [History] Gabapentin 300 mg PO TID 12/03/20 [History] Testosterone [Androgel 1% Gel Packet] 1 packet TOPICAL DAILY 12/03/20 [History] traMADol HCl [Ultram] 50 mg PO TID PRN 12/03/20 [History] ALPRAZolam [Xanax] 0.25 mg PO HS 04/04/23 [History] Cefuroxime [Ceftin] 250 mg PO BID #10 tab 04/07/23 [Rx] Psyllium Husk 100% [Metamucil Packet] 6 gm PO BID packet 04/07/23 [Rx] amLODIPine [Norvasc] 5 mg PO HS #0 04/07/23 [Rx] Follow up Appointment(s)/Referral(s): Rip Baez DO [Primary Care Provider] - 04/10/23 8:40 am Johnny Felder MD [STAFF PHYSICIAN] - 04/28/23 2:00 pm Patient Instructions/Handouts: Urinary Tract Infection in Men (DC) Discharge Disposition: HOME SELF-CARE
== END 2023-04-07 17:11 | disposition home or self-care (01) | DRG 698 ==
LOC: EC 17:27 → 4SSUR 21:28
PROVIDERS: ADMIT Hospitalist; ATTEND Hospitalist
DX: T83.518A Infection and inflammatory reaction due to other urinary catheter, initial encounter (principal); A41.51 Sepsis due to Escherichia coli [E. coli]; G82.20 Paraplegia, unspecified; N13.8 Other obstructive and reflux uropathy; N30.00 Acute cystitis without hematuria; I10 Essential (primary) hypertension; E78.5 Hyperlipidemia, unspecified; K21.9 Gastro-esophageal reflux disease without esophagitis; F41.9 Anxiety disorder, unspecified; N43.3 Hydrocele, unspecified; N45.3 Epididymo-orchitis; N31.9 Neuromuscular dysfunction of bladder, unspecified; N40.1 Benign prostatic hyperplasia with lower urinary tract symptoms; M19.90 Unspecified osteoarthritis, unspecified site; Z79.82 Long term (current) use of aspirin; Z79.890 Hormone replacement therapy; Z79.899 Other long term (current) drug therapy; Z86.73 Personal history of transient ischemic attack (TIA), and cerebral infarction without residual deficits; Z87.440 Personal history of urinary (tract) infections; Z87.442 Personal history of urinary calculi; Z86.19 Personal history of other infectious and parasitic diseases; Z88.5 Allergy status to narcotic agent
CPT/HCPCS: 36415; 76870; 80048; 80053; 81001; 83605; 83735; 84100; 84145; 84484; 85025; 87077; 87086; 87186; 93975; 96361; 96365; 99285